=== PATIENT | male | born 1960 | race Caucasian/White ===

== ENCOUNTER → 2016-05-04 | Outpatient (CLI) | payer OTHER ==
[~2016-05-04] MED LIST: APIX1TAB PO; ASPEC81 PO; COLC0.6T54 PO; ERGO500037 PO; LPR100 PO; TRMO2580 TOP
== END | disposition home or self-care (01) ==
LOC: C.LAB 15:27
PROVIDERS: ATTEND Urology
DX: C61 Malignant neoplasm of prostate (principal)

== ENCOUNTER → 2016-07-12 | Outpatient (CLI) | payer OTHER ==
--- NOTE | 2016-07-12 11:23 | DIAGNOSTIC IMAGING REPORT ---
CHEST 2 VIEWS ROUTINE CLINICAL HISTORY: SOB dyspnea COMPARISON STUDY: 01/13/2016 FINDINGS: The bones soft tissues and hemidiaphragms are normal. The cardiomediastinal silhouette is normal. The lungs are clear. The pulmonary vasculature is normal. IMPRESSION: Negative chest. Electronically signed by: José Haley M.D. 07/12/2016 11:22 AM Dictated Date/Time: 07/12/2016 11:22 AM
== END | disposition home or self-care (01) ==
LOC: C.RAD1850 11:06
PROVIDERS: ATTEND Family Medicine
DX: R06.02 Shortness of breath (principal)

== ENCOUNTER 2024-03-11 16:39 | Inpatient (IN) ==
[2024-03-11] MEDS: SODIUM CHLORIDE 0.9% 1,000 ML IV ONE ×2 (16:57→17:48)
--- NOTE | 2024-03-11 17:12 | Emergency Department Note ---
Impression & Plan Acute perforated appendicitis, Acute hypotension, Atrial fibrillation, permanent, Chronic anticoagulation, Vomiting and diarrhea ED Provider Note NAME: LIZA STERLING AGE: 63 SEX: Male INFORMANT: Patient ED PROVIDER(S): Kevyn Khalil MD CHIEF COMPLAINT: Hypotension PLAN: Disposition: Admitted Outpatient prescription management: none Referral: None MEDICAL DECISION MAKING: Patient presented with hypotension. Workup was initiated. ECG did not show any acute ischemia. The patient was started on normal saline bolus. He had some tenderness in the right lower quadrant. He was found to have a leukocytosis on CBC. Chemistry panel revealed severe elevation of his creatinine. Potassium is normal. Concerning for acute renal failure. The patient received 1.5 L of normal saline for bolus. Blood pressure improved. Patient was sent for CT imaging. He was found to have findings concerning for perforated appendicitis. IV Zosyn was ordered after blood cultures. Patient's lactate was normal. I did place a consult with general surgery, internal medicine, and nephrology. Discussed the case with Dr. Zuluaga of general surgery. He agreed with the fluids and antibiotics. He will evaluate the patient for consultation. Did discuss the case with Dr. Turpin of nephrology. He recommended continued fluid resuscitation and also a dose of sodium bicarbonate. I did order 1 amp of sodium bicarb. Consultation was made with Dr. Be of the [facility] service. Patient was evaluated in the ER for further management. The patient was given additional fluid resuscitation with lactated Ringer's for total of 3 L. [place] body weight for sepsis was 2.1 L. Did consider pressors but however the patient's blood pressure improved into the 90s. This is likely mostly due to volume contraction due to poor intake and increased output. Patient also took his blood pressure medications which is complicating the issue. Patient will be admitted to the ICU for further management and care. I refer you to the EMR for further details. Care/management discussed with: Case management, nephrology, general surgery, internal medicine Level of care consideration(s): After review of the information above and other included data, I feel the patient requires escalation of care to admission Triage Nursing notes: reviewed and agree them. Vital Signs: reviewed and remarkable for hypotension Additional History obtained from: none Chronic Medical/Social Conditions affecting care: Hypertension Prior/ Outside/ External records reviewed: none Differential Diagnosis: Infection, dehydration, metabolic abnormality, hypo/hyperglycemia, electrolyte disturbance, anemia, hypoxia, cardiac sources, intracerebral event, toxicologic, neurologic, as well as other pathologies. Diagnostics, independently interpreted by me: ECG: Twelve-lead ECG reveals atrial fibrillation at [address] elevation or depression. Nonspecific ST. Cardiac Monitoring: Cardiac monitoring ordered by me: The patient was placed on continuous cardiac monitoring and observed. It revealed a atrial fibrillation at 54 bpm. Medical decision rules: none Imaging studies: CT scan of the abdomen pelvis reveals findings concerning for perforated appendicitis. No large fluid abscess present. I refer you to the EMR for further details. HPI: 63 year old Male arrives for evaluation of hypotension. Patient went to urgent care because of concerns for food poisoning. He states that he has had some nausea and vomiting with more diarrhea. Last diarrhea episode was 2 days ago. He has had decreased p.o. intake. He had some urine output but decreased. He is feeling weak and tired especially with exertion. He went to urgent care and was found to have hypotension. He was referred to the ER for further management. Patient notes some right-sided abdominal discomfort at times. He thinks that he got food poisoning from old marinara sauce on a dish that he prepared for himself. Patient was given no medication prehospital. Patient took his metoprolol last yesterday. He did take diltiazem, spironolactone, and his Xarelto today. Pt denies LOC, headache, fevers, chills, diaphoresis, visual changes, neck pain, chest pain, breathing difficulties, back pain, melena, hematochezia, urinary symptoms, numbness, lymphadenopathy, rash, or other complaints. PAST MEDICAL HISTORY: See Below, A-fib PAST SURGICAL HISTORY: See Below, SOCIAL HISTORY: See Below, no smoking HOME MEDICATIONS: See Below ALLERGIES: See Below VITALS: See Below PHYSICAL EXAMINATION: GENERAL: Awake, tired -appearing, in no distress HENT: Normocephalic, atraumatic. Oropharynx unremarkable. EYES: Normal conjunctiva. Sclera non-icteric. NECK: Inspection normal. Non-tender. Supple. No nuchal rigidity. FROM. No masses. RESPIRATORY: Clear to auscultation. No wheezes. No rales. Normal respiratory effort. CARDIAC: Normal rate. Normal rhythm. No murmurs. No rubs. Extremities warm and well perfused. Pulses equal. No JVD. GI: Soft, non-distended. Mild right lower chronic venous tenderness to palpation. No rebound or guarding. No masses. RECTAL: Deferred. MUSCULOSKELETAL: Atraumatic. Chest examination reveals no tenderness. The back is symmetrical on inspection without obvious abnormality. There is no CVA tenderness to palpation. No joint edema. LOWER EXTREMITIES: Calves are equal size bilaterally and non-tender. No edema. No discoloration. NEURO: Normal sensorium. No sensory or motor deficits noted. SKIN: No rash or jaundice noted. PROCEDURES: none CRITICAL CARE: I have personally spent 45 minutes of critical care time in the direct management of this patient. This includes bedside care, interpretation of diagnostic studies, and testing, discussion with consultants, patient, and other required patient management activities. These minutes are in excess of all separately billable procedures. OBSERVATION NOTE: none Past Med/Surg History Problem List (Updated 03/11/24 @ 22:36 by Kevyn Khalil MD) Acute perforated appendicitis (Acute) Metabolic acidosis Sepsis Acute kidney injury Appendicitis Vomiting and diarrhea (Acute) Acute hypotension (Acute) Stroke-like symptoms TIA (transient ischemic attack) Reactive airway disease Post-nasal drip Benign prostatic hyperplasia with urinary obstruction (Acute) CVA (cerebral vascular accident) (Acute) Dyslipidemia (Acute) Dyspnea on exertion (Acute) Elevated PSA (Acute) Incomplete bladder emptying (Acute) LVH (left ventricular hypertrophy) (Acute) Neoplasm of prostate (Acute) Obesity (Acute) Renal disease (Acute) Restless legs syndrome (Acute) Secondary hyperparathyroidism (Acute) UTI (urinary tract infection) (Acute) History of urinary frequency (Acute) Chronic anticoagulation (Acute) Atrial fibrillation, permanent (Acute) Vitamin D deficiency Chronic kidney disease, stage III (moderate) HTN (hypertension) (Chronic) Heart disease (Chronic) Abrasion (Acute) Acute renal failure (Acute) Fever (Acute) Flank pain (Acute) Prostate cancer (Acute 10/04/14) "Family history of prostate cancer Abnormal digital rectal exam pretreatment PSA 3.160 Status post ultrasound-guided biopsies revealing adenocarcinoma the prostate biopsy stage T2b [place] grade 3+3 Prostate volume 48.7 Prostate density 0.065 " Systemic inflammatory response syndrome (Acute) Medical History Atrial fibrillation, persistent Hematospermia Gout Surgical History H/O oral surgery H/O adenoidectomy Family History Father Prostate cancer Mother Breast cancer Heart disorder Social History Smoking Status: Never smoker Hx Alcohol Use: Yes Preferred Language: Kazakh marital status: Single current occupational status: employed Feels Safe at Home: Yes Allergies Allergies Allergy/AdvReac Type Severity Reaction Status Date / Time No Known Allergies Allergy Verified 03/11/24 18:46 Home Meds Home Medications Medication Instructions Recorded Confirmed atorvastatin 80 mg tablet 80 mg PO DAILY #90 tabs 01/19/19 03/11/24 metoprolol succinate 100 mg 100 mg PO DAILY 01/19/19 03/11/24 tablet,extended release 24 hr gabapentin 300 mg capsule 300 - 600 mg PO DAILY PRN Pain #90 03/25/19 03/11/24 caps losartan 100 mg tablet 100 mg PO DAILY 11/02/19 03/11/24 allopurinol 300 mg tablet 300 mg PO DAILY 11/07/20 03/11/24 ascorbic acid (vitamin C) 500 mg 1,500 mg PO DAILY 12/19/22 03/11/24 tablet (Vitamin C) multivitamin 1 tab PO DAILY 12/19/22 03/11/24 omeprazole 20 mg capsule,delayed 20 mg PO DAILY 03/11/24 03/11/24 release spironolactone 25 mg tablet 25 mg PO DAILY 03/11/24 03/11/24 Previous Rx's Medication Instructions Recorded rivaroxaban 15 mg tablet (Xarelto) 15 mg PO DAILY #30 tabs 05/24/22 finasteride 5 mg tablet 5 mg PO DAILY #90 tabs 10/16/23 calcitriol 0.25 mcg capsule 0.25 mcg PO DAILY #90 caps 03/03/24 diltiazem HCl 240 mg 240 mg PO DAILY #90 caps 03/03/24 capsule,extended release 24 hr tamsulosin 0.4 mg capsule 0.4 mg PO BID #180 caps 03/03/24 Results & Data (ED) Vital Signs Vital Signs - 24 hr 03/11/24 16:42 03/11/24 16:51 03/11/24 16:58 Temperature 36.6 C Temperature Source Oral Pulse Rate 56 L 62 Pulse Rate from SpO2 Sensor Respiratory Rate 18 Respiratory Effort / Characteristics Non-Labored Respiratory Depth Normal Blood Pressure 67/42 L Blood Pressure Mean 50 Pulse Oximetry 96 Oxygen Delivery Method Room Air Room Air Sepsis Recent Fever Within 48 Hours No Sepsis New/Unexplained Change in Mental Status No Sepsis Action Taken by Nursing No Action Required 03/11/24 17:03 03/11/24 17:18 03/11/24 17:45 Temperature Temperature Source Pulse Rate 61 64 Pulse Rate from SpO2 Sensor 65 63 Respiratory Rate 21 13 Respiratory Effort / Characteristics Respiratory Depth Blood Pressure 78/53 L 88/51 L 82/52 L Blood Pressure Mean 58 63 62 Pulse Oximetry 95 96 Oxygen Delivery Method Sepsis Recent Fever Within 48 Hours Sepsis New/Unexplained Change in Mental Status Sepsis Action Taken by Nursing 03/11/24 18:03 03/11/24 18:30 03/11/24 19:03 Temperature Temperature Source Pulse Rate 64 64 64 Pulse Rate from SpO2 Sensor 60 65 64 Respiratory Rate 21 27 H 28 H Respiratory Effort / Characteristics Respiratory Depth Blood Pressure 82/56 L 83/58 L 79/58 L Blood Pressure Mean 64 66 65 Pulse Oximetry 95 97 95 Oxygen Delivery Method Sepsis Recent Fever Within 48 Hours Sepsis New/Unexplained Change in Mental Status Sepsis Action Taken by Nursing 03/11/24 19:27 Temperature Temperature Source Pulse Rate 66 Pulse Rate from SpO2 Sensor 66 Respiratory Rate 18 Respiratory Effort / Characteristics Respiratory Depth Blood Pressure 90/59 L Blood Pressure Mean 69 Pulse Oximetry 96 Oxygen Delivery Method Sepsis Recent Fever Within 48 Hours Sepsis New/Unexplained Change in Mental Status Sepsis Action Taken by Nursing Laboratory Data 03/11/24 17:00 03/11/24 17:00 Lab Results 03/11/24 03/11/24 Range/Units 17:00 18:11 WBC 12.51 H (4.8-10.8) K/ul RBC 6.37 H (4.70-6.10) M/uL Hgb 13.5 L (14.0-18.0) g/dl Hct 43.1 (42.0-52.0) % MCV 67.7 L (80.0-100.0) fL MCH 21.2 L (25.0-34.0) pg MCHC 31.3 L (32.0-36.0) g/dL RDW Std Deviation 35.9 L (36.4-46.3) fL RDW Coeff of Aram 16.4 H (11.5-14.5) % Plt Count 288 (130-400) K/uL MPV 11.7 (9.4-12.4) fL Immature Gran % (Auto) 0.8 % Neut % (Auto) 79.0 % Lymph % (Auto) 12.6 % [place] % (Auto) 6.7 % Eos % (Auto) 0.6 % Baso % (Auto) 0.3 % Neut # (Auto) 9.87 H (1.40-6.50) K/uL Lymph # (Auto) 1.58 (1.20-3.40) K/uL [place] # (Auto) 0.84 H (0.11-0.59) K/uL Eos # (Auto) 0.08 (0.00-0.50) K/uL Baso # (Auto) 0.04 (0.00-0.20) K/uL Immature Gran # (Auto) 0.10 (0.01-0.20) K/uL Microcytosis Present Sodium 136 (136-145) mmol/L Potassium 4.9 (3.5-5.1) mmol/L Chloride 106 (98-107) mmol/L Carbon Dioxide 16 L (21-32) mmol/L Anion Gap 14 H (3-11) BUN 130 H (6-23) mg/dl Creatinine 8.18 H* (0.6-1.4) mg/dl Est Cr Clr Drug Dosing 11.6 ml/min eGFR 6.88 BUN/Creatinine Ratio 15.9 (10-20) Glucose 96 (70-99(Fasting)) mg/dl Lactate 1.0 (0.4-2.0) mmol/L Calcium 8.9 (8.6-10.3) mg/dl Total Bilirubin 0.5 (0.2-1.0) mg/dl AST 18 (13-39) U/L ALT 28 (7-52) U/L Alkaline Phosphatase 73 (34-104) U/L Total Protein 7.4 (6.0-8.3) gm/dl Albumin 3.1 L (3.4-5.0) gm/dl Globulin 4.3 H (2.5-4.0) gm/dl Albumin/Globulin Ratio 0.7 L (0.9-2) Lipase 352 H (11-82) U/L Procalcitonin 1.65 H (0-0.5) ng/ml Administered Medications Discontinued Medications Sodium Chloride (Nss) 1,000 mls @ 999 mls/hr IV .Q1H1M ONE Stop: 03/11/24 17:54 Last Infusion: 03/11/24 17:48 Dose: Infused Documented By: Admin: 03/11/24 16:57 Dose: 999 mls/hr Documented By: MERNA Sodium Chloride (Nss) 1,000 mls @ 999 mls/hr IV .Q1H1M ONE Stop: 03/11/24 18:45 Last Infusion: 03/11/24 18:15 Dose: Infused Documented By: Admin: 03/11/24 17:48 Dose: 999 mls/hr Documented By: HANNAH Piperacillin Sod/Tazobactam Sod (Zosyn) 4.5 gm in 100 mls @ 200 mls/hr IV NOW ONE; Protocol Stop: 03/11/24 18:25 Last Infusion: 03/11/24 19:19 Dose: Infused Documented By: Admin: 03/11/24 18:48 Dose: 200 mls/hr Documented By: MERNA Sodium Chloride (Nss) 500 mls @ 999 mls/hr IV .Q31M ONE Stop: 03/11/24 18:26 Last Admin: 03/11/24 18:16 Dose: Not Given Documented By: NRB Lactated Ringer's (Lr) 1,000 mls @ 999 mls/hr IV .Q1H1M ONE Stop: 03/11/24 19:11 Last Infusion: 03/11/24 19:19 Dose: Infused Documented By: Admin: 03/11/24 18:16 Dose: 999 mls/hr Documented By: NRB Lactated Ringer's (Lr) 1,000 mls @ 999 mls/hr IV .Q1H1M ONE Stop: 03/11/24 20:03 Last Infusion: 03/11/24 20:29 Dose: Infused Documented By: Admin: 03/11/24 19:18 Dose: 999 mls/hr Documented By: MERNA Piperacillin Sod/Tazobactam Sod (Zosyn) 4.5 gm in 100 mls @ 25 mls/hr IV Q8H [facility]; Protocol Stop: 03/21/24 19:44 Last Admin: 03/11/24 20:33 Dose: Not Given Documented By: MERNA Ondansetron HCl (Ondansetron Inj 2 Mg/Ml 2 Ml Vial) 4 mg IV NOW STA Stop: 03/11/24 17:48 Last Admin: 03/11/24 18:46 Dose: 4 mg Documented By: MERNA Sodium Bicarbonate (Sodium Bicarb 8.4% Inj 50 Meq/50 Ml Syr) 50 meq IV NOW STA Stop: 03/11/24 18:17 Last Admin: 03/11/24 18:47 Dose: 50 meq Documented By: MERNA Imaging Data Radiologist's Impression: Abdomen/Pelvis CT 03/11/24 17:12 EXAM: CT Abdomen and Pelvis Without Intravenous Contrast INDICATION: Right abdominal pain, diarrhea and hypotension. TECHNIQUE: Axial computed tomography images of the abdomen and pelvis without intravenous contrast. Sagittal and coronal reformatted images were created and reviewed. This CT exam was performed using one or more of the following dose reduction techniques: automated exposure control, adjustment of the mA and/or kV according to patient size, and/or use of iterative reconstruction technique. COMPARISON: Limited comparison made to CT chest which includes the upper abdomen 06/04/2023 FINDINGS: Limitations: None. Lung bases: No abnormality noted. Pleural space: No visualized pleural effusion or pneumothorax. Heart: Cardiomegaly. Mediastinum: No abnormality noted. ABDOMEN: Liver: Lack of intravenous contrast limits detection of some masses. No abnormality noted. Gallbladder and bile ducts: No calcified stones or surrounding fluid. Pancreas: No pancreatic mass, calcification, inflammation or ductal dilation noted. Spleen: No significant abnormality noted. Adrenals: Stable 2.8 x 2.6 cm right adrenal adenoma. No further assessment required. The left appears normal. Kidneys and ureters: Atrophic scarred right kidney. There is mild cortical scarring left kidney. Simple left renal cyst/s. No simple cyst follow-up necessary. Right kidney appears normal. No renal stone, hydronephrosis or perinephric fluid. Stomach and bowel: There is no intestinal obstruction. There is mild edema of the proximal ascending colon. No pneumatosis. The terminal ileum is identified and appears normal. PELVIS: Appendix: In the right lower quadrant centered over the expected location of the appendix are multiple pockets of extraluminal fluid and gas and generalized inflammation. The process and total measures approximately 10.4 cm long by 5.4 cm transverse by 4.4 cm AP with inflammation extending to involve the mid a ascending colon. Bladder: Appears normal for the degree of filling. No stones or inflammation. No large mass. Masses may not be detected in the absence of opacification. Reproductive: No abnormalities noted. ABDOMEN and PELVIS: Intraperitoneal space: No free air. No significant fluid collection. Bones/joints: Degenerative changes noted in the scoliotic spine. No acute osseous abnormality noted. Soft tissues: Umbilical hernia containing fat. Vasculature: No abdominal aortic aneurysm. Lymph nodes: No pathologically enlarged lymph nodes. IMPRESSION: 1. There is a moderate phlegmonous process in the right lower quadrant centered at the expected location of the appendix with multiple small air-fluid levels and free mesenteric gas. Findings most consistent with locally perforated appendicitis. There is no organized or drainable collection. 2. Atrophic right kidney and scarred left kidney. Appendiceal findings discussed by phone with Dr. Kevyn Khalil at 5:55 PM 03/11/2024. ACT 112: Negative or not required by law. Electronically signed by Shelly Escobar 03-11-2024 5:56 PM Discharge Plan Visit Data Chief Complaint: Abdominal Pain Stated Complaint: ABD PAIN ED Provider: Kevyn Khalil Discharge Problem: Acute perforated appendicitis, Acute hypotension, Atrial fibrillation, permanent, Chronic anticoagulation, Vomiting and diarrhea Patient Disposition: Admitted As Inpatient Discharge Instructions Interventions: ED Discharge Assessment Last Done: 03/11/24 21:45
[2024-03-11 17:32] LABS: Hematocrit (blood only) 43.1 % (42.0-52.0); Hemoglobin 13.5 g/dl (14.0-18.0); Mean Corpuscular Hemoglobin 21.2 pg (25.0-34.0); Mean Corpuscular Hgb Conc 31.3 g/dL (32.0-36.0); Mean Corpuscular Volume 67.7 fL (80.0-100.0); Mean Platelet Volume 11.7 fL (9.4-12.4); Platelet Count 288 K/uL (130-400); RDW Coefficient of Variation 16.4 % (11.5-14.5); RDW Standard Deviation 35.9 fL (36.4-46.3); Red Blood Count 6.37 M/uL (4.70-6.10); White Blood Count 12.51 K/ul (4.8-10.8)
[2024-03-11 17:48] LABS: Albumin Globulin Ratio 0.7 (0.9-2); Albumin Level 3.1 gm/dl (3.4-5.0); Bilirubin,Total 0.5 mg/dl (0.2-1.0); Calcium 8.9 mg/dl (8.6-10.3); Creatinine Clr Calc Pharmacy 11.6 ml/min; Globulin 4.3 gm/dl (2.5-4.0); Potassium 4.9 mmol/L (3.5-5.1); Total Protein 7.4 gm/dl (6.0-8.3)
[2024-03-11 17:56] LABS: BUN Creatinine Ratio 15.9 (10-20); Basophils # (auto) 0.04 K/uL (0.00-0.20); Basophils % (auto) 0.3 %; Eosinophils # (auto) 0.08 K/uL (0.00-0.50); Eosinophils % (auto) 0.6 %; Immature Granulocytes % (auto) 0.8 %; Lymphocytes # (auto) 1.58 K/uL (1.20-3.40); Lymphocytes % (auto) 12.6 %; Microcytosis Present; Monocytes # (auto) 0.84 K/uL (0.11-0.59); Monocytes % (auto) 6.7 %; Neutrophils # (auto) 9.87 K/uL (1.40-6.50)
--- NOTE | 2024-03-11 17:56 | CT Scan Report ---
EXAM: CT Abdomen and Pelvis Without Intravenous Contrast INDICATION: Right abdominal pain, diarrhea and hypotension. TECHNIQUE: Axial computed tomography images of the abdomen and pelvis without intravenous contrast. Sagittal and coronal reformatted images were created and reviewed. This CT exam was performed using one or more of the following dose reduction techniques: automated exposure control, adjustment of the mA and/or kV according to patient size, and/or use of iterative reconstruction technique. COMPARISON: Limited comparison made to CT chest which includes the upper abdomen 06/04/2023 FINDINGS: Limitations: None. Lung bases: No abnormality noted. Pleural space: No visualized pleural effusion or pneumothorax. Heart: Cardiomegaly. Mediastinum: No abnormality noted. ABDOMEN: Liver: Lack of intravenous contrast limits detection of some masses. No abnormality noted. Gallbladder and bile ducts: No calcified stones or surrounding fluid. Pancreas: No pancreatic mass, calcification, inflammation or ductal dilation noted. Spleen: No significant abnormality noted. Adrenals: Stable 2.8 x 2.6 cm right adrenal adenoma. No further assessment required. The left appears normal. Kidneys and ureters: Atrophic scarred right kidney. There is mild cortical scarring left kidney. Simple left renal cyst/s. No simple cyst follow-up necessary. Right kidney appears normal. No renal stone, hydronephrosis or perinephric fluid. Stomach and bowel: There is no intestinal obstruction. There is mild edema of the proximal ascending colon. No pneumatosis. The terminal ileum is identified and appears normal. PELVIS: Appendix: In the right lower quadrant centered over the expected location of the appendix are multiple pockets of extraluminal fluid and gas and generalized inflammation. The process and total measures approximately 10.4 cm long by 5.4 cm transverse by 4.4 cm AP with inflammation extending to involve the mid a ascending colon. Bladder: Appears normal for the degree of filling. No stones or inflammation. No large mass. Masses may not be detected in the absence of opacification. Reproductive: No abnormalities noted. ABDOMEN and PELVIS: Intraperitoneal space: No free air. No significant fluid collection. Bones/joints: Degenerative changes noted in the scoliotic spine. No acute osseous abnormality noted. Soft tissues: Umbilical hernia containing fat. Vasculature: No abdominal aortic aneurysm. Lymph nodes: No pathologically enlarged lymph nodes. IMPRESSION: 1. There is a moderate phlegmonous process in the right lower quadrant centered at the expected location of the appendix with multiple small air-fluid levels and free mesenteric gas. Findings most consistent with locally perforated appendicitis. There is no organized or drainable collection. 2. Atrophic right kidney and scarred left kidney. Appendiceal findings discussed by phone with Dr. Kevyn Khalil at 5:55 PM 03/11/2024. ACT 112: Negative or not required by law. Electronically signed by Shelly Escobar 03-11-2024 5:56 PM
[2024-03-11] MEDS: LACTATED RINGER'S 1,000 ML IV ONE ×2 (18:16→19:18)
[2024-03-11] MEDS: SODIUM CHLORIDE 0.9% 500 ML IV ONE (18:16)
[2024-03-11] MEDS: ONDANSETRON INJ 2 MG/ML 2 ML VIAL IV STA (18:46)
[2024-03-11] MEDS: SODIUM BICARB 8.4% INJ 50 MEQ/50 ML SYR IV STA (18:47)
[2024-03-11] MEDS: PIPERACILLIN/TAZOBACTAM 4.5 GM/100 ML BAG IV ONE (18:48)
--- NOTE | 2024-03-11 18:57 | History & Physical Report ---
Date of Service March 11, 2024 Assessment & Plan (1) Sepsis: (2) Acute kidney injury: (3) Appendicitis: (4) Metabolic acidosis: (5) Acute hypotension: (6) Atrial fibrillation, permanent: (7) Chronic kidney disease, stage III (moderate): (8) HTN (hypertension): (9) Chronic anticoagulation: (10) Dyslipidemia: Plan 1. Sepsis and Acute hypotension - Secondary to ruptured appendicitis - BP on arrival : 60/42------3L Isotonic fluid resuscitation ------ 88/51( MAP 61-63 on ED). - Patient weak and fatigued but not dizzy. - QSOFA: 2/3 Criteria fulfilled( RR: 28 on arrival, BP: 60/42); good response to fluid challenge on ED( MAP 61-63) - Labs: WBC : mildly elevated( 12k) with neutrophil predominance Procal : Elevated Lactate: WNL Creatinine: 8.18/ BUN: 130( BUN/Cr>10); baseline Cr: 1.88- 2.46) - CT abdomen and pelvis: Moderate Phlegmonous process in RLQ, multiple air fluid level and free mesenteric gas. Consistent with locally perforated appendicitis. No organized collection for drainage. Atrophic right Kidney and scarred left kidney. - Surgery consulted STAT: No indication for emergency surgery Admit for IV antibiotics and IV fluids Diet: NPO - IV antibiotics : Inj Tazopip 4.5 gm IV 8 hourly - IV fluids: 3 L bolus at ED, continue maintenance fluid LR at 100 ml/hour - Castellano's catheterization recommended for accurate I/O charting and tailor management on basis of fluid response. - Target MAP : 60-65, patient improving trend so far until admission. 2. VALERI on CKD: - Secondary to poor intake, Sepsis and GI loss - Creatinine: 8.18/ BUN: 130( BUN/Cr>10); baseline Cr: 1.88- 2.46) - BUN/Cr ratio >10( VALERI seems prerenal at this point). - Urinalysis ordered to R/O renal cause. - Repeat AM labs, see fluid response, and Urine output and decide further management. - Clinically BL lungs are clear, patient is not uremic, electrolytes normal. - Chest Xray STAT ordered despite clinically dry lungs; would be helpful as baseline to compare later. - Mild anion gap metabolic acidosis, hoping to improve on fluid resuscitation. - Nephrology consult ordered. 3. Appendicitis - Presented with pain on RLQ, diarrhoea, nausea , vomiting in Sepsis. - CT abdomen and pelvis: Moderate Phlegmonous process in RLQ, multiple air fluid level and free mesenteric gas. Consistent with locally perforated appendicitis. No organized collection for drainage. Atrophic right Kidney and scarred left kidney. - Surgery consult: No indication for emergency surgery Admit for IV antibiotics and IV fluids Diet: NPO - IV antibiotics : Inj Tazopip 4.5 gm IV 8 hourly - Surgery team will F/U patient for further management. 4. Metabolic acidosis with mild increased anion gap - Mild increase in anion gap: 14. Likely d/t VALERI, CKD, sepsis. - IV fluid changed from NSS to LR. - Anticipate correction with LR fluid resuscitation. - Plan VBG in AM tomorrow. Other chronic issue 1. AFIb: Afib with rate control. HR; 60-70 Hold home medications (metoprolol, Rivaroxaban, Diltiazem) for hypotension and possible surgery. 2. HTN: BP low now, Hold home BP meds. 3. Dyslipidemia: Atorvastatin on hold ( strict NPO), resume once stable. 4. Prostrate cancer: Active surveillance ongoing for low risk grade, F/U with Uro on Outpatient basis Dispo Admit in PCU telemetry. DVT prophylaxis: Mechanical (Pharmacological avoided for possible surgery). Code status: Full code History of Present Illness Chief Complaint: Mr. Segovia is a 63-year-old male with a history of Atrial Fibrillation, Prior CVA, LVH, Stage III CKD, Secondary Hyperparathyroidism, Obesity, Restless Leg Syndrome, Prostate Cancer, and TIA/Hypertensive Urgency, who presented in ED after being referred from urgent care for low blood pressure, weakness, fatigue. He started having abdominal pain, dull aching and diffuse 2 weeks back. It was bearable and he though he had some food poisoning, hence did not seek any medical attention. However 4 days back he started having diarrhoea, multiple episodes and abdominal pain increased since then. He started feeling fatigued and weak since then. Last episode of diarrhoea was 2 days back. Today he went to Urgent care, his blood pressure was very low, hence sent to ED. He endorses some nausea and vomiting as well. He says he lost 20 pounds of weight during this period. He noticed decreases urine output as well. On arrival to ED blood pressure was still low, he has received 3L of fluids so far, still feels same. No fever, blood on stool , rash, SOB, Chest pain, Palpitation, burning urine, loss of consciousness. No headache, syncope, lightheadedness, dizziness. PMH: reviewed PSH: Reviewed Drug and Allergy reviewed: No known allergy Discussed Code status: Full Code Primary Care Provider: Diann Berrios Allergies Allergy/AdvReac Type Severity Reaction Status Date / Time No Known Allergies Allergy Verified 03/11/24 18:46 Home Medications Medication Instructions Recorded Confirmed Type atorvastatin 80 mg tablet 80 mg PO DAILY #90 tabs 01/19/19 03/11/24 History metoprolol succinate 100 mg 100 mg PO DAILY 01/19/19 03/11/24 History tablet,extended release 24 hr gabapentin 300 mg capsule 300 - 600 mg PO DAILY PRN Pain #90 03/25/19 03/11/24 History caps losartan 100 mg tablet 100 mg PO DAILY 11/02/19 03/11/24 History allopurinol 300 mg tablet 300 mg PO DAILY 11/07/20 03/11/24 History rivaroxaban 15 mg tablet (Xarelto) 15 mg PO DAILY #30 tabs 05/24/22 03/11/24 Rx ascorbic acid (vitamin C) 500 mg 1,500 mg PO DAILY 12/19/22 03/11/24 History tablet (Vitamin C) multivitamin 1 tab PO DAILY 12/19/22 03/11/24 History finasteride 5 mg tablet 5 mg PO DAILY #90 tabs 10/16/23 03/11/24 Rx calcitriol 0.25 mcg capsule 0.25 mcg PO DAILY #90 caps 03/03/24 03/11/24 Rx diltiazem HCl 240 mg 240 mg PO DAILY #90 caps 03/03/24 03/11/24 Rx capsule,extended release 24 hr tamsulosin 0.4 mg capsule 0.4 mg PO BID #180 caps 03/03/24 03/11/24 Rx omeprazole 20 mg capsule,delayed 20 mg PO DAILY 03/11/24 03/11/24 History release spironolactone 25 mg tablet 25 mg PO DAILY 03/11/24 03/11/24 History Past Med/Surg History Problem List (Updated 03/11/24 @ 22:36 by Kevyn Khalil MD) Acute perforated appendicitis (Acute) Metabolic acidosis Sepsis Acute kidney injury Appendicitis Vomiting and diarrhea (Acute) Acute hypotension (Acute) Stroke-like symptoms TIA (transient ischemic attack) Reactive airway disease Post-nasal drip Benign prostatic hyperplasia with urinary obstruction (Acute) CVA (cerebral vascular accident) (Acute) Dyslipidemia (Acute) Dyspnea on exertion (Acute) Elevated PSA (Acute) Incomplete bladder emptying (Acute) LVH (left ventricular hypertrophy) (Acute) Neoplasm of prostate (Acute) Obesity (Acute) Renal disease (Acute) Restless legs syndrome (Acute) Secondary hyperparathyroidism (Acute) UTI (urinary tract infection) (Acute) History of urinary frequency (Acute) Chronic anticoagulation (Acute) Atrial fibrillation, permanent (Acute) Vitamin D deficiency Chronic kidney disease, stage III (moderate) HTN (hypertension) (Chronic) Heart disease (Chronic) Abrasion (Acute) Acute renal failure (Acute) Fever (Acute) Flank pain (Acute) Prostate cancer (Acute 10/04/14) "Family history of prostate cancer Abnormal digital rectal exam pretreatment PSA 3.160 Status post ultrasound-guided biopsies revealing adenocarcinoma the prostate biopsy stage T2b Deland grade 3+3 Prostate volume 48.7 Prostate density 0.065 " Systemic inflammatory response syndrome (Acute) Medical History Atrial fibrillation, persistent Hematospermia Gout Surgical History H/O oral surgery H/O adenoidectomy Family History Father Prostate cancer Mother Breast cancer Heart disorder Social History Smoking Status: Unknown if ever smoked Hx Alcohol Use: No Hx Substance Use: No Preferred Language: Czech Communication Ability: Effective 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 Beliefs That Will Affect Care: None marital status: Single Current Living Situation: Alone current occupational status: employed Other Information That Helps Us Care for You: No Feels Safe at Home: Yes Safety Concerns: Feels Safe At This Time Assistive Devices: Glasses Review of Systems Review of Systems: As per HPI Physical Exam Physical Exam: Constitutional: Well appearing, No acute distress, shivering due to ongoing fluid( recommended warm fluid) HEENT: Atraumatic, Normocephalic, No conjunctival injection CVS: S1 S2 no murmur, IRIR, mild LE edema noted Respiratory: BL decreased air entry with NVBS. No rhonchi, wheezes, or crackles. No increased work of breathing GI: Tenderness noted in RLQ, Nondistended, Bowel sounds +, No CVA tenderness MSK: No gross deformities noted Skin: Cold peripheries, Fluid resuscitation was ongoing Neuro: Alert, Oriented to TPP, No Focal deficit Psych: Mood and Affect congruent, Cooperative on exam Results & Data Results & Data Vital Signs (Past 12 Hours) Vital Signs Temp Pulse Resp BP Pulse Ox O2 Del Method 03/11/24 17:18 61 21 88/51 L 95 03/11/24 17:03 78/53 L 03/11/24 16:58 62 03/11/24 16:51 Room Air 03/11/24 16:42 36.6 C 56 L 18 67/42 L 96 Room Air Supervising Physician Co-Signing Physician Notes I personally saw and examined the patient. I independently reviewed the labs, EKG, imaging, problem list, medication list, past medical history and family history. I verified all gunter points and agree with resident physician Dr Tricia Bach MD with the following exceptions and/or additions: 63 year old presents to the ER with intermittent abdominal pain for the last 2 weeks. Went to urgent care due to concerns about food poisoning with nausea, vomiting, diarrhea and abdominal pain. No recent diarrhea. O/E HS irregular rhythm, regular rate, no murmurs, Chest CTAB, Abdo mild RLQ, no guarding or rebound tenderness A/P Sepsis - met qSOFA criteria, suspected source appendicitis, IV fluids bolus given due to hypotension (now resolved), Lactate WNL. IV Zosyn empirically. Follow up blood cultures VALERI - suspect mostly pre-renal although UA pending, urine appears grossly clear and diluted, castellano catheter inserted for accurate I&Os and determine risk of needing dialysis, consult nephrology Chronic atrial fibrillation - HR inappropriately low due to excessive beta- blockade and Calcium channel blockers in setting of VALERI, hold metoprolol and diltiazem. Hold Xarelto due to VALERI he is over treated, last dose was this morning Mixed anion gap and non anion gap metabolic acidosis - repeat VBG and BMP to determine ongoing IV fluids since he was given NSS with fluid resuscitation but also 50 meq sodium bicarb Resident Activity Tracking Resident Involvement: Resident Care Provided Care Provided: Adult Hospital Medicine (3) Appendicitis Acute appendicitis type: with localized peritonitis Appendicitis abscess presence: without abscess Appendicitis gangrene presence: unspecified whether gangrene present Appendicitis perforation presence: with perforation Appendicitis type: acute appendicitis Qualified Code(s): K35.32 - Acute appendicitis with perforation, localized peritonitis, and gangrene, without abscess (8) HTN (hypertension) Hypertension type: primary hypertension Qualified Code(s): I10 - Essential (primary) hypertension
--- NOTE | 2024-03-11 19:13 | Surgery Consultation ---
Date of Consultation March 11, 2024 Assessment & Plan (1) Appendicitis: 63-year-old gentleman with a perforated appendicitis with large phlegmon and small fluid collections. There is no free perforation. He has no peritoneal signs. White count of 12. There is no abscess to drain. He will be admitted t o the hospitalist service for IV antibiotic and fluid resuscitation. He has been placed on Zosyn. N.p.o. for now. He has extensive cardiac and nephrology history and the services will be consulted. No surgical intervention required at this time. We will continue to follow closely. History of Present Illness Reason for Consultation: Perforated appendicitis Requesting Physician: ED physician Attending Physician: ED physician History of Present Illness 63-year-old gentleman presents with a 2-1/2-week history of vague abdominal pain nausea and loss of appetite. He states that the pain was in a band across his lower abdomen. He thought he had food poisoning. He had more sharp stabbing type pain in the right lower quadrant. He has not had an appetite. He has had some diarrhea. He has had on and off chills and fevers. He states that for the last few days the pain has been less. He has an extensive cardiac history and is on Xarelto. Allergies Allergy/AdvReac Type Severity Reaction Status Date / Time No Known Allergies Allergy Verified 03/11/24 18:46 Home Medications Medication Instructions Recorded Confirmed Type atorvastatin 80 mg tablet 80 mg PO DAILY #90 tabs 01/19/19 03/11/24 History metoprolol succinate 100 mg 100 mg PO DAILY 01/19/19 03/11/24 History tablet,extended release 24 hr gabapentin 300 mg capsule 300 - 600 mg PO DAILY PRN Pain #90 03/25/19 03/11/24 History caps losartan 100 mg tablet 100 mg PO DAILY 11/02/19 03/11/24 History allopurinol 300 mg tablet 300 mg PO DAILY 11/07/20 03/11/24 History rivaroxaban 15 mg tablet (Xarelto) 15 mg PO DAILY #30 tabs 05/24/22 03/11/24 Rx ascorbic acid (vitamin C) 500 mg 1,500 mg PO DAILY 12/19/22 03/11/24 History tablet (Vitamin C) multivitamin 1 tab PO DAILY 12/19/22 03/11/24 History finasteride 5 mg tablet 5 mg PO DAILY #90 tabs 10/16/23 03/11/24 Rx calcitriol 0.25 mcg capsule 0.25 mcg PO DAILY #90 caps 03/03/24 03/11/24 Rx diltiazem HCl 240 mg 240 mg PO DAILY #90 caps 03/03/24 03/11/24 Rx capsule,extended release 24 hr tamsulosin 0.4 mg capsule 0.4 mg PO BID #180 caps 03/03/24 03/11/24 Rx omeprazole 20 mg capsule,delayed 20 mg PO DAILY 03/11/24 03/11/24 History release spironolactone 25 mg tablet 25 mg PO DAILY 03/11/24 03/11/24 History Patient History Medical History Atrial fibrillation, persistent Hematospermia Gout Surgical History H/O oral surgery H/O adenoidectomy Family History Father Prostate cancer Mother Breast cancer Heart disorder Social History Smoking Status: Never smoker Hx Alcohol Use: Yes Preferred Language: Grenadian marital status: Single current occupational status: employed Feels Safe at Home: Yes Review of Systems Review of Systems: All systems reviewed & are unremarkable except as noted in HPI & below Physical Exam Constitutional: WD/WN, vitals as above Eyes: PERRL, conjunctivae normal, anicteric sclerae Neck: trachea midline, no thyromegaly Respiratory: normal respiratory effort; no respiratory distress and no labored breathing Cardiovascular: Rate/Rhythm: regular rate and regular rhythm Gastrointestinal (Abdomen): Inspection/Auscultation: abdomen normal to inspection and + abdomen distended ( Mild) Percussion/Palpation: + abdomen tender ( RLQ) and abdomen soft; no guarding and abdomen not rigid Skin: no rashes, warm and dry Psychiatric: A+Ox3, euthymic affect Results & Data Vital Signs (Past 12 Hours) Vital Signs Temp Pulse Resp BP Pulse Ox O2 Del Method 03/11/24 17:18 61 21 88/51 L 95 03/11/24 17:03 78/53 L 03/11/24 16:58 62 11/27/24 16:51 Room Air 03/11/24 16:42 36.6 C 56 L 18 67/42 L 96 Room Air Laboratory Results 03/11/24 03/11/24 Range/Units 18:11 17:00 WBC 12.51 H (4.8-10.8) K/ul RBC 6.37 H (4.70-6.10) M/uL Hgb 13.5 L (14.0-18.0) g/dl Hct 43.1 (42.0-52.0) % MCV 67.7 L (80.0-100.0) fL MCH 21.2 L (25.0-34.0) pg MCHC 31.3 L (32.0-36.0) g/dL RDW Std Deviation 35.9 L (36.4-46.3) fL RDW Coeff of Aram 16.4 H (11.5-14.5) % Plt Count 288 (130-400) K/uL MPV 11.7 (9.4-12.4) fL Immature Gran % (Auto) 0.8 % Neut % (Auto) 79.0 % Lymph % (Auto) 12.6 % [place] % (Auto) 6.7 % Eos % (Auto) 0.6 % Baso % (Auto) 0.3 % Neut # (Auto) 9.87 H (1.40-6.50) K/uL Lymph # (Auto) 1.58 (1.20-3.40) K/uL [place] # (Auto) 0.84 H (0.11-0.59) K/uL Eos # (Auto) 0.08 (0.00-0.50) K/uL Baso # (Auto) 0.04 (0.00-0.20) K/uL Immature Gran # (Auto) 0.10 (0.01-0.20) K/uL Microcytosis Present Sodium 136 (136-145) mmol/L Potassium 4.9 (3.5-5.1) mmol/L Chloride 106 (98-107) mmol/L Carbon Dioxide 16 L (21-32) mmol/L Anion Gap 14 H (3-11) BUN 130 H (6-23) mg/dl Creatinine 8.18 H* (0.6-1.4) mg/dl Est Cr Clr Drug Dosing 11.6 ml/min eGFR 6.88 BUN/Creatinine Ratio 15.9 (10-20) Glucose 96 (70-99(Fasting)) mg/dl Lactate 1.0 (0.4-2.0) mmol/L Calcium 8.9 (8.6-10.3) mg/dl Total Bilirubin 0.5 (0.2-1.0) mg/dl AST 18 (13-39) U/L ALT 28 (7-52) U/L Alkaline Phosphatase 73 (34-104) U/L Total Protein 7.4 (6.0-8.3) gm/dl Albumin 3.1 L (3.4-5.0) gm/dl Globulin 4.3 H (2.5-4.0) gm/dl Albumin/Globulin Ratio 0.7 L (0.9-2) Lipase 352 H (11-82) U/L Procalcitonin Pending Diagnostic Findings EXAM: CT Abdomen and Pelvis Without Intravenous Contrast INDICATION: Right abdominal pain, diarrhea and hypotension. TECHNIQUE: Axial computed tomography images of the abdomen and pelvis without intravenous contrast. Sagittal and coronal reformatted images were created and reviewed. This CT exam was performed using one or more of the following dose reduction techniques: automated exposure control, adjustment of the mA and/or kV according to patient size, and/or use of iterative reconstruction technique. COMPARISON: Limited comparison made to CT chest which includes the upper abdomen 06/04/2023 FINDINGS: Limitations: None. Lung bases: No abnormality noted. Pleural space: No visualized pleural effusion or pneumothorax. Heart: Cardiomegaly. Mediastinum: No abnormality noted. ABDOMEN: Liver: Lack of intravenous contrast limits detection of some masses. No abnormality noted. Gallbladder and bile ducts: No calcified stones or surrounding fluid. Pancreas: No pancreatic mass, calcification, inflammation or ductal dilation noted. Spleen: No significant abnormality noted. Adrenals: Stable 2.8 x 2.6 cm right adrenal adenoma. No further assessment required. The left appears normal. Kidneys and ureters: Atrophic scarred right kidney. There is mild cortical scarring left kidney. Simple left renal cyst/s. No simple cyst follow-up necessary. Right kidney appears normal. No renal stone, hydronephrosis or perinephric fluid. Stomach and bowel: There is no intestinal obstruction. There is mild edema of the proximal ascending colon. No pneumatosis. The terminal ileum is identified and appears normal. PELVIS: Appendix: In the right lower quadrant centered over the expected location of the appendix are multiple pockets of extraluminal fluid and gas and generalized inflammation. The process and total measures approximately 10.4 cm long by 5.4 cm transverse by 4.4 cm AP with inflammation extending to involve the mid a ascending colon. Bladder: Appears normal for the degree of filling. No stones or inflammation. No large mass. Masses may not be detected in the absence of opacification. Reproductive: No abnormalities noted. ABDOMEN and PELVIS: Intraperitoneal space: No free air. No significant fluid collection. Bones/joints: Degenerative changes noted in the scoliotic spine. No acute osseous abnormality noted. Soft tissues: Umbilical hernia containing fat. Vasculature: No abdominal aortic aneurysm. Lymph nodes: No pathologically enlarged lymph nodes. IMPRESSION: 1. There is a moderate phlegmonous process in the right lower quadrant centered at the expected location of the appendix with multiple small air-fluid levels and free mesenteric gas. Findings most consistent with locally perforated appendicitis. There is no organized or drainable collection. 2. Atrophic right kidney and scarred left kidney. Appendiceal findings discussed by phone with Dr. Kevyn Khalil at 5:55 PM 03/11/2024. (1) Appendicitis Appendicitis type: acute appendicitis Acute appendicitis type: with localized peritonitis Appendicitis gangrene presence: unspecified whether gangrene present Appendicitis perforation presence: with perforation Appendicitis abscess presence: without abscess Qualified Code(s): K35.32 - Acute appendicitis with perforation, localized peritonitis, and gangrene, without abscess
[2024-03-11] MEDS ORDERED: ACETAMINOPHEN 325 MG TAB PO PRN (19:29)
[2024-03-11] MEDS: PIPERACILLIN/TAZOBACTAM 4.5 GM/100 ML BAG IV SCH (20:33)
[2024-03-11] MEDS ORDERED: ACETAMINOPHEN 1,000 MG/100 ML VIAL IV PRN (22:45)
[2024-03-11] MEDS: LACTATED RINGER'S 1,000 ML IV SCH (22:46)
[2024-03-11 22:47] LABS: HCO3 VBG 16 mmol/L; Oxygen Saturation VBG < 60.0 %; PCO2 VBG 41 mmHg (38-50); PO2 VBG 33 mmHg; pH VBG 7.21 (7.36-7.41)
[2024-03-11 23:09] LABS: Appearance Urine Clear (Clear); Bacteria Urine Automated None Seen (None Seen); Bilirubin Urine Negative (Negative); Blood Urine 1+ (Negative); Color Urine Yellow; Epithelial Cell Urine Auto 0-2 /hpf (0-2); Glucose Urine UA Negative (Negative); Ketones Urine Negative (Negative); Leukocyte Esterase Urine Negative (Negative); Nitrite Urine Negative (Negative); Protein Urine Trace (Negative); Specific Gravity Urine 1.014 (1.000-1.030); Urobilinogen Urine Negative (Negative); WBC Urine Automated 0-5 /hpf (0-5)
--- NOTE | 2024-03-11 23:15 | Billing Data ---
Date of Service March 11, 2024 Coding Level of Care Code 54539 INT INP/OBS CARE
[2024-03-11 23:22] LABS: BUN Creatinine Ratio 16.9 (10-20); Potassium 5.1 mmol/L (3.5-5.1)
--- NOTE | 2024-03-11 23:49 | XRay Report ---
Exam(s): XR CXR 1 VIEW EXAM: XR Chest, 1 View CLINICAL HISTORY: Pulmonary edema. TECHNIQUE: Frontal view of the chest. COMPARISON: Chest radiograph 04/05/2023 FINDINGS: Lungs: Bilateral airspace opacities may represent pulmonary edema and/or atypical infection. Pleural space: Small bilateral pleural effusions. No pneumothorax. Heart: Cardiomegaly. Mediastinum: Unremarkable. Normal mediastinal contour. Bones/joints: Degenerative changes of the spine are noted. No acute fracture. IMPRESSION: 1. Bilateral airspace opacities may represent pulmonary edema and/or atypical infection. 2. Cardiomegaly. 3. Small bilateral pleural effusions. Electronically signed by: Tigist Rice MD 03/11/24 23:47 PM
[2024-03-11] MEDS: SODIUM BICARBONATE 8.4% 150 MEQ in DEXTROSE 5% 1,000 ML IV SCH (23:54)
[2024-03-12] MEDS: CALCIUM GLUCONATE 1,000 MG/60 ML BAG IV SCH (00:01)
[2024-03-12 04:24] LABS: Base Excess VBG -9.6 mEq/L; HCO3 VBG 18 mmol/L; Oxygen Saturation VBG < 60.0 %; PCO2 VBG 47 mmHg (38-50); PO2 VBG 32 mmHg
[2024-03-12 04:30] LABS: Basophils # (auto) 0.05 K/uL (0.00-0.20); Basophils % (auto) 0.5 %; Eosinophils # (auto) 0.08 K/uL (0.00-0.50); Eosinophils % (auto) 0.8 %; Hematocrit (blood only) 38.9 % (42.0-52.0); Hemoglobin 12.2 g/dl (14.0-18.0); Immature Granulocytes # (auto) 0.07 K/uL (0.01-0.20); Immature Granulocytes % (auto) 0.7 %; Lymphocytes # (auto) 1.67 K/uL (1.20-3.40); Lymphocytes % (auto) 16.4 %; Mean Corpuscular Hemoglobin 21.1 pg (25.0-34.0); Mean Corpuscular Hgb Conc 31.4 g/dL (32.0-36.0); Mean Corpuscular Volume 67.4 fL (80.0-100.0); Monocytes # (auto) 0.85 K/uL (0.11-0.59); Monocytes % (auto) 8.3 %; Neutrophils # (auto) 7.48 K/uL (1.40-6.50); Neutrophils % (auto) 73.3 %; RDW Coefficient of Variation 15.2 % (11.5-14.5); RDW Standard Deviation 35.7 fL (36.4-46.3); Red Blood Count 5.77 M/uL (4.70-6.10)
[2024-03-12] MEDS: PIPERACILLIN/TAZOBACTAM 4.5 GM/100 ML BAG IV SCH (05:05)
[2024-03-12 05:13] LABS: Mean Platelet Volume 11.1 fL (9.4-12.4); Microcytosis Present; Ovalocytes 1+; Platelet Count 244 K/uL (130-400); Tear Drop Cells 1+
[2024-03-12 06:04] LABS: BUN Creatinine Ratio 18.2 (10-20); Calcium 8.7 mg/dl (8.6-10.3); Creatinine Clr Calc Pharmacy 14.9 ml/min; Magnesium 2.3 mg/dl (1.7-2.4); Potassium 4.7 mmol/L (3.5-5.1)
--- NOTE | 2024-03-12 07:49 | Nephrology Consultation ---
Date of Consultation March 12, 2024 Assessment & Plan (1) Acute kidney injury: Non-oliguric. Volume status improving with aggressive hydration. Creatinine downtrending. Electrolytes normal. There is no immediate indication for CARGO MATE. Continue IVF to encourage positive fluid balance. Medications are appropriately dosed for kidney dysfunction. Continue to hold spironolactone and losartan. (2) Metabolic acidosis: IV NaHCO3 gtt infusing. (3) Acute perforated appendicitis: No immediate indication for surgical intervention. (4) Sepsis: Remains on Zosyn. Blood cultures NGTD. (5) Chronic kidney disease, stage III (moderate): CKD IIIb A1-2. 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 Atrophic right kidney. Follows with Dr. Walker. Baseline creatinine ~2.0 mg/dL. (6) Secondary hyperparathyroidism: Hold calcitriol. IV calcium has been provided this AM. (7) Prostate cancer: (8) Atrial fibrillation, permanent: History of Present Illness Reason for Consultation: ARF Requesting Physician: Radha Tovar MD Attending Physician: Radha Tovar MD History of Present Illness Erik Segovia is a 63-year-old male with chronic kidney disease IIIb A1-3. [place] [facility] [place]. Walker. Baseline creatinine ~2.0 mg/dL. Prior evaluation has demonstrated an atrophic right kidney with mild to moderate left cortical atrophy. Renal duplex did not demonstrate renal artery disease. Urine has been acellular. CKD is attributed to arterionephrosclerosis. CKD complicated by secondary hyperparathyroidism which has been managed with calcitriol. Medical history is notable for longstanding arterial hypertension, permanent atrial fibrillation, history of TIA/CVA, prostate cancer (under surveillance), venous insufficiency/LE varicosities, GIFFORD, RLS. Erik presented to urgent care yesterday and was subsequently referred to [facility] ER for evaluation of low blood pressure and abdominal pain. ROS notable for progressive weakness and fatigue. Erik described cramping abdominal discomfort, bloating, and nausea for approximately 2 weeks. Approximately 4 days ago, he developed diarrhea and increasing abdominal pain. CT scan demonstrated concern for locally perforated appendix. Antibiotic therapy with Zosyn has been provided. Erik has been aggressively fluid resuscitated. There is no immediate plan for surgical intervention. There is no obvious abscess to drain. Serum creatinine on admission was 8.18 mg/dL and 6.38 mg/dL this AM. Erik is non-oliguric. Allergies Allergy/AdvReac Type Severity Reaction Status Date / Time No Known Allergies Allergy Verified 03/11/24 18:46 Home Medications Medication Instructions Recorded Confirmed Type atorvastatin 80 mg tablet 80 mg PO DAILY #90 tabs 01/19/19 03/11/24 History metoprolol succinate 100 mg 100 mg PO DAILY 01/19/19 03/11/24 History tablet,extended release 24 hr gabapentin 300 mg capsule 300 - 600 mg PO DAILY PRN Pain #90 03/25/19 03/11/24 History caps losartan 100 mg tablet 100 mg PO DAILY 11/02/19 03/11/24 History allopurinol 300 mg tablet 300 mg PO DAILY 11/07/20 03/11/24 History rivaroxaban 15 mg tablet (Xarelto) 15 mg PO DAILY #30 tabs 05/24/22 03/11/24 Rx ascorbic acid (vitamin C) 500 mg 1,500 mg PO DAILY 12/19/22 03/11/24 History tablet (Vitamin C) multivitamin 1 tab PO DAILY 12/19/22 03/11/24 History finasteride 5 mg tablet 5 mg PO DAILY #90 tabs 10/16/23 03/11/24 Rx calcitriol 0.25 mcg capsule 0.25 mcg PO DAILY #90 caps 03/03/24 03/11/24 Rx diltiazem HCl 240 mg 240 mg PO DAILY #90 caps 03/03/24 03/11/24 Rx capsule,extended release 24 hr tamsulosin 0.4 mg capsule 0.4 mg PO BID #180 caps 03/03/24 03/11/24 Rx omeprazole 20 mg capsule,delayed 20 mg PO DAILY 03/11/24 03/11/24 History release spironolactone 25 mg tablet 25 mg PO DAILY 03/11/24 03/11/24 History Patient History Medical History Atrial fibrillation, persistent Hematospermia Gout Surgical History H/O oral surgery H/O adenoidectomy Family History Father Prostate cancer Mother Breast cancer Heart disorder Social History Smoking Status: Unknown if ever smoked Hx Alcohol Use: No Hx Substance Use: No Preferred Language: Tristanian Communication Ability: Effective Physical Science Aide Required: No Beliefs That Will Affect Care: None marital status: Single Current Living Situation: Alone current occupational status: employed Other Information That Helps Us Care for You: No Feels Safe at Home: Yes Safety Concerns: Feels Safe At This Time Assistive Devices: Glasses Review of Systems Review of Systems: All systems reviewed & are unremarkable except as noted in HPI & below Physical Exam Constitutional: well developed and + morbidly obese; no acute distress Eyes: + anicteric sclerae; no conjunctival abn ormality ENMT: Mouth: no oral mucosal abnormality and oral mucous membranes not dry Neck: normal visual inspection, trachea midline and + thick neck Respiratory: normal respiratory effort Auscultation: lungs clear to auscult ation bilaterally and + diminished lung sounds Cardiovascular: Rate/Rhythm: regular rate Heart Sounds: normal S1 and no rmal S2 Extremities: no edema Musculoskeletal: Extremities: no cyanosis and no clubbing Skin: normal turgor; no jaundice Neurologic: Motor/Sensory: no tremor and no asterixis Psychiatric: Orientation: alert and oriented x 3 Results & Data Vital Signs (Past 12 Hours) Vital Signs Temp Pulse Pulse Resp BP BP Pulse Ox 03/12/24 07:27 72 03/12/24 06:36 36.1 C L 77 18 96 03/12/24 06:00 36.1 C L 77 23 97 03/12/24 05:42 36.1 C L 76 23 95 03/12/24 05:06 36.1 C L 73 16 91 03/12/24 04:36 36.1 C L 75 15 97 03/12/24 04:03 36.0 C L 74 16 95 03/12/24 03:33 36.0 C L 79 17 96 03/12/24 03:17 95/66 L 03/12/24 03:17 95/66 L 03/12/24 03:03 36.0 C L 72 17 95 03/12/24 02:48 35.9 C L 73 15 95 03/12/24 02:14 36.5 C 70 16 108/77 98 03/12/24 02:00 108/77 03/12/24 01:54 35.9 C L 73 29 H 95 03/12/24 01:06 35.9 C L 69 18 97 03/12/24 01:00 110/72 03/12/24 01:00 110/72 03/12/24 00:42 35.9 C L 72 16 98 03/12/24 00:01 88/59 L 03/12/24 00:01 88/59 L 03/12/24 00:00 36.1 C L 70 17 87 L 03/12/24 00:00 71 03/11/24 23:30 36.1 C L 65 13 98 03/11/24 23:00 107/68 03/11/24 22:58 99/65 L 03/11/24 22:15 03/11/24 22:05 36.4 C L 65 19 104/63 96 03/11/24 21:45 90/67 L 03/11/24 21:39 70 21 97 03/11/24 21:31 90/60 L 03/11/24 21:30 66 20 96 03/11/24 21:15 63 16 96/61 L 98 03/11/24 21:00 94/61 L 03/11/24 20:57 66 19 96 03/11/24 20:57 65 03/11/24 20:45 93/62 L 03/11/24 20:30 84/59 L 03/11/24 20:30 84/59 L 03/11/24 20:15 61 22 85/59 L 95 03/11/24 20:14 88 L 03/11/24 20:00 65 17 85/55 L 90 03/11/24 19:48 69 17 86/52 L 93 O2 Del Method O2 Flow Rate 03/12/24 07:27 03/12/24 06:36 03/12/24 06:00 03/12/24 05:42 03/12/24 05:06 03/12/24 04:36 03/12/24 04:03 03/12/24 03:33 03/12/24 03:17 03/12/24 03:17 03/12/24 03:03 03/12/24 02:48 03/12/24 02:14 Nasal Cannula 2 03/12/24 02:00 03/12/24 01:54 03/12/24 01:06 03/12/24 01:00 03/12/24 01:00 03/12/24 00:42 03/12/24 00:01 03/12/24 00:01 03/12/24 00:00 03/12/24 00:00 03/11/24 23:30 03/11/24 23:00 03/11/24 22:58 03/11/24 22:15 Nasal Cannula 2 03/11/24 22:05 Room Air 03/11/24 21:45 03/11/24 21:39 03/11/24 21:31 03/11/24 21:30 03/11/24 21:15 Nasal Cannula 2 03/11/24 21:00 03/11/24 20:57 03/11/24 20:57 03/11/24 20:45 03/11/24 20:30 03/11/24 20:30 03/11/24 20:15 03/11/24 20:14 Room Air 03/11/24 20:00 03/11/24 19:48 Laboratory Results Laboratory Results - last 24 hr 03/11/24 03/11/24 03/11/24 17:00 18:11 22:08 WBC 12.51 H RBC 6.37 H Hgb 13.5 L Hct 43.1 MCV 67.7 L MCH 21.2 L MCHC 31.3 L RDW Std Deviation 35.9 L RDW Coeff of Aram 16.4 H Plt Count 288 MPV 11.7 Immature Gran % (Auto) 0.8 Neut % (Auto) 79.0 Lymph % (Auto) 12.6 Shoshone % (Auto) 6.7 Eos % (Auto) 0.6 Baso % (Auto) 0.3 Neut # (Auto) 9.87 H Lymph # (Auto) 1.58 Shoshone # (Auto) 0.84 H Eos # (Auto) 0.08 Baso # (Auto) 0.04 Immature Gran # (Auto) 0.10 Microcytosis Present Tear Drop Cells Ovalocytes VBG pH VBG pCO2 VBG pO2 VBG HCO3 VBG O2 Saturation VBG Base Excess Sodium 136 Potassium 4.9 Chloride 106 Carbon Dioxide 16 L Anion Gap 14 H BUN 130 H Creatinine 8.18 H* Est Cr Clr Drug Dosing 11.6 eGFR 6.88 BUN/Creatinine Ratio 15.9 Glucose 96 Lactate 1.0 Calcium 8.9 Magnesium Total Bilirubin 0.5 AST 18 ALT 28 Alkaline Phosphatase 73 Total Protein 7.4 Albumin 3.1 L Globulin 4.3 H Albumin/Globulin Ratio 0.7 L Lipase 352 H Procalcitonin 1.65 H Urine Color Urine Appearance Urine pH Ur Specific [place] Urine Protein Urine Glucose (UA) Urine Ketones Urine Blood Urine Nitrite Urine Bilirubin Urine Urobilinogen Ur Leukocyte Esterase Urine WBC (Auto) Urine RBC (Auto) U Hyaline Cast (Auto) U Epithel Cells (Auto) Urine Bacteria (Auto) Nasal Screen MRSA (PCR) Negative 03/11/24 03/11/24 03/12/24 22:20 Unknown 04:12 WBC 10.20 RBC 5.77 Hgb 12.2 L Hct 38.9 L MCV 67.4 L MCH 21.1 L MCHC 31.4 L RDW Std Deviation 35.7 L RDW Coeff of Aram 15.2 H Plt Count 244 MPV 11.1 Immature Gran % (Auto) 0.7 Neut % (Auto) 73.3 Lymph % (Auto) 16.4 [place]oshone % (Auto) 8.3 Eos % (Auto) 0.8 Baso % (Auto) 0.5 Neut # (Auto) 7.48 H Lymph # (Auto) 1.67 Shoshone # (Auto) 0.85 H Eos # (Auto) 0.08 Baso # (Auto) 0.05 Immature Gran # (Auto) 0.07 Microcytosis Present Tear Drop Cells 1+ Ovalocytes 1+ VBG pH 7.21 L 7.20 L VBG pCO2 41 47 VBG pO2 33 32 VBG HCO3 16 18 VBG O2 Saturation < 60.0 < 60.0 VBG Base Excess -11.0 -9.6 Sodium 139 140 Potassium 5.1 4.7 Chloride 112 H 113 H Carbon Dioxide 16 L 17 L Anion Gap 11 10 BUN 124 H 116 H Creatinine 7.32 H* D 6.38 H* D Est Cr Clr Drug Dosing 13.0 14.9 eGFR 7.86 9.27 BUN/Creatinine Ratio 16.9 18.2 Glucose 88 92 Lactate Calcium 8.0 L 8.7 Magnesium 2.3 Total Bilirubin AST ALT Alkaline Phosphatase Total Protein Albumin Globulin Albumin/Globulin Ratio Lipase Procalcitonin Urine Color Yellow Urine Appearance Clear Urine pH 5.0 Ur Specific [place] 1.014 Urine Protein Trace H Urine Glucose (UA) Negative Urine Ketones Negative Urine Blood 1+ H Urine Nitrite Negative Urine Bilirubin Negative Urine Urobilinogen Negative Ur Leukocyte Esterase Negative Urine WBC (Auto) 0-5 Urine RBC (Auto) 11-20 H U Hyaline Cast (Auto) 11-20 H U Epithel Cells (Auto) 0-2 Urine Bacteria (Auto) None Seen Nasal Screen MRSA (PCR) Diagnostic Findings CT Abdomen and Pelvis Without Intravenous Contrast COMPARISON: Limited comparison made to CT chest which includes the upper abdomen 06/04/2023 FINDINGS: Lung bases: No abnormality noted. Pleural space: No visualized pleural effusion or pneumothorax. Heart: Cardiomegaly. Mediastinum: No abnormality noted. ABDOMEN: Liver: Lack of intravenous contrast limits detection of some masses. No abnormality noted. Gallbladder and bile ducts: No calcified stones or surrounding fluid. Pancreas: No pancreatic mass, calcification, inflammation or ductal dilation noted. Spleen: No significant abnormality noted. Adrenals: Stable 2.8 x 2.6 cm right adrenal adenoma. No further assessment required. The left appears normal. Kidneys and ureters: Atrophic scarred right kidney. There is mild cortical scarring left kidney. Simple left renal cyst/s. No simple cyst follow-up necessary. Right kidney appears normal. No renal stone, hydronephrosis or perinephric fluid. Stomach and bowel: There is no intestinal obstruction. There is mild edema of the proximal ascending colon. No pneumatosis. The terminal ileum is identified and appears normal. PELVIS: Appendix: In the right lower quadrant centered over the expected location of the appendix are multiple pockets of extraluminal fluid and gas and generalized inflammation. The process and total measures approximately 10.4 cm long by 5.4 cm transverse by 4.4 cm AP with inflammation extending to involve the mid a ascending colon. Bladder: Appears normal for the degree of filling. No stones or inflammation. No large mass. Masses may not be detected in the absence of opacification. Reproductive: No abnormalities noted. ABDOMEN and PELVIS: Intraperitoneal space: No free air. No significant fluid collection. Bones/joints: Degenerative changes noted in the scoliotic spine. No acute osseous abnormality noted. Soft tissues: Umbilical hernia containing fat. Vasculature: No abdominal aortic aneurysm. Lymph nodes: No pathologically enlarged lymph nodes. IMPRESSION: 1. There is a moderate phlegmonous process in the right lower quadrant centered at the expected location of the appendix with multiple small air-fluid levels and free mesenteric gas. Findings most consistent with locally perforated appendicitis. There is no organized or drainable collection. 2. Atrophic right kidney and scarred left kidney. PG Care Time/CCT Total # of Minutes Spent Total Time Spent with Patient: Total time spent is greater than 50% in coordination of care (as documented) at patient's floor/unit and/or counseling patient: Coding Level of Care Code 37202 IN/OBS CONSULT LVL 4,60M Diagnoses Acute kidney injury N17.9 Metabolic acidosis E87.20 Acute perforated appendicitis K35.32 Sepsis A41.9 Chronic kidney disease, stage III (moderate) N18.3 Secondary hyperparathyroidism N25.81 Prostate cancer C61 Atrial fibrillation, permanent I48.21
[2024-03-12] MEDS: PANTOprazole 40 MG/10 ML SYR IV SCH (08:34)
--- OUTSIDE RECORDS SUMMARY | 2024-03-12 11:28 | External Medical Summary | Continuity of Care Document ---
Author Name Unknown Organization [facility] [id number] [place] [address] [address] [place] [address] [phone] Care Team Providers Care Java Web User Interface Developer Name Role Phone Diann Berrios Primary Care Physician [phone] Encounter [facility] [id number] Date(s): 02/05/24 - 02/05/24 [facility] [address] [place] [address] 207 [facility] [address] [facility] [address] [place] [address] [phone] Encounter Diagnosis A-fib(Discharge Diagnosis) - 02/05/24 Need for hepatitis B screening test(Discharge Diagnosis) - 02/05/24 GERD (gastroesophageal reflux disease)(Discharge Diagnosis) - 02/05/24 Cerebrovascular accident (CVA)(Discharge Diagnosis) - 02/05/24 Hypertensive chronic kidney disease(Discharge Diagnosis) - 02/05/24 Morbid obesity(Discharge Diagnosis) - 02/05/24 Hyperlipidemia(Discharge Diagnosis) - 02/05/24 Prostate cancer(Discharge Diagnosis) - 02/05/24 Gout(Discharge Diagnosis) - 02/05/24 Colon cancer screening(Discharge Diagnosis) - 02/05/24 Discharge Disposition: Home or Self Care Attending Physician: MD Berrios Dongsheng Allergies, Adverse Reactions, Alerts No Known Allergies Assessment and Plan Extracted from: Title:Office Visit Note Author:MD Berrios Dongsh eng Date:02/05/24 1.GERD (gastroesophageal r eflux disease) STATUS: Chronic stable: x Chronic uncontrolled: Acute uncomplicated: Acute illness with systemic symptoms: Undiagnosed new problems with uncertain prognosis: Chronic illnesses with exacerbation, progression, or side effects of treatment: 1 acute complicated injury: DATA: Review of prior external note(s) from each unique source: Review of the result(s) of each unique test: Ordering of each unique test: Assessment requiring independent historian(s): GOAL: Resolution PLAN: cut down omeprazole to 20mg. diet modification. ordered B12, mag, vit D, cmp 2.A-fib STATUS: Chronic stable: x Chronic uncontrolled: Acute uncomplicated: Acute illness with systemic symptoms: Undiagnosed new problems with uncertain prognosis: Chronic illnesses with exacerbation, progression, or side effects of treatment: 1 acute complicated injury: DATA: Review of prior external note(s) from each unique source: Review of the result(s) of each unique test: x cbc, cmp Ordering of each unique test: Assessment requiring independent historian(s): GOAL: Maintain stability PLAN: f/u cardiology. continue meds. Nondrinker. Avoid NSAIDs.check cbc,cmp 3.Cerebrovascular accident (CVA) STATUS: Chronic since 2017, stable DATA: Reviewed labs cbc GOAL: prevention PLAN: f/u neurology. continue Tx. ordered cbc 4.Hypertensive chronic kidney disease STATUS: Chronic uncontrolled: x BP is high Chronic uncontrolled: Acute uncomplicated: Acute illness with systemic symptoms: Undiagnosed new problems with uncertain prognosis: Chronic illnesses with exacerbation, progression, or side effects of treatment: 1 acute complicated injury: DATA: Review of prior external note(s) from each unique source: Review of the result(s) of each unique test: x CMP Ordering of each unique test: x Assessment requiring independent historian(s): GOAL: bp<140/90but avoidlowBP PLAN: continuemeds. restartspironolactone but every other day. f/u neph. DASH and exercise and wt loss.declined sleep study. Home BP QID advisedagain and send me a message in 2-4 days.Willbring home machine to next visit - did not bring in today, again. ordered cmp,cbc,PTH, vitD 5.Morbid obesity STATUS: Chronic stable: Chronic uncontrolled: x Acute uncomplicated: Acute illness with systemic symptoms: Undiagnosed new problems with uncertain prognosis: Chronic illnesses with exacerbation, progression, or side effects of treatment: 1 acute complicated injury: DATA: Review of prior external note(s) from each unique source: Review of the result(s) of each unique test: tsh Ordering of each unique test: Assessment requiring independent historian(s): GOAL: 5%loss PLAN: diet and exercise. declined GLP1 and other po meds and referral to bariatric surgery/nutrition. ordered TSH 6.Prostate cancer STATUS: Chronic stable: Chronic uncontrolled: x Acute uncomplicated: Acute illness with systemic symptoms: Undiagnosed new problems with uncertain prognosis: Chronic illnesses with exacerbation, progression, or side effects of treatment: 1 acute complicated injury: DATA: Review of prior external note(s) from each unique source: Review of the result(s) of each unique test:x psa Ordering of each unique test: Assessment requiring independent historian(s): GOAL: Resolution PLAN: f/u urology. ordered psa 7.Gout STATUS: Chronic stable: x Chronic uncontrolled: Acute uncomplicated: Acute illness with systemic symptoms: Undiagnosed new problems with uncertain prognosis: Chronic illnesses with exacerbation, progression, or side effects of treatment: 1 acute complicated injury: DATA: Review of prior external note(s) from each unique source: Review of the result(s) of each unique test: UA Ordering of each unique test: x Assessment requiring independent historian(s): GOAL: Resolution or uric acid<5.5 PLAN: continue allopurinol. WT loss. ordered uric acid 8.Hyperlipidemia STATUS: Chronic stable: x Chronic uncontrolled: Acute uncomplicated: Acute illness with systemic symptoms: Undiagnosed new problems with uncertain prognosis: Chronic illnesses with exacerbation, progression, or side effects of treatment: 1 acute complicated injury: DATA: Review of prior external note(s) from each unique source: Review of the result(s) of each unique test: flp Ordering of each unique test: x Assessment requiring independent historian(s): GOAL: LDL<70 PLAN: continue statin. ordered flp and cmp 9.Need for hepatitis B screening test ordered lab sets. 10.Colon cancer screening last colonoscopy over 10 yrs ago. ordered colonoscopy flu today. Rx sent for RSV, shingrix,prevnar 20. call prn, f/u4 mos Time spent: Pre-visit planning/chart review: 6 minutes Ldhr-[id number] visit: 36 minutes Post-visit documentation: minutes Care coordination: minutes Time spent on disease management/counseling in addition to CPE/AWV/WCC: minutes Total visit time: 42 minutes Immunizations Given and Recorded Vaccine Date Status Refusal Reason influenza virus vaccine, inactivated 02/05/24 Give n influenza virus vaccine, inactivated 01/23/23 Give n influenza virus vaccine, inactivated 12/30/15 Give n influenza virus vaccine, inactivated 02/22/15 Give n influenza virus vaccine, inactivated 01/29/13 Give n influenza virus vaccine, inactivated 03/27/12 Give n influenza virus vaccine, inactivated 03/19/11 Give n SARS COVID Vaccine Unspecified 04/24/23 Recorded tetanus/diphtheria/pertuss, acel (Tdap) 04/06/23 R ecorded tetanus/diphtheria/pertuss, acel (Tdap) 10/08/06 R ecorded SARS-CoV-2 mRNA (MongoDB 12+) bivalent 01/24/22 Rec orded Medications Abrysvo preservative-free intramuscular injection Start: 02/05/24 1:13:00 PM EDT, 0.5 mL, IM, ONCE, Disp# 0.5 mL, Note to Pharmacy: RSV vaccine, Pharmacy: [facility]/pharmacy #[id number] Start Date: 02/05/24 Status: Ordered allopurinol 300 mg oral tablet Start: 07/22/23 12:47:00 PM EDT, 1 tab, PO, Daily, Disp# 30 tab, Refills: 11, Pharmacy: [facility] [id number] Start Date: 07/22/23 Status: Ordered atorvastatin 80 mg oral tablet Start: 08/19/23 8:16:00 AM EDT, 1 tab, PO, Daily, Disp# 90 tab, Refills: 1, Pharmacy: [facility] [id number] Start Date: 08/19/23 Status: Ordered calcitriol 0.25 mcg oral capsule Start: 04/11/22 2:10:00 PM EST, 1 cap, PO, Daily Start Date: 04/11/22 Status: Ordered dilTIAZem 240 mg/24 hours oral tablet, extended release Start: 04/17/22 4:39:00 PM EST, 1 tab, PO, Daily, Disp# 90 tab, Refills: 1, Pharmacy: [facility]/pharmacy #[id number] Start Date: 04/17/22 Stop Date: 10/14/22 Status: Ordered finasteride 5 mg oral tablet Start: 06/26/23 8:39:00 AM EDT, 1 tab, PO, Daily, Disp# 30 tab, Refills: 5, Pharmacy: [facility] [id number] Start Date: 06/26/23 Status: Ordered fluticasone 50 mcg/inh nasal spray Start: 08/19/23 1:11:00 PM EDT, 2 spray, intranasal, Daily, Disp# 16 g, PRN: as needed for allergy symptoms, Pharmacy: [facility]/pharmacy #[id number] Start Date: 08/19/23 Status: Ordered gabapentin 300 mg oral capsule Start: 06/10/23 4:10:00 PM EST, 1 cap, PO, Daily, Disp# 30 cap, Refills: 11, Pharmacy: [facility] [id number] Start Date: 06/10/23 Status: Ordered hyoscyamine 0.375 mg oral tablet, extended release Start: 04/11/22 2:29:00 PM EST, 1 tab, PO, Daily, Disp# 30 tab, Refills: 1, [id number] Start Date: 04/11/22 Stop Date: 06/10/22 Status: Ordered ketoconazole 2% topical cream Start: 01/22/24 2:26:00 PM EDT, 1 appl, topical, Daily, Disp# 60 g, Refills: 2, Apply to both feet once per day, [id number] Start Date: 01/22/24 Stop Date: 07/20/24 Status: Ordered losartan 100 mg oral tablet Start: 08/05/23 8:38:00 AM EDT, 1 tab, PO, Daily, Disp# 90 tab, Refills: 3, Pharmacy: [facility] [id number] Start Date: 08/05/23 Status: Ordered Metoprolol Succinate ER 100 mg oral tablet, extended release Start: 08/05/23 8:38:00 AM EDT, 1 tab, PO, Daily, Disp# 90 tab, Refills: 3, Pharmacy: [facility] [id number] Start Date: 08/05/23 Status: Ordered omeprazole 20 mg oral delayed release capsule Start: 02/05/24 1:47:00 PM EDT, 1 cap, PO, Daily, Disp# 30 cap, Refills: 2, [id number] Start Date: 02/05/24 Stop Date: 05/05/24 Status: Ordered Prevnar 20 intramuscular suspension Start: 02/05/24 1:13:00 PM EDT, 0.5 mL, IM, ONCE, Disp# 0.5 mL, [id number] Start Date: 02/05/24 Status: Ordered Shingrix intramuscular injection Start: 02/05/24 1:13:00 PM EDT, 0.5 mL, IM, ONCE, Disp# 1 each, Refills: 1, repeat dose in 2 to 6 months, [id number] Start Date: 02/05/24 Status: Ordered spironolactone 25 mg oral tablet Start: 02/05/24 1:32:00 PM EDT, See Instructions, Disp# 15 tab, Refills: 3, 1 tab PO every other day, [id number] Start Date: 02/05/24 Status: Ordered tamsulosin 0.4 mg oral capsule Start: 09/02/23 3:45:00 PM EDT, 2 cap, PO, Daily, Disp# 180 cap, Refills: 3, 30 minutes after the same meal, [id number] Start Date: 09/02/23 Stop Date: 08/27/24 Status: Ordered Vitamin C Start: 04/11/22 2:15:00 PM EST Start Date: 04/11/22 Status: Ordered Xarelto 15 mg oral tablet Start: 04/11/22 2:15:00 PM EST, 1 tab, PO, qPM Start Date: 04/11/22 Status: Ordered Mental Status 02/05/24 Barriers to Learning one year None evide nt Mandatory Health Literacy Documentation Yes Health Literacy Communication Barriers N ever Primary Language Jordanian Problem List Condition Confirmation Course Effective Dates Status Health Status Informant ALLERGIC RHINITIS Confirmed Active A-fib Confirmed Active Beta Thalassemia Confirmed Active Cerebrovascular accident (CVA) 1 Confirmed Active Change in nail appearance Confirmed Active Hypertensive chronic kidney disease Confirmed Active Chronic Kidney Disease, Unspecified Confirmed Active Throat clearing Confirmed Active Saphenofemoral venous reflux Confirmed Active GERD (gastroesophageal reflux disease) Confirmed Active Body aches Confirmed Active Gout Confirmed Active Leg heaviness Confirmed Active Hematospermia Confirmed Active HTN - Hypertension Confirmed Active Hyperlipidemia Confirmed Active IRON DEFICIENCY ANEMIA, UNSPECIFIED Confirmed Active LVH (left ventricular hypertrophy) Confirmed Active Blood thinned due to long-term anticoagulant use Confirmed Active Lung nodule Confirmed Active Prostate cancer Confirmed Active Morbid obesity Confirmed Active Pulmonary nodule Confirmed Active Tinea unguium Confirmed Active Numbness and tingling in both hands Confirmed Active Peripheral vascular disease Confirmed Active Chronic venous insufficiency Confirmed Active Restless legs syndrome (RLS) Confirmed Active Secondary hyperparathyroidism Confirmed Active Snores Confirmed Active Tinnitus Confirmed Active Venous reflux 2 Confirmed Active Vitamin D deficiency Confirmed Active Weight disorder Confirmed Active 1occured November 2016 2B/L Diagnosis Diagnosis Type Effective Dates Health Status Clinical Service Informant A-fib Discharge Diagnosis 02/05/24 Non-Specified Need for hepatitis B screening test Discharge Diagnosis 02/05/24 Non-Specified GERD (gastroesophageal reflux disease) Discharge Diagnosis 02/05/24 Non-Specified Cerebrovascular accident (CVA) Discharge Diagnosis 02/05/24 Non-Specified Hypertensive chronic kidney disease Discharge Diagnosis 02/05/24 Non-Specified Morbid obesity Discharge Diagnosis 02/05/24 Non-Specified Hyperlipidemia Discharge Diagnosis 02/05/24 Non-Specified Prostate cancer Discharge Diagnosis 02/05/24 Non-Specified Gout Discharge Diagnosis 02/05/24 Non-Specified Colon cancer screening Discharge Diagnosis 02/05/24 Non-Specified Procedures Procedure Date Related Diagnosis Body Site Status Chest x-ray 1 07/16/22 Completed Shoulder X-ray 2 09/23/15 Complete d Eye examination 3 08/25/15 Complet ed Transthoracic echocardiography 4 10/06/14 Completed Chest x-ray 5 09/24/[address] of abdomen and pelvis 6 09/24/13 Completed tooth removal 04/15/99 Completed adnoidectomy Completed nasal polyps Completed 1Impression: No acute cardiopulmonary findings. Stable cardiomegaly 2Negative study 3right eye; healthy Macula. Left eye; Healthy macula Cateracts are mild and have minimal impact on vision 4mild concentric left ventricular hypertrophy 5Crowded pulmonary markings probably due to poor inspiration and body habitus. Subtle zones of bibasilar acelectasis. 61. No urinary calculi or hydronephrosis. Multifocal scarring of the right kidney, chronic. 2. Marked fatty infiltration of liver. Two echogenic right hepatic lobe lesions indeterminate although at least one shown on prior US of 05/04/09. Low suspicion. 3. Normal appendix. Vital Signs Most recent to oldest [Reference Range]: 1 Height 172.5 cm (02/05/24 1:02 PM) Patient Weight 122.5 kg (02/05/24 1:02 PM) Body Mass Index 41.17 kg/m2 (02/05/24 1:02 PM) Heart Rate 87 bpm (02/05/24 1:02 PM) Respiratory Rate 12 br/min (02/05/24 1:02 PM) Blood Pressure 154/98mmHg (02/05/24 1:02 PM) Cuff Pulse Pressure 56 mmHg (02/05/24 1:02 PM) Social History Social History Type Response Smoking Status Never smoked cigaret andre Sex Male Sex Representation Male (finding) [facility] Outpt Note * MD Yash, Diann: PERFORM Event Display: [facility] Outpt Note Authored Date: [id number] Chief Complaint 3 month F/U c/o low back pain History of Present Illness HTN: on meds.no home bp check. no dizzy. HLD: on statin. no muscle aches. CVA: on meds. stable a fib: on meds. stable low back pain: last Sat. lasted for 2 days. almost all gone. Gout: on med. no recurrence. mild SOB with stairs. Doing little exercise. had nose bleed last night: he picked note. small amount. GERD: on med. stable Review of Systems No fever/chills. No headache. No respiratory symptoms. No chest pain. No nausea/vomiting. No abdominal pain. No change with bowels. No urinary symptoms. No rash. No bleeding. No joint pain. No anxiety/depression. Other systems reviewed and are neg. Physical Exam Vitals & Measurements HR:87(Monitored) RR:12 BP:154/98 SpO2:95% HT:172.5cm WT:122.500kg(Dosing) WT:122.5kg BMI:41.17 PHQ2 Data(Data Documented on:02/05/2024 13:02) Emotional health assessment NEGATIVE General: No acute distress. Nontoxic. Head:Normocephalic, Atraumatic. Neck:Supple, Non-tender, No thyromegaly Respiratory:Lungs are clear to auscultation, Respirations non-labored, Breath sounds equal GENE. Cardiovascular:Normal rate, irregular rhythm, No murmur, Rubs, gallops. Gastrointestinal:Soft, Non-tender, Non-distended, Normal bowel sounds. Musculoskeletal:tracepitting edema Neurologic:Alert, Oriented, No focal deficits. Psychiatric:Cooperative, Appropriate mood & affect. Assessment/Plan 1.GERD (gastroesophageal reflux disease) STATUS: Chronic stable: x Chronic uncontrolled: Acute uncomplicated: Acute illness with systemic symptoms: Undiagnosed new problems with uncertain prognosis: Chronic illnesses with exacerbation, progression, or side effects of treatment: 1 acute complicated injury: DATA: Review of prior external note(s) from each unique source: Review of the result(s) of each unique test: Ordering of each unique test: Assessment requiring independent historian(s): GOAL: Resolution PLAN: cut down omeprazole to 20mg. diet modification. ordered B12, mag, vit D, cmp 2.A-fib STATUS: Chronic stable: x Chronic uncontrolled: Acute uncomplicated: Acute illness with systemic symptoms: Undiagnosed new problems with uncertain prognosis: Chronic illnesses with exacerbation, progression, or side effects of treatment: 1 acute complicated injury: DATA: Review of prior external note(s) from each unique source: Review of the result(s) of each unique test: x cbc, cmp Ordering of each unique test: Assessment requiring independent historian(s): GOAL: Maintain stability PLAN: f/u cardiology. continue meds. Nondrinker. Avoid NSAIDs.check cbc,cmp 3.Cerebrovascular accident (CVA) STATUS: Chronic since 2017, stable DATA: Reviewed labs cbc GOAL: prevention PLAN: f/u neurology. continue Tx.ordered cbc 4.Hypertensive chronic kidney disease STATUS: Chronic uncontrolled: x BP is high Chronic uncontrolled: Acute uncomplicated: Acute illness with systemic symptoms: Undiagnosed new problems with uncertain prognosis: Chronic illnesses with exacerbation, progression, or side effects of treatment: 1 acute complicated injury: DATA: Review of prior external note(s) from each unique source: Review of the result(s) of each unique test: x CMP Ordering of each unique test: x Assessment requiring independent historian(s): GOAL: bp<140/90but avoidlowBP PLAN: continuemeds. restartspironolactone but every other day. f/u neph. DASH and exercise and wt loss.declined sleep study. Home BP QID advisedagain and send me a message in 2-4 days.Willbring home machine to next visit - did not bring in today, again. ordered cmp,cbc,PTH, vitD 5.Morbid obesity STATUS: Chronic stable: Chronic uncontrolled: x Acute uncomplicated: Acute illness with systemic symptoms: Undiagnosed new problems with uncertain prognosis: Chronic illnesses with exacerbation, progression, or side effects of treatment: 1 acute complicated injury: DATA: Review of prior external note(s) from each unique source: Review of the result(s) of each unique test: tsh Ordering of each unique test: Assessment requiring independent historian(s): GOAL: 5%loss PLAN: diet and exercise. declined GLP1 and other po meds and referral to bariatric surgery/nutrition.ordered TSH 6.Prostate cancer STATUS: Chronic stable: Chronic uncontrolled: x Acute uncomplicated: Acute illness with systemic symptoms: Undiagnosed new problems with uncertain prognosis: Chronic illnesses with exacerbation, progression, or side effects of treatment: 1 acute complicated injury: DATA: Review of prior external note(s) from each unique source: Review of the result(s) of each unique test:x psa Ordering of each unique test: Assessment requiring independent historian(s): GOAL: Resolution PLAN: f/u urology. ordered psa 7.Gout STATUS: Chronic stable: x Chronic uncontrolled: Acute uncomplicated: Acute illness with systemic symptoms: Undiagnosed new problems with uncertain prognosis: Chronic illnesses with exacerbation, progression, or side effects of treatment: 1 acute complicated injury: DATA: Review of prior external note(s) from each unique source: Review of the result(s) of each unique test: UA Ordering of each unique test: x Assessment requiring independent historian(s): GOAL: Resolution or uric acid<5.5 PLAN: continue allopurinol. WT loss. ordered uric acid 8.Hyperlipidemia STATUS: Chronic stable: x Chronic uncontrolled: Acute uncomplicated: Acute illness with systemic symptoms: Undiagnosed new problems with uncertain prognosis: Chronic illnesses with exacerbation, progression, or side effects of treatment: 1 acute complicated injury: DATA: Review of prior external note(s) from each unique source: Review of the result(s) of each unique test: flp Ordering of each unique test: x Assessment requiring independent historian(s): GOAL: LDL<70 PLAN: continue statin. ordered flp and cmp 9.Need for hepatitis B screening test ordered lab sets. 10.Colon cancer screening last colonoscopy over 10 yrs ago. ordered colonoscopy flu today. Rx sent for RSV, shingrix,prevnar 20. call prn, f/u4 mos Time spent: Pre-visit planning/chart review: 6 minutes Gusy-[id number] visit: 36 minutes Post-visit documentation: minutes Care coordination: minutes Time spent on disease management/counseling in addition to CPE/AWV/WCC: minutes Total visit time: 42 minutes Problem List/Past Medical History Ongoing A-fib ALLERGIC RHINITIS Beta Thalassemia Blood thinned due to long-term anticoagulant use Body aches Cerebrovascular accident (CVA) Change in nail appearance Chronic Kidney Disease, Unspecified Chronic venous insufficiency GERD (gastroesophageal reflux disease) Gout Hematospermia HTN - Hypertension Hyperlipidemia Hypertensive chronic kidney disease IRON DEFICIENCY ANEMIA, UNSPECIFIED Leg heaviness Lung nodule LVH (left ventricular hypertrophy) Morbid obesity Numbness and tingling in both hands Peripheral vascular disease Prostate cancer Pulmonary nodule Restless legs syndrome (RLS) Saphenofemoral venous reflux Secondary hyperparathyroidism Snores Throat clearing Tinea unguium Tinnitus Venous reflux Vitamin D deficiency Weight disorder Resolved DEPRESSION Procedure/Surgical History Chest x-ray| Service Date: 07/16/2022Shoulder X-ray| Service Date: 09/23/2015Eye examination| Service Date: 08/25/2015Transthoracic echocardiography| Service Date: 10/06/2014Chest x-ray| Service Date: 09/24/2013CT of abdomen and pelvis| Service Date: 09/24/2013tooth removal| Service Date: 04/15/1999nasal polypsadnoidectomy Medications allopurinol(allopurinol 300 mg oral tablet), 1 tab, PO, Daily ascorbic acid(Vitamin C) atorvastatin(atorvastatin 80 mg oral tablet), 1 tab, PO, Daily calcitriol(calcitriol 0.25 mcg oral capsule), 0.25 mcg= 1 cap, PO, Daily dilTIAZem(dilTIAZem 240 mg/24 hours oral tablet, extended release), 240 mg= 1 tab, PO, Daily, 1 refills finasteride(finasteride 5 mg oral tablet), 1 tab, PO, Daily fluticasone nasal(fluticasone 50 mcg/inh nasal spray), 2 spray, intranasal, Daily, PRN gabapentin(gabapentin 300 mg oral capsule), 1 cap, PO, Daily hyoscyamine(hyoscyamine 0.375 mg oral tablet, extended release), 0.375 mg= 1 tab, PO, Daily, 1 refills influenza virus vaccine, inactivated(influenza virus vaccine, inactivated preservative-free TRIvalent IM inj), 0.5 mL, IM, ONCE ketoconazole topical(ketoconazole 2% topical cream), 1 appl, topical, Daily, 2 refills losartan(losartan 100 mg oral tablet), 1 tab, PO, Daily metoprolol(Metoprolol Succinate ER 100 mg oral tablet, extended release), 1 tab, PO, Daily omeprazole(omeprazole 20 mg oral delayed release capsule), 20 mg= 1 cap, PO, Daily, 2 refills pneumococcal 20-valent conjugate vaccine(Prevnar 20 intramuscular suspension), 0.5 mL, IM, ONCE rivaroxaban(Xarelto 15 mg oral tablet), 15 mg= 1 tab, PO, qPM RSV vaccine, preF A-preF B, recombinant(Abrysvo preservative-free intramuscular injection), 0.5 mL,IM, ONCE spironolactone(spironolactone 25 mg oral tablet), See Instructions, 3 refills tamsulosin(tamsulosin 0.4 mg oral capsule), 0.8 mg= 2 cap, PO, Daily, 3 refills zoster vaccine, inactivated(Shingrix intramuscular injection), 0.5 mL, IM, ONCE, 1 refills Allergies NKA Social History Smoking Status Never smoked cigarettes Sexual - High Risk Self described orientation:Homosexual Tobacco - No Risk Family History Breast cancer: Mother. High Blood Pressure: Mother. Prostate cancer..: Father. Health Status Family Member(s) Immunizations Vaccine Date Status SARS COVID Vaccine Unspecified 04/24/2023 Recorded tetanus/diphtheria/pertuss, acel (Tdap) 04/06/2023 Recorded influenza virus vaccine, inactivated 01/23/2023 Given SARS-CoV-2 mRNA (Pfizer 12+) bivalent 01/24/2022 Recorded influenza virus vaccine, inactivated 12/30/2015 Given influenza virus vaccine, inactivated 02/22/2015 Given influenza virus vaccine, inactivated 01/29/2013 Given influenza virus vaccine, inactivated 03/27/2012 Given influenza virus vaccine, inactivated 03/19/2011 Given tetanus/diphtheria/pertuss, acel (Tdap) 10/08/2006 Recorded Recommendations Health Maintenance Pending(in the next year) OverDue Adult Influenza Vaccine due10/13/23and every 1year Due Adult COVID-19 Vaccination due02/05/24Unknown Frequency Adult Social Determinants of Health Screening due02/05/24Unknown Frequency Colorectal Cancer Screening due02/05/24Unknown Frequency Pneumococcal Vaccine Adults and Adolescents with Chronic Illness due02/05/24One-time only Shingles Vaccine due02/05/24One-time only Satisfied(in the past 1 year) Satisfied Adult Tdap/Td Vaccine on04/06/23.Satisfied by LIZETTE Dinero Vanessa T Body Mass Index on02/05/24.Satisfied by LIZETTE Higuera Paul Lipid Screening on05/20/23.Satisfied by Contributor_system, [employer] Electronic Signature on File Electronically Reviewed/Signed by: Diann Berrios MD Author Signature Dt/Tm:02/05/2024 01:50 PM Department of Family Medicine DJ Patient Care team information Care Team Personnel Name: MD Yash, Diann Position: Physician - Family Med Member Role: Primary Care Provider Address: [address] [facility] [address] Name: BAILEY Moore Lynn Position: Physician Dog Food Dough Mixer Exempt - Vasc Surg Member Role: Lifetime Relationship Address: [address] [facility] [address] [place] [address] [place] Name: MD Hernandez Juan Position: Physician - Family Med Member Role: Lifetime Relationship Address: [address] [place] [address] [place]"
--- OUTSIDE RECORDS SUMMARY | 2024-03-12 11:28 | External Medical Summary | Continuity of Care Document ---
Author Name Unknown Organization [place] [id number] Address [address] [place] [phone] Care Team Providers Care Potato Inspector Name Role Phone Diann Berrios Primary Care Physician [phone] [id number] Date(s): 01/22/24 - 01/22/24 [facility] [address] [place] [id number] [facility] Medicine [address] [place] [id number] Encounter Diagnosis Blood thinned due to long-term anticoagulant use(Discharge Diagnosis) - 01/22/24 Tinea unguium(Discharge Diagnosis) - 01/22/24 Tinea pedis of both feet(Discharge Diagnosis) - 01/22/24 Discharge Disposition: Home or Self Care Attending Physician: VIN Albert Christina L Allergies, Adverse Reactions, Alerts No Known Allergies Assessment and Plan Extracted from: Title:Follow Up Visit Author:VIN Albert, Wilner Michael Date:01/22/24 1.Blood thinned due to long-term anticoagulant use 2.Tinea unguium -Patient unable to provide self care to toenails due touse of anticoagulation medication - verbal consent obtained for debridement -Recommend toenail debridement -Patient had toenails of bilateral digits 1-5 debrided using nail nippers to tolerance, no bleeding noted -Patient instructed to use emery board to nails once per week -Patient had no ingrown toenails or infection noted -Patient is to follow up in6 months for treatment if needed in the future Addendum by VIN Albert Christina L on January 22, 2024 14:26:06 EDT Bilateral tinea pedis bilateral feet, patient prescribed topical ketoconazole to apply once per day. Immunizations Given and Recorded Vaccine Date Status Refusal Reason SARS COVID Vaccine Unspecified 04/24/23 Recorded tetanus/diphtheria/pertuss, acel (Tdap) 04/06/23 R ecorded tetanus/diphtheria/pertuss, acel (Tdap) 10/08/06 R ecorded influenza virus vaccine, inactivated 01/23/23 Give n influenza virus vaccine, inactivated 12/30/15 Give n influenza virus vaccine, inactivated 02/22/15 Give n influenza virus vaccine, inactivated 01/29/13 Give n influenza virus vaccine, inactivated 03/27/12 Give n influenza virus vaccine, inactivated 03/19/11 Give n Medications allopurinol 300 mg oral tablet Start: 07/22/23 12:47:00 PM EDT, 1 tab, PO, Daily, Disp# 30 tab, Refills: 11, Pharmacy: [id number] Start Date: 07/22/23 Status: Ordered atorvastatin 80 mg oral tablet Start: 08/19/23 8:16:00 AM EDT, 1 tab, PO, Daily, Disp# 90 tab, Refills: 1, Pharmacy: [email or web address] Start Date: 08/19/23 Status: Ordered calcitriol 0.25 mcg oral capsule Start: 04/11/22 2:10:00 PM EST, 1 cap, PO, Daily Start Date: 04/11/22 Status: Ordered dilTIAZem 240 mg/24 hours oral tablet, extended release Start: 04/17/22 4:39:00 PM EST, 1 tab, PO, Daily, Disp# 90 tab, Refills: 1, Pharmacy: [facility]/pharmacy #[id number] Start Date: 04/17/22 Stop Date: 10/14/22 Status: Ordered finasteride 5 mg oral tablet Start: 06/26/23 8:39:00 AM EDT, 1 tab, PO, Daily, Disp# 30 tab, Refills: 5, Pharmacy: [id number] Start Date: 06/26/23 Status: Ordered fluticasone 50 mcg/inh nasal spray Start: 08/19/23 1:11:00 PM EDT, 2 spray, intranasal, Daily, Disp# 16 g, PRN: as needed for allergy symptoms, Pharmacy: [facility]/pharmacy #[id number] Start Date: 08/19/23 Status: Ordered gabapentin 300 mg oral capsule Start: 06/10/23 4:10:00 PM EST, 1 cap, PO, Daily, Disp# 30 cap, Refills: 11, Pharmacy: [id number] Start Date: 06/10/23 Status: Ordered hyoscyamine 0.375 mg oral tablet, extended release Start: 04/11/22 2:29:00 PM EST, 1 tab, PO, Daily, Disp# 30 tab, Refills: 1, Pharmacy: [facility]/pharmacy #[id number] Start Date: 04/11/22 Stop Date: 06/10/22 Status: Ordered ketoconazole 2% topical cream Start: 01/22/24 2:26:00 PM EDT, 1 appl, topical, Daily, Disp# 60 g, Refills: 2, Apply to both feet once per day, Pharmacy: [facility]/pharmacy #[id number] Start Date: 01/22/24 Stop Date: 07/20/24 Status: Ordered losartan 100 mg oral tablet Start: 08/05/23 8:38:00 AM EDT, 1 tab, PO, Daily, Disp# 90 tab, Refills: 3, Pharmacy: [id number] Start Date: 08/05/23 Status: Ordered Metoprolol Succinate ER 100 mg oral tablet, extended release Start: 08/05/23 8:38:00 AM EDT, 1 tab, PO, Daily, Disp# 90 tab, Refills: 3, Pharmacy: [id number] Start Date: 08/05/23 Status: Ordered omeprazole 40 mg oral delayed release capsule Start: 01/01/24 10:15:00 AM EDT, 1 cap, PO, Daily, Disp# 30 cap, Refills: 1, Pharmacy: [id number] Start Date: 01/01/24 Stop Date: 01/31/24 Status: Ordered spironolactone 25 mg oral tablet Start: 05/20/23 11:11:00 AM EST, 1 tab, PO, bid, Disp# 180 tab, Refills: 3, Note to Pharmacy: please cancel previous 50mg refills, Pharmacy: [facility]/pharmacy #[id number] Start Date: 05/20/23 Stop Date: 05/14/24 Status: Suspended tamsulosin 0.4 mg oral capsule Start: 08/30/23 10:04:00 AM EDT, 1 cap, PO, Daily, Disp# 90 cap, Refills: 3, Pharmacy: [id number] Start Date: 08/30/23 Status: Ordered tamsulosin 0.4 mg oral capsule Start: 09/02/23 3:45:00 PM EDT, 2 cap, PO, Daily, Disp# 180 cap, Refills: 3, 30 minutes after the same meal, Pharmacy: [facility]/pharmacy #[id number] Start Date: 09/02/23 Stop Date: 08/27/24 Status: Ordered Vitamin C Start: 04/11/22 2:15:00 PM EST Start Date: 04/11/22 Status: Ordered Xarelto 15 mg oral tablet Start: 04/11/22 2:15:00 PM EST, 1 tab, PO, qPM Start Date: 04/11/22 Status: Ordered Mental Status 01/22/24 Barriers to Learning one year None evide nt Mandatory Health Literacy Documentation Yes Health Literacy Communication Barriers N ever Primary Language Bahamian Problem List Condition Confirmation Course Effective Dates Status Health Status Informant ALLERGIC RHINITIS Confirmed Active A-fib Confirmed Active Beta Thalassemia Confirmed Active Cerebrovascular accident (CVA) 1 Confirmed Active Change in nail appearance Confirmed Active Hypertensive chronic kidney disease Confirmed Active Chronic Kidney Disease, Unspecified Confirmed Active Throat clearing Confirmed Active Saphenofemoral venous reflux Confirmed Active Body aches Confirmed Active Gout [...] Effective Dates Health Status Clinical Service Informant Blood thinned due to long-term anticoagulant use Discharge Diagnosis 01/22/24 Non-Specified Tinea unguium Discharge Diagnosis 01/22/24 Non-Specified Tinea pedis of both feet Discharge Diagnosis 01/22/24 Non-Specified Procedures Procedure Date Related Diagnosis Body [...] of 05/04/09. Low suspicion. 3. Normal appendix. Social History Social History Type Response Smoking Status Never smoked cigaret andre Sex Male Sex Representation Male (finding) Ortho Outpt Note * VIN Albert Christina L: PERFORM Event Display: Ortho Outpt Note Authored Date: Chief Complaint cornelius lcare Primary Care Provider MD Yash, Diann Subjective Patient is a very pleasant 63-year-old malehistory of taking Xareltolast seen July 17, 2023. ABN form discussed patient verbalized understanding ABN form signed Review of Systems Irregular heartbeat extremity numbnesswheezing persistent cough anxietypatient takesXarelto Objective Physical Exam Problem focused bilateral feet: Dorsalis pedis pulse palpable 2 out of 4, posterior tibial pulse palpable 2 out of 4,capillary refill time less than 3 seconds,skin turgor is good to all digits of both feet pedal hair is noted to be absentsignificant varicosities are present on bilateral lower extremitieswith history of venous insufficiency, hemosiderin deposits bilateral anterior legsand lower extremity swelling noteddue to history of venous insufficiency. Neurovascular status grossly intact all digits of both feet. Skin is clean dry and intactthere is no maceration no breakdown no open wounds present. Interspaces intact without breakdown or maceration. Toenails of digits 1 through 5 of bilateral feet with discoloration, pain, thickening greater than 1 mm, dystrophyrecommend debridement Assessment/Plan 1.Blood thinned due to long-term anticoagulant use 2.Tinea unguium -Patient unable to provide self care to toenails due touse of anticoagulation medication - verbal consent obtained for debridement -Recommend toenail debridement -Patient had toenails of bilateral digits 1-5 debrided using nail nippers to tolerance, no bleedingnoted -Patient instructed to use emery board to nails once per week -Patient had no ingrown toenails or infection noted -Patient is to follow up in6 months for treatment if needed in the future Electronic Signature on File Electronically Reviewed/Signed by: Jina Albert DPM Author Signature Dt/Tm:01/22/2024 02:04 PM Division of Sports Medicine CLR * VIN Albert, Jina Michael: PERFORM Event Display: Ortho Outpt Note Authored Date: [id number] Bilateral tinea pedis bilateral feet, patient prescribed topical ketoconazole to apply once per day. Electronic Signature on File Electronically Reviewed/Signed by: Jina Albert DPM Author Signature Dt/Tm:01/22/2024 02:26 PM Division of Sports Medicine CLR Patient Care team information Care Team Personnel Name: MD Yash, Diann Position: Physician - Family Med Member Role: Primary Care Provider Address: [address] Name: BAILEY Moore Lynn Position: Physician Literary Writer Exempt - Vasc Surg Member Role: Lifetime Relationship Address: [address] Name: MD Hernandez Juan Position: Physician - Family Med Member Role: Lifetime Relationship Address: [address] [place] [address]
--- OUTSIDE RECORDS SUMMARY | 2024-03-12 11:28 | External Medical Summary | Continuity of Care Document ---
Author Name Unknown Organization [place] [address] [place] [address] [place] [phone] Care Team Providers Care Bilingual Secretary Name Role Phone Diann Berrios Primary Care Physician [phone] [id number] - 01/22/24 [facility] [address] [place] [address] [address] [facility] [address] [facility] [address] [place] [address] [place] [phone] Encounter Diagnosis Hypertensive chronic kidney disease with stage 1 through stage 4 chronic kidney disease, or unspecified chronic kidney disease(Final) - Discharge Disposition: Home or Self Care Attending Physician: MD Berrios Dongsheng Referring Physician: MD Berrios Dongsheng Allergies, Adverse Reactions, Alerts No Known Allergies Immunizations Given and Recorded Vaccine Date Status [...] Daily, Disp# 30 tab, Refills: 11, Pharmacy: [id number] Start Date: 07/22/23 Status: Ordered atorvastatin 80 mg oral tablet Start: 08/19/23 8:16:00 AM EDT, 1 tab, PO, Daily, Disp# 90 tab, Refills: 1, Pharmacy: [id number] Start Date: 08/19/23 Status: Ordered calcitriol 0.25 mcg oral capsule Start: 04/11/22 2:10:00 PM EST, 1 cap, PO, Daily Start Date: 04/11/22 Status: Ordered dilTIAZem 240 mg/24 hours oral tablet, extended release Start: 04/17/22 4:39:00 PM EST, 1 tab, PO, Daily, Disp# 90 tab, Refills: 1, [id number] Start Date: 04/17/22 Stop Date: 10/14/22 Status: Ordered finasteride 5 mg oral tablet Start: 06/26/23 8:39:00 AM EDT, 1 tab, PO, Daily, Disp# 30 tab, Refills: 5, Pharmacy: [facility] [id number] Start Date: 06/26/23 Status: Ordered fluticasone 50 mcg/inh nasal spray Start: 08/19/23 1:11:00 PM EDT, 2 spray, intranasal, Daily, Disp# 16 g, PRN: as needed for allergy symptoms, [id number] Start Date: 08/19/23 Status: Ordered gabapentin 300 mg oral capsule Start: 06/10/23 4:10:00 PM EST, 1 cap, PO, Daily, Disp# 30 cap, Refills: 11, Pharmacy: [id number] Start Date: 06/10/23 Status: Ordered hyoscyamine 0.375 mg oral tablet, extended release Start: 04/11/22 2:29:00 PM EST, 1 tab, PO, Daily, Disp# 30 tab, Refills: 1, [id number] Start Date: 04/11/22 Stop Date: 06/10/22 Status: Ordered ketoconazole 2% topical cream Start: 01/22/24 2:26:00 PM EDT, 1 appl, topical, Daily, Disp# 60 g, Refills: 2, Apply to both feet once per day, [id number] Start Date: 01/22/24 Stop Date: 07/20/24 Status: Ordered losartan 100 mg oral tablet Start: 08/05/23 8:38:00 AM EDT, 1 tab, PO, Daily, Disp# 90 tab, Refills: 3, Pharmacy: [facility] [id number] Start Date: 08/05/23 Status: Ordered Metoprolol Succinate ER 100 mg oral tablet, extended release Start: 08/05/23 8:38:00 AM EDT, 1 tab, PO, Daily, Disp# 90 tab, Refills: 3, Pharmacy: [facility] [id number] Start Date: 08/05/23 Status: Ordered omeprazole 40 mg oral delayed release capsule Start: 01/01/24 10:15:00 AM EDT, 1 cap, PO, Daily, Disp# 30 cap, Refills: 1, Pharmacy: [facility] [id number] Start Date: 01/01/24 Stop Date: 01/31/24 Status: Ordered spironolactone 25 mg oral tablet Start: 05/20/23 11:11:00 AM EST, 1 tab, PO, bid, Disp# 180 tab, Refills: 3, Note to Pharmacy: please cancel previous 50mg refills, [id number] Start Date: 05/20/23 Stop Date: 05/14/24 Status: Suspended tamsulosin 0.4 mg oral capsule Start: 08/30/23 10:04:00 AM EDT, 1 cap, PO, Daily, Disp# 90 cap, Refills: 3, Pharmacy: [facility] [id number] Start Date: 08/30/23 Status: Ordered tamsulosin 0.4 mg oral capsule Start: 09/02/23 3:45:00 PM EDT, 2 cap, PO, Daily, Disp# 180 cap, Refills: 3, 30 minutes after the same meal, [id number] Start Date: 09/02/23 Stop Date: 08/27/24 Status: Ordered Vitamin C Start: 04/11/22 2:15:00 PM EST Start Date: 04/11/22 Status: Ordered Xarelto 15 mg oral tablet Start: 04/11/22 2:15:00 PM EST, 1 tab, PO, qPM Start Date: 04/11/22 Status: Ordered Problem List Condition Confirmation Course Effective Dates [...] disorder Confirmed Active 1occured November 2016 2B/L Procedures Procedure Date Related Diagnosis Body Site [...] of 05/04/09. Low suspicion. 3. Normal appendix. Results Laboratory List Name Date Basic Metabolic Panel (BASIC METAB PANEL ) 01/22/24 Most recent to oldest [Reference Range]: 1 eGFR CKD-EPI [>60 mL/min/1.73 m2] 47 mL/ min/1.73 m2 *LOW* (01/22/24 2:21 PM) Estimated CrCl 58.65 mL/min (01/22/24 11:06 PM) Anion Gap [5-14 mmol/L] 10 mmol/L (01/22/24 2:21 PM) BUN [6-23 mg/dL] 20 mg/dL (01/22/24 2:21 PM) Ca [8.4-10.2 mg/dL] 9.7 mg/dL (01/22/24 2:21 PM) Cl- [98-107 mmol/L] 109 mmol/L *HI* (01/22/24 2:21 PM) HCO3 [22-29 mmol/L] 26 mmol/L (01/22/24 2:21 PM) Cret [0.70-1.30 mg/dL] 1.65 mg/dL *HI* (01/22/24 2:21 PM) Glu [74-109 mg/dL] 107 mg/dL 1 (01/22/24 2:21 PM) K [3.5-5.1 mmol/L] 4.0 mmol/L (01/22/24 2:21 PM) Na [136-145 mmol/L] 145 mmol/L (01/22/24 2:21 PM) 1Result Comment: ADA recommendation for FASTING Serum/Plasma Glucose: Normal: 70-100 mg/dL Prediabetes: 100-125 mg/dL Diabetes: 126 mg/dL or higher Social History Social History Type Response Smoking Status Never smoked cigaret andre Sex Male Sex Representation Male (finding) Patient Care team information Care Team Personnel Name: MD Yash, Diann Position: Physician - Family Med Member Role: Primary Care Provider Address: [address] [facility] [place] [address] Name: BAILEY Moore Lynn Position: Physician Platform Architect Exempt - Vasc Surg Member Role: Lifetime Relationship Address: [address] Name: MD Hernandez Juan Position: Physician - Family Med Member Role: Lifetime Relationship Address: [address] [place] [address]
--- OUTSIDE RECORDS SUMMARY | 2024-03-12 11:28 | External Medical Summary | Continuity of Care Document ---
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 Name Role Phone Diann Berrios Primary Care Physician [phone] Encounter [facility] [id number] Date(s): 10/30/23 - 10/30/23 [facility] [address] [facility] [address] [place] [address] [place] [phone] Encounter Diagnosis A-fib(Discharge Diagnosis) - 10/30/23 Restless legs syndrome (RLS)(Discharge Diagnosis) - 10/30/23 Hypertensive chronic kidney disease(Discharge Diagnosis) - 10/30/23 Morbid obesity(Discharge Diagnosis) - 10/30/23 Discharge Disposition: Home or Self Care Attending Physician: MD Berrios Dongsheng Allergies, Adverse Reactions, Alerts No Known Allergies Assessment and Plan Extracted from: Title:Office Visit Note Author:MD Berrios Dongsh eng Date:10/30/23 1.Hypertensive chronic kid maulik disease STATUS: Chronic stable: low BP x with h/o orthostatic hypotension Chronic uncontrolled: Acute uncomplicated: Acute illness with systemic symptoms: Undiagnosed new problems with uncertain prognosis: Chronic illnesses with exacerbation, progression, or side effects of treatment: 1 acute complicated injury: DATA: Review of prior external note(s) from each unique source: Review of the result(s) of each unique test: x Ordering of each unique test: x Assessment requiring independent historian(s): GOAL: bp<140/90but avoidlowBP PLAN: continuemeds but hold spironolactone for now. Will monitorlegswelling. If worse, willcut down losartan and addspironolactonebackon.f/u neph. DASH and exercise and wt loss.declined sleep study. Home BP QID and bring home machine to next visit - did not bring in today, again.check BMP. 2.A-fib STATUS: Chronic stable: x Chronic uncontrolled: [...] PLAN: f/u cardiology. continue meds. Nondrinker. Avoid NSAIDs. 3.Restless legs syndrome (RLS) STATUS: Chronic stable: x Chronic uncontrolled: Acute [...] requiring independent historian(s): GOAL: Maintain stability PLAN: continuegabapentin. 4.Morbid obesity STATUS: Chronic stable: Chronic uncontrolled: x [...] GOAL: 5%loss PLAN: diet and exercise. declined GLP1. call prn.f/u 3 mos Immunizations Given and Recorded Vaccine Date Status [...] Daily, Disp# 30 tab, Refills: 11, Pharmacy: [facility] ST[id number] Start Date: 07/22/23 Status: Ordered atorvastatin 80 mg oral tablet Start: 08/19/23 8:16:00 AM EDT, 1 tab, PO, Daily, Disp# 90 tab, Refills: 1, Pharmacy: [facility] STORE [id number] Start Date: 08/19/23 Status: Ordered calcitriol 0.25 mcg oral capsule Start: 04/11/22 2:10:00 PM EST, 1 cap, PO, Daily Start Date: 04/11/22 Status: Ordered dilTIAZem 240 mg/24 hours oral tablet, extended release Start: 04/17/22 4:39:00 PM EST, 1 tab, PO, Daily, Disp# 90 tab, Refills: 1, [id number] Start Date: 04/17/22 Stop Date: 10/14/22 Status: Ordered finasteride 5 mg oral tablet Start: 06/26/23 8:39:00 AM EDT, 1 tab, PO, Daily, Disp# 30 tab, Refills: 5, Pharmacy: [facility] STORE [id number] Start Date: 06/26/23 Status: Ordered fluticasone 50 mcg/inh nasal spray Start: 08/19/23 1:11:00 PM EDT, 2 spray, intranasal, Daily, Disp# 16 g, PRN: as needed for allergy symptoms, Pharmacy: [facility]/pharmacy #[id number] Start Date: 08/19/23 Status: Ordered gabapentin 300 mg oral capsule Start: 06/10/23 4:10:00 PM EST, 1 cap, PO, Daily, Disp# 30 cap, Refills: 11, Pharmacy: [facility] STORE [id number] Start Date: 06/10/23 Status: Ordered hyoscyamine 0.375 mg oral tablet, extended release Start: 04/11/22 2:29:00 PM EST, 1 tab, PO, Daily, Disp# 30 tab, Refills: 1, Pharmacy: [facility]/pharmacy #[id number] Start Date: 04/11/22 Stop Date: 06/10/22 Status: Ordered losartan 100 mg oral tablet Start: 08/05/23 8:38:00 AM EDT, 1 tab, PO, Daily, Disp# 90 tab, Refills: 3, Pharmacy: [facility] ST[id number] Start Date: 08/05/23 Status: Ordered Metoprolol Succinate ER 100 mg oral tablet, extended release Start: 08/05/23 8:38:00 AM EDT, 1 tab, PO, Daily, Disp# 90 tab, Refills: 3, Pharmacy: [id number] Start Date: 08/05/23 Status: Ordered omeprazole 40 mg oral delayed release capsule Start: 10/30/23 9:44:00 AM EDT, 1 cap, PO, Daily, Disp# 30 cap, Refills: 1, Pharmacy: [facility] [id number] Start Date: 10/30/23 Stop Date: 11/29/23 Status: Ordered spironolactone 25 mg oral tablet Start: 05/20/23 11:11:00 AM EST, 1 tab, PO, bid, Disp# 180 tab, Refills: 3, Note to Pharmacy: please cancel previous 50mg refills, Pharmacy: [facility]/pharmacy #[id number] Start Date: 05/20/23 Stop Date: 05/14/24 Status: Suspended tamsulosin 0.4 mg oral capsule Start: 08/30/23 10:04:00 AM EDT, 1 cap, PO, Daily, Disp# 90 cap, Refills: 3, Pharmacy: [facility] [id number] Start Date: 08/30/23 Status: Ordered tamsulosin 0.4 mg oral capsule Start: 09/02/23 3:45:00 PM EDT, 2 cap, PO, Daily, Disp# 180 cap, Refills: 3, 30 minutes after the same meal, [id number] Start Date: 09/02/23 Stop Date: 08/27/24 Status: Ordered Vitamin C Start: 04/11/22 2:15:00 PM EST Start Date: 04/11/22 Status: Ordered Xarelto 15 mg oral tablet Start: 04/11/22 2:15:00 PM EST, 1 tab, PO, qPM Start Date: 04/11/22 Status: Ordered Mental Status 10/30/23 Barriers to Learning one year None evide nt Mandatory Health Literacy Documentation Yes Health Literacy Communication Barriers N ever Primary Language Icelandic Problem List Condition Confirmation Course Effective Dates [...] Status Clinical Service Informant A-fib Discharge Diagnosis 10/30/23 Non-Specified Restless legs syndrome (RLS) Discharge Diagnosis 10/30/23 Non-Specified Hypertensive chronic kidney disease Discharge Diagnosis 10/30/23 Non-Specified Morbid obesity Discharge Diagnosis 10/30/23 Non-Specified Procedures Procedure Date Related Diagnosis Body [...] Most recent to oldest [Reference Range]: 1 Patient Weight 118.2 kg (10/30/23 2:43 PM) Heart Rate 58 bpm (10/30/23 2:43 PM) Respiratory Rate 18 br/min (10/30/23 2:43 PM) Blood Pressure 94/72mmHg (10/30/23 2:43 PM) Cuff Pulse Pressure 22 mmHg (10/30/23 2:43 PM) Social History Social History Type Response Smoking Status Never smoked cigaret andre Sex Male FCM Outpt Note * MD Yash, Diann: PERFORM Event Display: FCM Outpt Note Authored Date: [id number] Chief Complaint 1 mon f/u History of Present Illness HTN: on meds includine spironolactone once dailyHad dizziness when standing up last Katharnia. no home bp check. HLD: on statin. no muscle aches. CVA: on meds. stable a fib: on meds. stable moving back to [place]. Review of Systems No fever/chills. No headache. No respiratory symptoms. No chest pain/shortness of breath. No nausea/vomiting. No abdominal pain. No change with bowels. No urinary symptoms. No bleeding. No joint pain. No anxiety/depression. Other systems reviewed and are neg. Physical Exam Vitals & Measurements HR:58(Monitored) RR:18 BP:94/72 SpO2:98% WT:118.2kg WT:118.200kg(Dosing) PHQ2 Data(Data Documented on:10/30/2023 14:41) Emotional health assessment NEGATIVE General: No acute distress. Nontoxic. Neck:Supple, Non-tender, No thyromegaly Respiratory:Lungs are clear to auscultation, Respirations non-labored, Breath sounds equal GENE. Cardiovascular:Normal rate, Regular rhythm, No murmur, Rubs, gallops. Gastrointestinal:Soft, Non-tender, Non-distended, Normal bowel sounds. Musculoskeletal:trace pitting edema Integumentary:No rashes Neurologic:Alert, Oriented, No focal deficits. Psychiatric:Cooperative, Appropriate mood & affect. Assessment/Plan 1.Hypertensive chronic kidney disease STATUS: Chronic stable: low BP x with h/o orthostatic hypotension Chronic uncontrolled: Acute uncomplicated: Acute illness with systemic symptoms: Undiagnosed new problems with uncertain prognosis: Chronic illnesses with exacerbation, progression, or side effects of treatment: 1 acute complicated injury: DATA: Review of prior external note(s) from each unique source: Review of the result(s) of each unique test: x Ordering of each unique test: x Assessment requiring independent historian(s): GOAL: bp<140/90but avoidlowBP PLAN: continuemeds but hold spironolactone for now. Will monitorlegswelling. If worse, willcut down losartan and addspironolactonebackon.f/u neph. DASH and exercise and wt loss. declined sleep study. Home BP QID and bring home machine to next visit - did not bring in today, again.check BMP. 2.A-fib STATUS: Chronic stable: x Chronic uncontrolled: [...] PLAN: f/u cardiology. continue meds. Nondrinker. Avoid NSAIDs. 3.Restless legs syndrome (RLS) STATUS: Chronic stable: x Chronic uncontrolled: Acute [...] requiring independent historian(s): GOAL: Maintain stability PLAN: continuegabapentin. 4.Morbid obesity STATUS: Chronic stable: Chronic uncontrolled: x [...] GOAL: 5%loss PLAN: diet and exercise. declined GLP1. call prn.f/u 3 mos Problem List/Past Medical History Ongoing A-fib ALLERGIC RHINITIS Beta Thalassemia Blood thinned due to long-term anticoagulant use Body aches Cerebrovascular accident (CVA) Change in nail appearance Chronic Kidney Disease, Unspecified Chronic venous insufficiency Gout Hematospermia HTN - Hypertension Hyperlipidemia Hypertensive [...] mg= 1 tab, PO, Daily, 1 refills losartan(losartan 100 mg oral tablet), 1 tab, PO, Daily metoprolol(Metoprolol Succinate ER 100 mg oral tablet, extended release), 1 tab, PO, Daily omeprazole(omeprazole 40 mg oral delayed release capsule), 1 cap, PO, Daily rivaroxaban(Xarelto 15 mg oral tablet), 15 mg= 1 tab, PO, qPM tamsulosin(tamsulosin 0.4 mg oral capsule), 1 cap, PO, Daily tamsulosin(tamsulosin 0.4 mg oral capsule), 0.8 mg= 2 cap, PO, Daily, 3 refills Allergies NKA Social History Smoking Status Never smoked cigarettes Sexual - High Risk Self described orientation:Homosexual Tobacco - No Risk Family History Breast cancer: Mother. High Blood Pressure: Mother. Prostate cancer..: Father. Health Status Family Member(s) Immunizations Vaccine Date Status SARS COVID Vaccine Unspecified 04/24/2023 Recorded tetanus/diphtheria/pertuss, acel (Tdap) 04/06/2023 Recorded influenza virus vaccine, inactivated 01/23/2023 Given influenza virus vaccine, inactivated 12/30/2015 Given influenza virus vaccine, inactivated 02/22/2015 Given influenza virus vaccine, inactivated 01/29/2013 Given influenza virus vaccine, inactivated 03/27/2012 Given influenza virus vaccine, inactivated 03/19/2011 Given tetanus/diphtheria/pertuss, acel (Tdap) 10/08/2006 Recorded Recommendations Health Maintenance Pending(in the next year) Due Adult Influenza Vaccine due10/13/23and every 1year Adult COVID-19 Vaccination due10/30/23Unknown Frequency Adult Social Determinants of Health Screening due10/30/23Unknown Frequency Pneumococcal Vaccine Adults and Adolescents with Chronic Illness due10/30/23One-time only Shingles Vaccine due10/30/23One-time only Satisfied(in the past 1 year) Satisfied Adult Influenza Vaccine on01/23/23.Satisfied by LIZETTE Dinero Vanessa T Adult Tdap/Td Vaccine on04/06/23.Satisfied by LIZETTE Dinero Vanessa T Body Mass Index on05/20/23.Satisfied by LIZETTE Higuera Michael Lipid Screening on05/20/23.Satisfied by Contributor_system, [email or web address] Refused Colorectal Cancer Screening on01/01/23.Recorded by JAMES Nagel Lynnae Electronic Signature on File Electronically Reviewed/Signed by: Diann Berrios MD Author Signature Dt/Tm:10/30/2023 03:11 PM Department of Family Medicine DJ Patient Care team information Care Team Personnel Name: MD Berrios Dongsheng Position: Physician - Family Med Member Role: Primary Care Provider Address: Address: [address] [place] [address] Name: BAILEY Moore Lynn Position: Physician Research Biologist Exempt - Vasc Surg Member Role: Lifetime Relationship Address: Address: [address] [place] [address] Name: MD Hernandez Juan Position: Physician - Family Med Member Role: Lifetime Relationship Address: Address: [address] [facility] [place] [address]"
--- NOTE | 2024-03-12 11:58 | Surgery Progress Note ---
Date of Service March 12, 2024 Assessment & Plan (1) Appendicitis: Plan: 63-year-old gentleman with a perforated appendicitis with large phlegmon and small fluid collections. There is no free perforation. He has no peritoneal signs. White count of 10. There is no abscess to drain. He will be admitted to the hospitalist service for IV antibiotic and fluid resuscitation. He has been placed on Zosyn. N.p.o. for now. He has extensive cardiac and nephrology history and the services will be consulted. No surgical intervention required at this time. We will continue to follow closely. Admission and Anticipated Discharge Date Admission Date: March 11, 2024 Subjective no changes overnight. Denies nausea or vomiting. No fevers or chills. Still with some abdominal pain. Physical Exam Physical Exam: NAD, A&O x 3 NCAT, no scleral icterus AFVSS Gastrointestinal (Abdomen): Inspection/Auscultation: abdomen normal to inspection and + abdomen distended ( Mild) Percussion/Palpation: + abdomen tender ( RLQ) and abdomen soft; no guarding and abdomen not rigid Results & Data Vital Signs (Past 12 Hours) Vital Signs Temp Pulse Pulse Resp BP BP Pulse Ox 03/12/24 11:15 36.3 C L 80 18 92 03/12/24 11:00 113/71 03/12/24 10:51 36.2 C L 75 18 93 03/12/24 10:01 84/65 L 03/12/24 10:00 36.2 C L 72 17 98 03/12/24 09:09 36.2 C L 68 16 97 03/12/24 08:39 36.2 C L 74 31 H 96 03/12/24 08:37 91/53 L 03/12/24 07:27 72 03/12/24 07:00 36.1 C L 76 18 94 03/12/24 06:36 36.1 C L 77 18 96 03/12/24 06:00 36.1 C L 77 23 97 03/12/24 05:42 36.1 C L 76 23 95 03/12/24 05:06 36.1 C L 73 16 91 03/12/24 04:36 36.1 C L 75 15 97 03/12/24 04:03 36.0 C L 74 16 95 03/12/24 03:33 36.0 C L 79 17 96 03/12/24 03:17 95/66 L 03/12/24 03:17 95/66 L 03/12/24 03:03 36.0 C L 72 17 95 03/12/24 02:48 35.9 C L 73 15 95 03/12/24 02:14 36.5 C 70 16 108/77 98 03/12/24 02:00 108/77 03/12/24 01:54 35.9 C L 73 29 H 95 03/12/24 01:06 35.9 C L 69 18 97 03/12/24 01:00 110/72 03/12/24 01:00 110/72 03/12/24 00:42 35.9 C L 72 16 98 03/12/24 00:01 88/59 L 03/12/24 00:01 88/59 L 03/12/24 00:00 36.1 C L 70 17 87 L 03/12/24 00:00 71 O2 Del Method O2 Flow Rate 03/12/24 11:15 Room Air 03/12/24 11:00 03/12/24 10:51 03/12/24 10:01 03/12/24 10:00 03/12/24 09:09 03/12/24 08:39 03/12/24 08:37 03/12/24 07:27 03/12/24 07:00 Room Air 03/12/24 06:36 03/12/24 06:00 03/12/24 05:42 03/12/24 05:06 03/12/24 04:36 03/12/24 04:03 03/12/24 03:33 03/12/24 03:17 03/12/24 03:17 03/12/24 03:03 03/12/24 02:48 03/12/24 02:14 Nasal Cannula 2 03/12/24 02:00 03/12/24 01:54 03/12/24 01:06 03/12/24 01:00 03/12/24 01:00 03/12/24 00:42 03/12/24 00:01 03/12/24 00:01 03/12/24 00:00 03/12/24 00:00 Laboratory Results 11/28/24 11/28/24 11/27/24 Range/Units 11:30 04:12 Unknown WBC 10.20 (4.8-10.8) K/ul RBC 5.77 (4.70-6.10) M/uL Hgb 12.2 L (14.0-18.0) g/dl Hct 38.9 L (42.0-52.0) % MCV 67.4 L (80.0-100.0) fL MCH 21.1 L (25.0-34.0) pg MCHC 31.4 L (32.0-36.0) g/dL RDW Std Deviation 35.7 L (36.4-46.3) fL RDW Coeff of Aram 15.2 H (11.5-14.5) % Plt Count 244 (130-400) K/uL MPV 11.1 (9.4-12.4) fL Immature Gran % (Auto) 0.7 % Neut % (Auto) 73.3 % Lymph % (Auto) 16.4 % [place] % (Auto) 8.3 % Eos % (Auto) 0.8 % Baso % (Auto) 0.5 % Neut # (Auto) 7.48 H (1.40-6.50) K/uL Lymph # (Auto) 1.67 (1.20-3.40) K/uL [place] # (Auto) 0.85 H (0.11-0.59) K/uL Eos # (Auto) 0.08 (0.00-0.50) K/uL Baso # (Auto) 0.05 (0.00-0.20) K/uL Immature Gran # (Auto) 0.07 (0.01-0.20) K/uL Microcytosis Present Tear Drop Cells 1+ Ovalocytes 1+ VBG pH 7.20 L (7.36-7.41) VBG pCO2 47 (38-50) mmHg VBG pO2 32 mmHg VBG HCO3 18 mmol/L VBG O2 Saturation < 60.0 % VBG Base Excess -9.6 mEq/L Sodium 140 (136-145) mmol/L Potassium 4.7 (3.5-5.1) mmol/L Chloride 113 H (98-107) mmol/L Carbon Dioxide 17 L (21-32) mmol/L Anion Gap 10 (3-11) BUN 116 H (6-23) mg/dl Creatinine 6.38 H* D (0.6-1.4) mg/dl Est Cr Clr Drug Dosing 14.9 ml/min eGFR 9.27 BUN/Creatinine Ratio 18.2 (10-20) Glucose 92 (70-99(Fasting)) mg/dl POC Glucose 94 (70-99) mg/dl Lactate (0.4-2.0) mmol/L Calcium 8.7 (8.6-10.3) mg/dl Magnesium 2.3 (1.7-2.4) mg/dl Total Bilirubin (0.2-1.0) mg/dl AST (13-39) U/L ALT (7-52) U/L Alkaline Phosphatase (34-104) U/L Total Protein (6.0-8.3) gm/dl Albumin (3.4-5.0) gm/dl Globulin (2.5-4.0) gm/dl Albumin/Globulin Ratio (0.9-2) Lipase (11-82) U/L Procalcitonin (0-0.5) ng/ml Urine Color Yellow Urine Appearance Clear (Clear) Urine pH 5.0 (4.5-7.5) Ur Specific [place] 1.014 (1.000-1.030) Urine Protein Trace H (Negative) Urine Glucose (UA) Negative (Negative) Urine Ketones Negative (Negative) Urine Blood 1+ H (Negative) Urine Nitrite Negative (Negative) Urine Bilirubin Negative (Negative) Urine Urobilinogen Negative (Negative) Ur Leukocyte Esterase Negative (Negative) Urine WBC (Auto) 0-5 (0-5) /hpf Urine RBC (Auto) 11-20 H (0-2) /hpf U Hyaline Cast (Auto) 11-20 H (0-2) /lpf U Epithel Cells (Auto) 0-2 (0-2) /hpf Urine Bacteria (Auto) None Seen (None Seen) Nasal Screen MRSA (PCR) (Negative) 03/11/24 03/11/24 03/11/24 Range/Units 22:20 22:08 18:11 WBC (4.8-10.8) K/ul RBC (4.70-6.10) M/uL Hgb (14.0-18.0) g/dl Hct (42.0-52.0) % MCV (80.0-100.0) fL MCH (25.0-34.0) pg MCHC (32.0-36.0) g/dL RDW Std Deviation (36.4-46.3) fL RDW Coeff of Aram (11.5-14.5) % Plt Count (130-400) K/uL MPV (9.4-12.4) fL Immature Gran % (Auto) % Neut % (Auto) % Lymph % (Auto) % [place] % (Auto) % Eos % (Auto) % Baso % (Auto) % Neut # (Auto) (1.40-6.50) K/uL Lymph # (Auto) (1.20-3.40) K/uL [place] # (Auto) (0.11-0.59) K/uL Eos # (Auto) (0.00-0.50) K/uL Baso # (Auto) (0.00-0.20) K/uL Immature Gran # (Auto) (0.01-0.20) K/uL Microcytosis Tear Drop Cells Ovalocytes VBG pH 7.21 L (7.36-7.41) VBG pCO2 41 (38-50) mmHg VBG pO2 33 mmHg VBG HCO3 16 mmol/L VBG O2 Saturation < 60.0 % VBG Base Excess -11.0 mEq/L Sodium 139 (136-145) mmol/L Potassium 5.1 (3.5-5.1) mmol/L Chloride 112 H (98-107) mmol/L Carbon Dioxide 16 L (21-32) mmol/L Anion Gap 11 (3-11) BUN 124 H (6-23) mg/dl Creatinine 7.32 H* D (0.6-1.4) mg/dl Est Cr Clr Drug Dosing 13.0 ml/min eGFR 7.86 BUN/Creatinine Ratio 16.9 (10-20) Glucose 88 (70-99(Fasting)) mg/dl POC Glucose (70-99) mg/dl Lactate 1.0 (0.4-2.0) mmol/L Calcium 8.0 L (8.6-10.3) mg/dl Magnesium (1.7-2.4) mg/dl Total Bilirubin (0.2-1.0) mg/dl AST (13-39) U/L ALT (7-52) U/L Alkaline Phosphatase (34-104) U/L Total Protein (6.0-8.3) gm/dl Albumin (3.4-5.0) gm/dl Globulin (2.5-4.0) gm/dl Albumin/Globulin Ratio (0.9-2) Lipase (11-82) U/L Procalcitonin (0-0.5) ng/ml Urine Color Urine Appearance (Clear) Urine pH (4.5-7.5) Ur Specific [place] (1.000-1.030) Urine Protein (Negative) Urine Glucose (UA) (Negative) Urine Ketones (Negative) Urine Blood (Negative) Urine Nitrite (Negative) Urine Bilirubin (Negative) Urine Urobilinogen (Negative) Ur Leukocyte Esterase (Negative) Urine WBC (Auto) (0-5) /hpf Urine RBC (Auto) (0-2) /hpf U Hyaline Cast (Auto) (0-2) /lpf U Epithel Cells (Auto) (0-2) /hpf Urine Bacteria (Auto) (None Seen) Nasal Screen MRSA (PCR) Negative (Negative) 03/11/24 Range/Units 17:00 WBC 12.51 H (4.8-10.8) K/ul RBC 6.37 H (4.70-6.10) M/uL Hgb 13.5 L (14.0-18.0) g/dl Hct 43.1 (42.0-52.0) % MCV 67.7 L (80.0-100.0) fL MCH 21.2 L (25.0-34.0) pg MCHC 31.3 L (32.0-36.0) g/dL RDW Std Deviation 35.9 L (36.4-46.3) fL RDW Coeff of Aram 16.4 H (11.5-14.5) % Plt Count 288 (130-400) K/uL MPV 11.7 (9.4-12.4) fL Immature Gran % (Auto) 0.8 % Neut % (Auto) 79.0 % Lymph % (Auto) 12.6 % [place] % (Auto) 6.7 % Eos % (Auto) 0.6 % Baso % (Auto) 0.3 % Neut # (Auto) 9.87 H (1.40-6.50) K/uL Lymph # (Auto) 1.58 (1.20-3.40) K/uL [place] # (Auto) 0.84 H (0.11-0.59) K/uL Eos # (Auto) 0.08 (0.00-0.50) K/uL Baso # (Auto) 0.04 (0.00-0.20) K/uL Immature Gran # (Auto) 0.10 (0.01-0.20) K/uL Microcytosis Present Tear Drop Cells Ovalocytes VBG pH (7.36-7.41) VBG pCO2 (38-50) mmHg VBG pO2 mmHg VBG HCO3 mmol/L VBG O2 Saturation % VBG Base Excess mEq/L Sodium 136 (136-145) mmol/L Potassium 4.9 (3.5-5.1) mmol/L Chloride 106 (98-107) mmol/L Carbon Dioxide 16 L (21-32) mmol/L Anion Gap 14 H (3-11) BUN 130 H (6-23) mg/dl Creatinine 8.18 H* (0.6-1.4) mg/dl Est Cr Clr Drug Dosing 11.6 ml/min eGFR 6.88 BUN/Creatinine Ratio 15.9 (10-20) Glucose 96 (70-99(Fasting)) mg/dl POC Glucose (70-99) mg/dl Lactate (0.4-2.0) mmol/L Calcium 8.9 (8.6-10.3) mg/dl Magnesium (1.7-2.4) mg/dl Total Bilirubin 0.5 (0.2-1.0) mg/dl AST 18 (13-39) U/L ALT 28 (7-52) U/L Alkaline Phosphatase 73 (34-104) U/L Total Protein 7.4 (6.0-8.3) gm/dl Albumin 3.1 L (3.4-5.0) gm/dl Globulin 4.3 H (2.5-4.0) gm/dl Albumin/Globulin Ratio 0.7 L (0.9-2) Lipase 352 H (11-82) U/L Procalcitonin 1.65 H (0-0.5) ng/ml Urine Color Urine Appearance (Clear) Urine pH (4.5-7.5) Ur Specific [place] (1.000-1.030) Urine Protein (Negative) Urine Glucose (UA) (Negative) Urine Ketones (Negative) Urine Blood (Negative) Urine Nitrite (Negative) Urine Bilirubin (Negative) Urine Urobilinogen (Negative) Ur Leukocyte Esterase (Negative) Urine WBC (Auto) (0-5) /hpf Urine RBC (Auto) (0-2) /hpf U Hyaline Cast (Auto) (0-2) /lpf U Epithel Cells (Auto) (0-2) /hpf Urine Bacteria (Auto) (None Seen) Nasal Screen MRSA (PCR) (Negative) (1) Appendicitis Appendicitis type: acute appendicitis Acute appendicitis type: with localized peritonitis Appendicitis gangrene presence: unspecified whether gangrene present Appendicitis perforation presence: with perforation Appendicitis abscess presence: without abscess Qualified Code(s): K35.32 - Acute appendicitis with perforation, localized peritonitis, and gangrene, without abscess
--- NOTE | 2024-03-12 15:09 | Hospitalist Progress Note ---
Date of Service March 12, 2024 Assessment & Plan (1) Sepsis: Plan: Septic shock secondary to ruptured appendicitis BP on arrival 60/42 which responded to fluid resuscitation, not requiring pressors. Blood pressures now soft but acceptable With leukocytosis, elevated procalcitonin, acute kidney injury, and occasional tachypnea with ruptured appendicitis as the source of sepsis. Lactate normal, afebrile CT A/P with moderate Phlegmonous process at expected location of appendix with multiple small air fluid levels and free mesenteric gas c/w locally perforated appendicitis. No drainable fluid collection Surgery consult appreciated-because there is no peritoneal signs or free perforation and no abscess to drain, there is no indication for emergency surgery. Continue IV antibiotics with IV Zosyn Keep n.p.o. 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 UA with trace protein, 1+ blood, 11-20 RBCs, 11-20 hyaline casts Secondary to ATN from septic shock in the setting of taking spironolactone and losartan at home Nonoliguric and is now making plenty of urine, Jarquin catheter in place Creatinine improving down to 6.3, BUN down to 116, serum bicarbonate improving to 17 Continue isotonic bicarbonate drip and reassess BMP this evening and again in the morning to assess for type of further fluids Nephrology consult appreciated Holding home losartan and spironolactone Was given IV calcium for hypocalcemia, holding home calcitriol Renally dose medications Support blood pressure with IV fluids and pressors if needed (3) Appendicitis: Plan: Presented with pain in RLQ, diarrhea, nausea, vomiting x 2 weeks Plan noted as above (4) Atrial fibrillation, permanent: Plan: Rates are controlled on telemetry Holding home metoprolol, diltiazem, and Xarelto for being n.p.o. and hypotensive and in case of need for potential surgery Could give IV Lopressor as needed if heart rates become elevated but blood pressures remain soft Would consider starting IV heparin drip for anticoagulation if unable to resume Xarelto in the next couple of days Continue monitoring on telemetry (5) HTN (hypertension): Plan: Blood pressures low normal at this point Continue holding home metoprolol and diltiazem as well as losartan and spironolactone for acute kidney injury Plan Chronic medical problems: Dyslipidemia: Atorvastatin on hold while n.p.o.-resume once tolerating p.o. Prostate cancer: Active surveillance ongoing for low risk grade, F/U with Uro on Outpatient basis. Holding home finasteride and tamsulosin GERD-giving IV PPI Gout-no acute issues, holding home allopurinol Neuropathy-holding home gabapentin Dispo-continued stay on PCU telemetry DVT prophylaxis: SCDs Code status: Full code Admission and Anticipated Discharge Date Admission Date: March 11, 2024 Subjective Patient denies nausea or vomiting. He is very minimal abdominal pain at this time. He is feeling hungry and asked for food. Telemetry with rate controlled atrial fibrillation Physical Exam Constitutional: WD/WN, vitals as above + obese Respiratory: normal respiratory effort, lungs clear to auscultation Cardiovascular: Rate/Rhythm: regular rate and + irregularly irregular Heart Sounds: no murmur Extremities: no edema Gastrointestinal (Abdomen): Inspection/Auscultation: normal bowel sounds; abdomen not distended Percussion/Palpation: abdomen soft; abdomen nontender and no guarding Psychiatric: Orientation: oriented x 3 and cooperative; + not alert (Drowsy but wakes up easily) Genitourinary: Jarquin catheter in place draining clear yellow urine Results & Data Results & Data Vital Signs (Past 12 Hours) Vital Signs Temp Pulse Resp BP Pulse Ox O2 Del Method 03/12/24 11:15 36.3 C L 80 18 92 Room Air 03/12/24 11:00 113/71 03/12/24 10:51 36.2 C L 75 18 93 03/12/24 10:01 84/65 L 03/12/24 10:00 36.2 C L 72 17 98 03/12/24 09:09 36.2 C L 68 16 97 03/12/24 08:39 36.2 C L 74 31 H 96 03/12/24 08:37 91/53 L 03/12/24 07:27 72 03/12/24 07:00 36.1 C L 76 18 94 Room Air 03/12/24 06:36 36.1 C L 77 18 96 03/12/24 06:00 36.1 C L 77 23 97 03/12/24 05:42 36.1 C L 76 23 95 03/12/24 05:06 36.1 C L 73 16 91 03/12/24 04:36 36.1 C L 75 15 97 03/12/24 04:03 36.0 C L 74 16 95 03/12/24 03:33 36.0 C L 79 17 96 03/12/24 03:17 95/66 L 03/12/24 03:17 95/66 L Laboratory Results CBC, BMP, magnesium, blood cultures reviewed PG Care Time/CCT Total # of Minutes Spent Total Time Spent with Patient: Total time spent is greater than 50% in coordination of care (as documented) at patient's floor/unit and/or counseling patient: Coding Level of Care Code 68169 SUB INP/OBS CARE 3/50MIN Diagnoses Sepsis A41.9 Acute kidney injury N17.9 Acute appendicitis with perforation and localized peritonitis, without abscess, unspecified whether gangrene present K35.32 Appendicitis type: acute appendicitis Acute appendicitis type: with localized peritonitis Appendicitis gangrene presence: unspecified whether gangrene present Appendicitis perforation presence: with perforation Appendicitis abscess presence: without abscess Atrial fibrillation, permanent I48.21 Primary hypertension I10 Hypertension type: primary hypertension (3) Appendicitis Appendicitis type: acute appendicitis Acute appendicitis type: with localized peritonitis Appendicitis gangrene presence: unspecified whether gangrene present Appendicitis perforation presence: with perforation Appendicitis abscess presence: without abscess Qualified Code(s): K35.32 - Acute appendicitis with perforation, localized peritonitis, and gangrene, without abscess (5) HTN (hypertension) Hypertension type: primary hypertension Qualified Code(s): I10 - Essential (primary) hypertension
[2024-03-12 17:37] LABS: BUN Creatinine Ratio 21.3 (10-20); Calcium 8.9 mg/dl (8.6-10.3); Potassium 4.7 mmol/L (3.5-5.1)
[2024-03-12] MEDS: PLASMA-LYTE A 1,000 ML IV SCH (22:49)
[2024-03-13 05:30] LABS: Basophils # (auto) 0.05 K/uL (0.00-0.20); Basophils % (auto) 0.5 %; Eosinophils # (auto) 0.12 K/uL (0.00-0.50); Eosinophils % (auto) 1.3 %; Hematocrit (blood only) 40.8 % (42.0-52.0); Hemoglobin 12.8 g/dl (14.0-18.0); Immature Granulocytes # (auto) 0.09 K/uL (0.01-0.20); Lymphocytes # (auto) 1.64 K/uL (1.20-3.40); Lymphocytes % (auto) 17.8 %; Mean Corpuscular Hgb Conc 31.4 g/dL (32.0-36.0); Monocytes % (auto) 9.8 %; Neutrophils # (auto) 6.39 K/uL (1.40-6.50); Neutrophils % (auto) 69.6 %; RDW Coefficient of Variation 15.1 % (11.5-14.5); RDW Standard Deviation 34.8 fL (36.4-46.3); Red Blood Count 6.09 M/uL (4.70-6.10); White Blood Count 9.19 K/ul (4.8-10.8)
[2024-03-13 05:34] LABS: BUN Creatinine Ratio 19.8 (10-20); Calcium 8.6 mg/dl (8.6-10.3); Phosphorus 4.1 mg/dl (2.5-4.9); Potassium 4.5 mmol/L (3.5-5.1)
[2024-03-13 05:39] LABS: Mean Platelet Volume 11.7 fL (9.4-12.4); Platelet Count 266 K/uL (130-400)
[2024-03-13 05:51] LABS: Microcytosis Present; Ovalocytes 1+; Polychromasia 2+; Tear Drop Cells 1+
[2024-03-13 05:53] LABS: INR 1.2 (0.9-1.1); Partial Thromboplastin Ratio 1.1; Partial Thromboplastin Time 30 Seconds (21-31); Prothrombin Time 12.4 Seconds (9.0-12.0)
[2024-03-13] MEDS: METOPROLOL TARTRATE 1 MG/ML VIAL IV STA (06:22)
[2024-03-13] MEDS: METOPROLOL TARTRATE 25 MG TAB PO ONE (06:29)
--- NOTE | 2024-03-13 06:44 | Communication Note ---
Date of Service: March 13, 2024 Notified by nursing of increase HR to 120s/130s at ~0615. Afib with RVR. Pt sleeping, asymptomatic. Blood pressure 130/90. Home metoprolol/diltiazem on hold as he is NPO and was hypotensive on presentation. Will give 2.5mg IV Lopressor as blood pressure adequate at present.
--- NOTE | 2024-03-13 10:52 | Surgery Progress Note ---
Date of Service March 13, 2024 Assessment & Plan (1) Acute perforated appendicitis: Plan: responding to abx for complicated appendicitis begin clears afib/RVR- per cards con't IV abx Admission and Anticipated Discharge Date Admission Date: March 11, 2024 Subjective pain about the same no N/V Review of Systems Constitutional: no fever and no chills Respiratory: no cough and no dyspnea Cardiovascular: no chest pain Gastrointestinal: + abdominal pain; no nausea and no vomit ing Neurologic: no localized weakness Psychiatric: no behavioral changes Physical Exam Constitutional: WD/WN, vitals as above Neck: trachea midline Respiratory: normal respiratory effort, lungs clear to auscultation Cardiovascular: Rate/Rhythm: + tachycardic and + irregularly irregular Gastrointestinal (Abdomen): Inspection/Auscultation: abdomen normal to inspection and normal bowel sounds; abdomen not distended Percussion/Palpation: + abdomen tender (minimal) and abdomen soft; no guarding and abdomen not rigid Musculoskeletal: Head/Neck/Chest: normocephalic and head atraumatic Skin: no rashes, warm and dry Results & Data Vital Signs (Past 12 Hours) Vital Signs Temp Pulse Resp BP O2 Del Method 03/13/24 07:04 120 H 03/13/24 07:00 Room Air 03/13/24 06:28 111 H 136/85 03/13/24 06:22 120 H 135/109 H 03/13/24 06:00 36.8 C 123 H 22 03/13/24 05:54 135/109 H 03/13/24 05:54 135/109 H 03/13/24 05:54 135/109 H 03/13/24 05:54 36.8 C 122 H 21 03/13/24 05:33 36.8 C 125 H 21 03/13/24 05:15 36.8 C 113 H 21 03/13/24 04:33 36.8 C 109 H 22 03/13/24 04:00 36.7 C 110 H 18 03/13/24 04:00 137/93 03/13/24 04:00 137/93 03/13/24 04:00 137/93 03/13/24 03:30 36.7 C 104 H 9 L 03/13/24 03:12 36.7 C 104 H 15 03/13/24 02:00 36.7 C 92 H 17 03/13/24 01:30 36.7 C 88 17 03/13/24 01:09 36.7 C 87 16 03/13/24 00:30 36.7 C 91 H 17 03/13/24 00:03 36.6 C 90 18 03/13/24 00:00 122/83 03/12/24 23:54 36.6 C 87 25 H 03/12/24 23:30 36.5 C 91 H 19 03/12/24 23:03 36.5 C 92 H 18 03/12/24 23:00 109/81 03/12/24 23:00 109/81 03/12/24 22:57 36.4 C L 93 H 18
[2024-03-13] MEDS: METOPROLOL TARTRATE 1 MG/ML VIAL IV SCH (11:19)
--- NOTE | 2024-03-13 11:52 | Hospitalist Progress Note ---
Date of Service March 13, 2024 Assessment & Plan (1) Sepsis: Plan: Septic shock secondary to ruptured appendicitis BP on arrival 60/42 which responded to fluid resuscitation, not requiring pressors. Blood pressures have improved With leukocytosis, elevated procalcitonin, acute kidney injury, and occasional tachypnea with ruptured appendicitis as the source of sepsis. Lactate normal, afebrile CT A/P with moderate Phlegmonous process at expected location of appendix with multiple small air fluid levels and free mesenteric gas c/w locally perforated appendicitis. No drainable fluid collection Surgery consult appreciated-because there is no peritoneal signs or free perforation and no abscess to drain, there is no indication for emergency surgery. Continue IV antibiotics with IV Zosyn Surgery has started the patient on a clear liquid diet. Will resume p.o. 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 UA with trace protein, 1+ blood, 11-20 RBCs, 11-20 hyaline casts Secondary to ATN from septic shock in the setting of taking spironolactone and losartan at home Nonoliguric and is now making plenty of urine, Jarquin catheter in place Creatinine improved. Down to 4.3 today. BUN down to 85. Not acidotic anymore. Nephrology on board Holding home losartan and spironolactone Was given IV calcium for hypocalcemia, holding home calcitriol Renally dose medications Support blood pressure with IV fluids and pressors if needed (3) Appendicitis: Plan: Presented with pain in RLQ, diarrhea, nausea, vomiting x 2 weeks Plan noted as above (4) Atrial fibrillation, permanent: Plan: Rates have been uncontrolled overnight Now the patient has been started on clear liquid diet, I resumed metoprolol and diltiazem home dose Since the patient is moving away from needing surgery, the surgeon cleared the patient to resume Xarelto. Ordered. Will give IV Lopressor as needed (5) HTN (hypertension): Plan: Blood pressures stable today Resume home dose of metoprolol and diltiazem Continue to hold losartan and Aldactone due to acute kidney injury Plan Chronic medical problems: Dyslipidemia: Atorvastatin on hold while n.p.o.-May be resumed soon Prostate cancer: Active surveillance ongoing for low risk grade, F/U with Uro on Outpatient basis. Holding home finasteride and tamsulosin GERD-giving IV PPI Gout-no acute issues, holding home allopurinol Neuropathy-holding home gabapentin Dispo-continued stay on PCU telemetry DVT prophylaxis: Resume Xarelto Code status: Full code Admission and Anticipated Discharge Date Admission Date: March 11, 2024 Subjective Patient says that he is hungry. His abdominal pain is much improved compared to when he first came to the hospital. Overnight, his heart rate has been elevated. He was given a few doses of IV metoprolol. He denies any chest discomfort, palpitations, shortness of breath, dizziness. Review of Systems Review of Systems: All systems reviewed & are unremarkable except as noted in Subjective Physical Exam Physical Exam: General: Awake, conversant Heart: S1, S2/irregular rhythm fast rate, no murmur rubs or gallops Lungs: Clear to auscultation bilaterally. Normal effort Abdomen: Soft/nondistended. Mild tenderness to palpation in the right lower quadrant. No rebound, rigidity or guarding. No hepatosplenomegaly Extremities: No clubbing/cyanosis. No edema Behavior: Appropriate, cooperative Results & Data Results & Data Vital Signs (Past 12 Hours) Vital Signs Temp Pulse Resp BP O2 Del Method 03/13/24 11:31 129 H 137/101 H 03/13/24 11:19 127 H 154/92 H 03/13/24 07:04 120 H 03/13/24 07:00 Room Air 03/13/24 06:28 111 H 136/85 03/13/24 06:22 120 H 135/109 H 03/13/24 06:00 36.8 C 123 H 22 03/13/24 05:54 135/109 H 03/13/24 05:54 135/109 H 03/13/24 05:54 135/109 H 03/13/24 05:54 36.8 C 122 H 21 03/13/24 05:33 36.8 C 125 H 21 03/13/24 05:15 36.8 C 113 H 21 03/13/24 04:33 36.8 C 109 H 22 03/13/24 04:00 36.7 C 110 H 18 03/13/24 04:00 137/93 03/13/24 04:00 137/93 03/13/24 04:00 137/93 03/13/24 03:30 36.7 C 104 H 9 L 03/13/24 03:12 36.7 C 104 H 15 03/13/24 02:00 36.7 C 92 H 17 03/13/24 01:30 36.7 C 88 17 03/13/24 01:09 36.7 C 87 16 03/13/24 00:30 36.7 C 91 H 17 03/13/24 00:03 36.6 C 90 18 03/13/24 00:00 122/83 03/12/24 23:54 36.6 C 87 25 H PG Care Time/CCT Total # of Minutes Spent Total Time Spent with Patient: Total time spent is greater than 50% in coordination of care (as documented) at patient's floor/unit and/or counseling patient: Coding Level of Care Code 35448 SUB INP/OBS CARE 2MIN Diagnoses Sepsis A41.9 Acute kidney injury N17.9 Acute appendicitis with perforation and localized peritonitis, without abscess, unspecified whether gangrene present K35.32 Appendicitis type: acute appendicitis Acute appendicitis type: with localized peritonitis Appendicitis gangrene presence: unspecified whether gangrene present Appendicitis perforation presence: with perforation Appendicitis abscess presence: without abscess Atrial fibrillation, permanent I48.21 Primary hypertension I10 Hypertension type: primary hypertension (3) Appendicitis Appendicitis type: acute appendicitis Acute appendicitis type: with localized peritonitis Appendicitis gangrene presence: unspecified whether gangrene present Appendicitis perforation presence: with perforation Appendicitis abscess presence: without abscess Qualified Code(s): K35.32 - Acute appendicitis with perforation, localized peritonitis, and gangrene, without abscess (5) HTN (hypertension) Hypertension type: primary hypertension Qualified Code(s): I10 - Essential (primary) hypertension
[2024-03-13] MEDS: METOPROLOL SUCC 50MG EXT REL TAB PO SCH (12:27)
[2024-03-13] MEDS: RIVAROXABAN 15 MG TAB PO SCH (12:27)
[2024-03-13] MEDS: dilTIAZem HCL 240 MG CAPCR PO SCH (12:27)
--- NOTE | 2024-03-13 13:20 | Electrocardiogram Report ---
Test Reason : Blood Pressure : */* mmHG Vent. Rate : 62 BPM Atrial Rate : * BPM P-R Int : * ms QRS Dur : 78 ms QT Int : 408 ms P-R-T Axes : * -19 -2 degrees QTcB Int : 414 ms Atrial fibrillation Abnormal ECG When compared with ECG of 19-Dec-2022 18:32, No significant change was found Confirmed by Cipriano Crhistensen ([id number]) on 03/13/2024 1:19:46 PM Referred By: REFERRED SELF Confirmed By: Cipriano Christensen
--- NOTE | 2024-03-13 16:54 | Nephrology Progress Note ---
Date of Service March 13, 2024 Assessment & Plan (1) Acute kidney injury: Plan: Non-oliguric. Creatinine downtrending. Electrolytes normal. There is no immediate indication for [employer]CH[employer]. Continue IVF to encourage positive fluid balance. Medications are appropriately dosed for kidney dysfunction. Continue to hold spironolactone and losartan. (2) Metabolic acidosis: Plan: Improved with replacement. NaHCO3 gtt switched to plasmalyte. (3) Acute perforated appendicitis: Plan: No indication for surgical intervention at this time. (4) Sepsis: Plan: Remains on Zosyn. Blood cultures NGTD. (5) Chronic kidney disease, stage III (moderate): Plan: CKD IIIb A1-2. 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 Atrophic right kidney. Follows with Dr. Walker. Baseline creatinine ~2.0 mg/dL. (6) Secondary hyperparathyroidism: Plan: Restart calcitriol 0.25 mcg daily tomorrow AM. (7) Prostate cancer: (8) Atrial fibrillation, permanent: Admission and Anticipated Discharge Date Admission Date: March 11, 2024 Subjective No acute events overnight. Erik was resting comfortably in bed. No fevers or chills. Noted afib with RVR overnight. Denies chest pains or palpitations. No shortness of breath. Reports some bloating. Erik reports a liquid bowel movement with urgency today. He was incontinent of stool. He denies melena or hematochezia. Tolerating clear liquids. Review of Systems Review of Systems: All systems reviewed & are unremarkable except as noted in HPI & below Physical Exam Constitutional: well developed and + morbidly obese; no acute distress Eyes: + anicteric sclerae; no conjunctival abn ormality ENMT: Mouth: no oral mucosal abnormality and oral mucous membranes not dry Neck: normal visual inspection, trachea midline and + thick neck Respiratory: normal respiratory effort Auscultation: lungs clear to auscultation bilaterally and + diminished lung sounds Cardiovascular: Rate/Rhythm: regular rate Heart Sounds: normal S1 and normal S2 Extremities: no edema Musculoskeletal: Extremities: no cyanosis and no clubbing Skin: normal turgor; no jaundice Neurologic: Motor/Sensory: no tremor and no asterixis Psychiatric: Orientation: alert and oriented x 3 Results & Data Vital Signs (Past 12 Hours) Vital Signs Temp Pulse Resp BP Pulse Ox O2 Del Method 03/13/24 16:15 36.3 C L 106 H 16 95 Room Air 03/13/24 16:00 96 H 03/13/24 16:00 136/97 03/13/24 16:00 36.6 C 03/13/24 15:45 36.4 C L 101 H 19 03/13/24 14:00 149/103 H 03/13/24 14:00 149/103 H 03/13/24 14:00 36.6 C 115 H 20 03/13/24 13:00 137/93 03/13/24 12:45 36.8 C 126 H 17 03/13/24 12:21 36.8 C 147 H 20 03/13/24 12:00 123/80 03/13/24 11:45 36.8 C 138 H 21 95 Room Air 03/13/24 11:31 137/101 H 03/13/24 11:31 129 H 137/101 H 03/13/24 11:27 36.7 C 118 H 21 03/13/24 11:19 127 H 154/92 H 03/13/24 11:09 36.7 C 123 H 18 03/13/24 10:12 36.6 C 121 H 12 03/13/24 09:03 36.7 C 129 H 22 03/13/24 08:03 36.7 C 121 H 23 95 Room Air 03/13/24 08:00 150/98 H 03/13/24 07:39 36.8 C 130 H 20 03/13/24 07:12 36.8 C 121 H 19 03/13/24 07:04 120 H 03/13/24 07:00 Room Air 03/13/24 06:28 111 H 136/85 03/13/24 06:27 136/85 03/13/24 06:27 36.9 C 108 H 18 03/13/24 06:22 120 H 135/109 H 03/13/24 06:00 36.8 C 123 H 22 03/13/24 05:54 135/109 H 03/13/24 05:54 135/109 H 03/13/24 05:54 135/109 H 03/13/24 05:54 36.8 C 122 H 21 03/13/24 05:33 36.8 C 125 H 21 03/13/24 05:15 36.8 C 113 H 21 Laboratory Results Laboratory Results - last 24 hr 03/12/24 03/12/24 03/13/24 16:46 17:59 04:04 WBC 9.19 RBC 6.09 Hgb 12.8 L Hct 40.8 L MCV 67.0 L MCH 21.0 L MCHC 31.4 L RDW Std Deviation 34.8 L RDW Coeff of Aram 15.1 H Plt Count 266 MPV 11.7 Immature Gran % (Auto) 1.0 Neut % (Auto) 69.6 Lymph % (Auto) 17.8 [place] % (Auto) 9.8 Eos % (Auto) 1.3 Baso % (Auto) 0.5 Neut # (Auto) 6.39 Lymph # (Auto) 1.64 [place] # (Auto) 0.90 H Eos # (Auto) 0.12 Baso # (Auto) 0.05 Immature Gran # (Auto) 0.09 Polychromasia 2+ Microcytosis Present Tear Drop Cells 1+ Ovalocytes 1+ PT 12.4 H INR 1.2 H APTT 30 PTT Ratio 1.1 Sodium 141 145 Potassium 4.7 4.5 Chloride 111 H 111 H Carbon Dioxide 23 26 Anion Gap 7 8 BUN 102 H 85 H Creatinine 4.78 H* D 4.30 H D Est Cr Clr Drug Dosing 20.0 22.0 eGFR 13.10 14.87 BUN/Creatinine Ratio 21.3 H 19.8 Glucose 108 H 73 POC Glucose 102 H Calcium 8.9 8.6 Phosphorus 4.1 Magnesium 2.0 PG Care Time/CCT Total # of Minutes Spent Total Time Spent with Patient: Total time spent is greater than 50% in coordination of care (as documented) at patient's floor/unit and/or counseling patient: Coding Level of Care Code 92892 SUB INP/OBS CARE 3/50MIN Diagnoses Acute kidney injury N17.9 Metabolic acidosis E87.20 Acute perforated appendicitis K35.32 Sepsis A41.9 Chronic kidney disease, stage III (moderate) N18.3 Secondary hyperparathyroidism N25.81 Prostate cancer C61 Atrial fibrillation, permanent I48.21
[2024-03-14 05:07] LABS: Basophils # (auto) 0.06 K/uL (0.00-0.20); Basophils % (auto) 0.8 %; Eosinophils # (auto) 0.19 K/uL (0.00-0.50); Eosinophils % (auto) 2.4 %; Hematocrit (blood only) 39.8 % (42.0-52.0); Hemoglobin 12.3 g/dl (14.0-18.0); Immature Granulocytes # (auto) 0.11 K/uL (0.01-0.20); Immature Granulocytes % (auto) 1.4 %; Lymphocytes # (auto) 1.72 K/uL (1.20-3.40); Lymphocytes % (auto) 21.6 %; Mean Corpuscular Hemoglobin 20.9 pg (25.0-34.0); Mean Corpuscular Hgb Conc 30.9 g/dL (32.0-36.0); Mean Corpuscular Volume 67.7 fL (80.0-100.0); Monocytes # (auto) 0.81 K/uL (0.11-0.59); Monocytes % (auto) 10.2 %; Neutrophils # (auto) 5.07 K/uL (1.40-6.50); Neutrophils % (auto) 63.6 %; RDW Coefficient of Variation 14.6 % (11.5-14.5); RDW Standard Deviation 34.6 fL (36.4-46.3); Red Blood Count 5.88 M/uL (4.70-6.10); White Blood Count 7.96 K/ul (4.8-10.8)
[2024-03-14 05:18] LABS: BUN Creatinine Ratio 19.3 (10-20); Calcium 8.8 mg/dl (8.6-10.3); Creatinine Clr Calc Pharmacy 34.5 ml/min
[2024-03-14 05:52] LABS: Mean Platelet Volume 10.4 fL (9.4-12.4); Microcytosis Present; Ovalocytes 1+; Platelet Count 255 K/uL (130-400); Tear Drop Cells 1+
[2024-03-14] MEDS: CALCITRIOL 0.25 MCG CAPSULE PO SCH (09:07)
--- NOTE | 2024-03-14 10:39 | Surgery Progress Note ---
Date of Service March 14, 2024 Assessment & Plan (1) Acute perforated appendicitis: Plan: responding well to IV abx con't clear liquid diet diarrhea unlikely related to appendicitis Admission and Anticipated Discharge Date Admission Date: March 11, 2024 Subjective pain improved having diarrhea afebrile WBC nL Review of Systems Constitutional: no fever and no chills Respiratory: no cough and no dyspnea Cardiovascular: no chest pain Gastrointestinal: + abdominal pain and + diarrhea/loose st ools; no nausea and no vomiting Neurologic: no localized weakness Psychiatric: no behavioral changes Physical Exam Constitutional: WD/WN, vitals as above Respiratory: normal respiratory effort, lungs clear to auscultation Cardiovascular: RRR, no murmur, no edema Gastrointestinal (Abdomen): Inspection/Auscultation: abdomen normal to inspection and normal bowel sounds; abdomen not distended Percussio n/Palpation: + abdomen tender and abdomen soft; no guarding and abdomen not rigid Musculoskeletal: Head/Neck/Chest: normocephalic and head atraumatic Skin: no rashes, warm and dry Results & Data Vital Signs (Past 12 Hours) Vital Signs Temp Pulse Pulse Resp BP Pulse Ox O2 Del Method 03/14/24 10:33 94 H 03/14/24 08:21 36.6 C 91 H 29 H 150/90 H 94 Room Air 03/14/24 05:39 36.5 C 92 H 22 164/107 H 95 Room Air 03/14/24 03:43 36.5 C 97 H 16 141/97 H 97 Room Air 03/14/24 00:00 96 H 03/13/24 23:22 146/110 H 03/13/24 23:12 36.4 C L 91 H 20 176/115 H 97 Room Air
[2024-03-14] MEDS: PIPERACILLIN/TAZOBACTAM 4.5 GM/100 ML BAG IV SCH (11:46)
--- NOTE | 2024-03-14 13:27 | Hospitalist Progress Note ---
Date of Service March 14, 2024 Assessment & Plan (1) Sepsis: Plan: Septic shock secondary to ruptured appendicitis BP on arrival 60/42 which responded to fluid resuscitation, not requiring pressors. Blood pressures have improved With leukocytosis, elevated procalcitonin, acute kidney injury, and occasional tachypnea with ruptured appendicitis as the source of sepsis. Lactate normal, afebrile CT A/P with moderate Phlegmonous process at expected location of appendix with multiple small air fluid levels and free mesenteric gas c/w locally perforated appendicitis. No drainable fluid collection Surgery consult appreciated-because there is no peritoneal signs or free perforation and no abscess to drain, there is no indication for emergency surgery. Continue IV antibiotics with IV Zosyn Surgery has started the patient on a clear liquid diet. Resumed p.o. 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 UA with trace protein, 1+ blood, 11-20 RBCs, 11-20 hyaline casts Secondary to ATN from septic shock in the setting of taking spironolactone and losartan at home Nonoliguric and is now making plenty of urine, Jarquin catheter in place Creatinine improved. Down to 2.7 today. Not acidotic anymore. Nephrology on board Holding home losartan and spironolactone Was given IV calcium for hypocalcemia, holding home calcitriol Renally dose medications Support blood pressure with IV fluids (3) Diarrhea: Plan: Patient started having a diarrhea on 03/13 soon after he was started with clear liquid diet Check C. difficile Start IV fluids gently (4) Appendicitis: Plan: Presented with pain in RLQ, diarrhea, nausea, vomiting x 2 weeks Plan noted as above (5) Atrial fibrillation, permanent: Plan: Rate controlled on home metoprolol and diltiazem Xarelto resumed (6) HTN (hypertension): Plan: Blood pressures stable today Resumed home dose of metoprolol and diltiazem Continue to hold losartan and Aldactone due to acute kidney injury Plan Chronic medical problems: Dyslipidemia: Atorvastatin on hold while n.p.o.-May be resumed soon Prostate cancer: Active surveillance ongoing for low risk grade, F/U with Uro on Outpatient basis. Holding home finasteride and tamsulosin GERD-giving IV PPI Gout-no acute issues, holding home allopurinol Neuropathy-holding home gabapentin Dispo-continued stay on PCU telemetry DVT prophylaxis: Resume Xarelto Code status: Full code Admission and Anticipated Discharge Date Admission Date: March 11, 2024 Subjective Patient was seen and examined at 10:15 AM. He says that he started having a diarrhea yesterday ever since he started a clear liquid diet. Has had several episodes. Feels tired because of recurrent bowel movements. Review of Systems Review of Systems: All systems reviewed & are unremarkable except as noted in Subjective Physical Exam Physical Exam: General: Awake, conversant Heart: S1, S2/irregular rhythm fast rate, no murmur rubs or gallops Lungs: Clear to auscultation bilaterally. Normal effort Abdomen: Soft/nondistended. No tenderness. Hyperactive bowel sounds. No hepatosplenomegaly Extremities: No clubbing/cyanosis. No edema Behavior: Appropriate, cooperative Results & Data Results & Data Vital Signs (Past 12 Hours) Vital Signs Temp Pulse Pulse Resp BP Pulse Ox O2 Del Method 03/14/24 11:57 36.3 C L 87 17 142/93 H 96 Room Air 03/14/24 10:33 94 H 03/14/24 08:21 36.6 C 91 H 29 H 150/90 H 94 Room Air 03/14/24 05:39 36.5 C 92 H 22 164/107 H 95 Room Air 03/14/24 03:43 36.5 C 97 H 16 141/97 H 97 Room Air Laboratory Results Abnormal lab results 03/14/24 Range/Units 04:27 Hgb 12.3 L (14.0-18.0) g/dl Hct 39.8 L (42.0-52.0) % MCV 67.7 L (80.0-100.0) fL MCH 20.9 L (25.0-34.0) pg MCHC 30.9 L (32.0-36.0) g/dL RDW Std Deviation 34.6 L (36.4-46.3) fL RDW Coeff of Aram 14.6 H (11.5-14.5) % [place] # (Auto) 0.81 H (0.11-0.59) K/uL BUN 53 H D (6-23) mg/dl Creatinine 2.74 H D (0.6-1.4) mg/dl Glucose 111 H (70-99(Fasting)) mg/dl PG Care Time/CCT Total # of Minutes Spent Total Time Spent with Patient: Total time spent is greater than 50% in coordination of care (as documented) at patient's floor/unit and/or counseling patient: Coding Level of Care Code 87312 SUB INP/OBS CARE 2/35MIN Diagnoses Sepsis A41.9 Acute kidney injury N17.9 Diarrhea R19.7 Acute appendicitis with perforation and localized peritonitis, without abscess, unspecified whether gangrene present K35.32 Appendicitis type: acute appendicitis Acute appendicitis type: with localized peritonitis Appendicitis gangrene presence: unspecified whether gangrene present Appendicitis perforation presence: with perforation Appendicitis abscess presence: without abscess Atrial fibrillation, permanent I48.21 Primary hypertension I10 Hypertension type: primary hypertension (4) Appendicitis Appendicitis type: acute appendicitis Acute appendicitis type: with localized peritonitis Appendicitis gangrene presence: unspecified whether gangrene present Appendicitis perforation presence: with perforation Appendicitis abscess presence: without abscess Qualified Code(s): K35.32 - Acute appendicitis with perforation, localized peritonitis, and gangrene, without abscess (6) HTN (hypertension) Hypertension type: primary hypertension Qualified Code(s): I10 - Essential (primary) hypertension
[2024-03-14] MEDS: SODIUM CHLORIDE 0.9% 1,000 ML IV SCH (14:06)
--- NOTE | 2024-03-14 14:19 | Nephrology Progress Note ---
Date of Service March 14, 2024 Assessment & Plan (1) Acute kidney injury: Plan: Non-oliguric. Creatinine downtrending. Electrolytes normal. There is no indication for [employer]. Jarquin may be removed. Continue IVF to encourage positive fluid balance. 0.9% saline infusing at 80 ml/hr. Medications are appropriately dosed for kidney dysfunction. Continue to hold spironolactone and losartan. (2) Acute perforated appendicitis: Plan: Responding well to conservative care. No surgical indication at this time. (3) Sepsis: Plan: Remains on Zosyn. Blood cultures NGTD. (4) Chronic kidney disease, stage III (moderate): Plan: CKD IIIb A1-2. 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 Atrophic right kidney. Follows with Dr. Walker. Baseline creatinine ~2.0 mg/dL. (5) Secondary hyperparathyroidism: Plan: Calcitriol 0.25 mcg daily. (6) Prostate cancer: (7) Atrial fibrillation, permanent: Admission and Anticipated Discharge Date Admission Date: March 11, 2024 Subjective No acute events overnight. Several loose, water bowel movements noted. No melena or hematochezia. Erik denies abdominal pain. No fevers or chills. Increased urine output. Review of Systems Review of Systems: All systems reviewed & are unremarkable except as noted in HPI & below Physical Exam Constitutional: well developed; no acute distress Eyes: + anicteric sclerae; no conjunctival abn ormality ENMT: Mouth: no oral mucosal abnormality and oral mucous membranes not dry Neck: normal visual inspection and trachea midline Respiratory: normal respiratory effort Auscultation: lungs clear to auscultation bilaterally Cardiovascular: Rate/Rhythm: regular rate Heart Sounds: normal S1 and normal S2 Extremities: no edema Musculoskeletal: Extremities: no cyanosis and no clubbing Skin: normal turgor; no jaundice Neurologic: Motor/Sensory: no tremor and no asterixis Psychiatric: Orientation: alert and oriented x 3 Results & Data Vital Signs (Past 12 Hours) Vital Signs Temp Pulse Pulse Resp BP Pulse Ox O2 Del Method 03/14/24 11:57 36.3 C L 87 17 142/93 H 96 Room Air 03/14/24 10:33 94 H 03/14/24 08:21 36.6 C 91 H 29 H 150/90 H 94 Room Air 03/14/24 05:39 36.5 C 92 H 22 164/107 H 95 Room Air 03/14/24 03:43 36.5 C 97 H 16 141/97 H 97 Room Air Laboratory Results Laboratory Results - last 24 hr 03/14/24 03/14/24 04:27 Unknown WBC 7.96 RBC 5.88 Hgb 12.3 L Hct 39.8 L MCV 67.7 L MCH 20.9 L MCHC 30.9 L RDW Std Deviation 34.6 L RDW Coeff of Aram 14.6 H Plt Count 255 MPV 10.4 Immature Gran % (Auto) 1.4 Neut % (Auto) 63.6 Lymph % (Auto) 21.6 [place] % (Auto) 10.2 Eos % (Auto) 2.4 Baso % (Auto) 0.8 Neut # (Auto) 5.07 Lymph # (Auto) 1.72 [place] # (Auto) 0.81 H Eos # (Auto) 0.19 Baso # (Auto) 0.06 Immature Gran # (Auto) 0.11 Microcytosis Present Tear Drop Cells 1+ Ovalocytes 1+ Sodium 141 Potassium 5.0 Chloride 107 Carbon Dioxide 28 Anion Gap 6 BUN 53 H D Creatinine 2.74 H D Est Cr Clr Drug Dosing 34.5 eGFR 25.55 BUN/Creatinine Ratio 19.3 Glucose 111 H Calcium 8.8 Stl C. diff Tox B Gene Pending PG Care Time/CCT Total # of Minutes Spent Total Time Spent with Patient: Total time spent is greater than 50% in coordination of care (as documented) at patient's floor/unit and/or counseling patient: Coding Level of Care Code 63355 SUB INP/OBS CARE 3/50MIN Diagnoses Acute kidney injury N17.9 Acute perforated appendicitis K35.32 Sepsis A41.9 Chronic kidney disease, stage III (moderate) N18.3 Secondary hyperparathyroidism N25.81 Prostate cancer C61 Atrial fibrillation, permanent I48.21
[2024-03-14] MEDS: LOPERAMIDE HCL 2 MG CAP PO PRN (16:16)
[2024-03-15 07:37] LABS: Basophils # (auto) 0.05 K/uL (0.00-0.20); Basophils % (auto) 0.8 %; Eosinophils # (auto) 0.25 K/uL (0.00-0.50); Eosinophils % (auto) 3.9 %; Hematocrit (blood only) 39.3 % (42.0-52.0); Immature Granulocytes # (auto) 0.13 K/uL (0.01-0.20); Lymphocytes # (auto) 1.74 K/uL (1.20-3.40); Lymphocytes % (auto) 26.9 %; Mean Corpuscular Hgb Conc 30.5 g/dL (32.0-36.0); Mean Corpuscular Volume 68.8 fL (80.0-100.0); Monocytes % (auto) 9.3 %; Neutrophils % (auto) 57.1 %; RDW Coefficient of Variation 14.8 % (11.5-14.5); RDW Standard Deviation 35.9 fL (36.4-46.3); Red Blood Count 5.71 M/uL (4.70-6.10); White Blood Count 6.47 K/ul (4.8-10.8)
[2024-03-15 07:40] LABS: Mean Platelet Volume 10.9 fL (9.4-12.4); Platelet Count 255 K/uL (130-400)
[2024-03-15 07:54] LABS: Calcium 8.9 mg/dl (8.6-10.3); Potassium 4.7 mmol/L (3.5-5.1)
[2024-03-15 08:01] LABS: BUN Creatinine Ratio 15.1 (10-20); Creatinine Clr Calc Pharmacy 49.1 ml/min
[2024-03-15 08:05] LABS: Microcytosis Present; Ovalocytes 1+; Polychromasia 1+; Tear Drop Cells 1+
--- NOTE | 2024-03-15 11:12 | Surgery Progress Note ---
Date of Service March 15, 2024 Assessment & Plan (1) Acute perforated appendicitis: Plan: responding to IV abx advance to fulls good progress Admission and Anticipated Discharge Date Admission Date: March 11, 2024 Subjective minimal pain taking po well afebrile WBC nL Review of Systems Constitutional: no fever and no chills Respiratory: no cough and no dyspnea Cardiovascular: no chest pain Gastrointestinal: + abdominal pain (minimal); no nausea an d no vomiting Neurologic: no localized weakness Psychiatric: no behavioral changes Results & Data Vital Signs (Past 12 Hours) Vital Signs Temp Pulse Resp BP Pulse Ox O2 Del Method 03/15/24 08:15 36.7 C 84 20 97 Room Air 03/15/24 08:10 142/91 H 03/15/24 03:28 36.4 C L 94 H 18 144/110 H 94 Room Air
--- NOTE | 2024-03-15 12:24 | Hospitalist Progress Note ---
Date of Service March 15, 2024 Assessment & Plan (1) Sepsis: Plan: Septic shock secondary to ruptured appendicitis BP on arrival 60/42 which responded to fluid resuscitation, not requiring pressors. Blood pressures have improved With leukocytosis, elevated procalcitonin, acute kidney injury, and occasional tachypnea with ruptured appendicitis as the source of sepsis. Lactate normal, afebrile CT A/P with moderate Phlegmonous process at expected location of appendix with multiple small air fluid levels and free mesenteric gas c/w locally perforated appendicitis. No drainable fluid collection Surgery consult appreciated-because there is no peritoneal signs or free perforation and no abscess to drain, there is no indication for emergency surgery. Continue IV antibiotics with IV Zosyn Patient has been tolerating a clear liquid diet, except for having diarrhea. 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 UA with trace protein, 1+ blood, 11-20 RBCs, 11-20 hyaline casts Secondary to ATN from septic shock in the setting of taking spironolactone and losartan at home Nonoliguric and is now making plenty of urine, Jarquin catheter in place Creatinine improved. Down to 2.1 today. Not acidotic anymore. Nephrology on board Holding home losartan and spironolactone Renally dose medications Encouraged to drink p.o. fluids (3) Diarrhea: Plan: Patient started having a diarrhea on 03/13 soon after he was started with clear liquid diet C. difficile negative Renal function continues to improve despite diarrhea Encourage p.o. fluid intake Could be related to antibiotics but C. difficile has been ruled out (4) Appendicitis: Plan: Presented with pain in RLQ, diarrhea, nausea, vomiting x 2 weeks Plan noted as above (5) Atrial fibrillation, permanent: Plan: Rate controlled on home metoprolol and diltiazem Xarelto resumed (6) HTN (hypertension): Plan: Blood pressures elevated today Resumed home dose of metoprolol and diltiazem Continue to hold losartan and Aldactone due to acute kidney injury Added hydralazine for blood pressure control. May be able to resume his losartan and Aldactone soon. Plan Chronic medical problems: Dyslipidemia: Atorvastatin on hold while n.p.o.-May be resumed soon Prostate cancer: Active surveillance ongoing for low risk grade, F/U with Uro on Outpatient basis. Resume finasteride and tamsulosin GERD-giving IV PPI Gout-no acute issues, holding home allopurinol Neuropathy-holding home gabapentin Dispo-continued stay on PCU telemetry DVT prophylaxis: Resumed Xarelto Code status: Full code Admission and Anticipated Discharge Date Admission Date: March 11, 2024 Subjective Patient was seen and examined at 9:50 AM. Patient says that his diarrhea has slowed down. He wishes to advance his diet. Review of Systems Review of Systems: All systems reviewed & are unremarkable except as noted in Subjective Physical Exam Physical Exam: General: Awake, conversant Heart: S1, S2/irregular rhythm fast rate, no murmur rubs or gallops Lungs: Clear to auscultation bilaterally. Normal effort Abdomen: Soft/nondistended. No tenderness. Hyperactive bowel sounds. No hep atosplenomegaly Extremities: No clubbing/cyanosis. No edema Behavior: Appropriate, cooperative Results & Data Results & Data Vital Signs (Past 12 Hours) Vital Signs Temp Pulse Resp BP BP Pulse Ox O2 Del Method 03/15/24 11:30 36.3 C L 124 H 155/109 H 96 Room Air 03/15/24 08:15 36.7 C 84 20 97 Room Air 03/15/24 08:10 142/91 H 03/15/24 03:28 36.4 C L 94 H 18 144/110 H 94 Room Air Laboratory Results Abnormal lab results 03/15/24 Range/Units 07:13 Hgb 12.0 L (14.0-18.0) g/dl Hct 39.3 L (42.0-52.0) % MCV 68.8 L (80.0-100.0) fL MCH 21.0 L (25.0-34.0) pg MCHC 30.5 L (32.0-36.0) g/dL RDW Std Deviation 35.9 L (36.4-46.3) fL RDW Coeff of Aram 14.8 H (11.5-14.5) % [place] # (Auto) 0.60 H (0.11-0.59) K/uL Chloride 112 H (98-107) mmol/L BUN 32 H D (6-23) mg/dl Creatinine 2.12 H D (0.6-1.4) mg/dl PG Care Time/CCT Total # of Minutes Spent Total Time Spent with Patient: Total time spent is greater than 50% in coordination of care (as documented) at patient's floor/unit and/or counseling patient: Coding Level of Care Code 24677 SUB INP/OBS CARE 2/35MIN Diagnoses Sepsis A41.9 Acute kidney injury N17.9 Diarrhea R19.7 Acute appendicitis with perforation and localized peritonitis, without abscess, unspecified whether gangrene present K35.32 Appendicitis type: acute appendicitis Acute appendicitis type: with localized peritonitis Appendicitis gangrene presence: unspecified whether gangrene present Appendicitis perforation presence: with perforation Appendicitis abscess presence: without abscess Atrial fibrillation, permanent I48.21 Primary hypertension I10 Hypertension type: primary hypertension (4) Appendicitis Appendicitis type: acute appendicitis Acute appendicitis type: with localized peritonitis Appendicitis gangrene presence: unspecified whether gangrene present Appendicitis perforation presence: with perforation Appendicitis abscess presence: without abscess Qualified Code(s): K35.32 - Acute appendicitis with perforation, localized peritonitis, and gangrene, without abscess (6) HTN (hypertension) Hypertension type: primary hypertension Qualified Code(s): I10 - Essential (primary) hypertension
[2024-03-15] MEDS: hydrALAZINE HCL 25 MG TAB PO STA (12:26)
--- NOTE | 2024-03-15 13:11 | Nephrology Progress Note ---
Date of Service March 15, 2024 Assessment & Plan (1) Acute kidney injury: Plan: Non-oliguric. Creatinine downtrending. Electrolytes normal. 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 Continue IVF to encourage even to slightly positive fluid balance. 0.9% saline infusing at 80 ml/hr. Medications are appropriately dosed for kidney dysfunction. Continue to hold spironolactone and losartan. (2) Acute perforated appendicitis: Plan: Responding well to conservative care. No surgical indication at this time. (3) Sepsis: Plan: Remains on Zosyn. Blood cultures NGTD. (4) Chronic kidney disease, stage III (moderate): Plan: CKD IIIb A1-2. 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 Atrophic right kidney. Follows with Dr. Walker. Baseline creatinine ~2.0 mg/dL. (5) Secondary hyperparathyroidism: Plan: Calcitriol 0.25 mcg daily. (6) Prostate cancer: (7) Atrial fibrillation, permanent: Admission and Anticipated Discharge Date Admission Date: March 11, 2024 Subjective No acute events overnight. Erik reports feeling "cold" today. He states that he had shaking chills when he was out from under his covers. He denies rigors otherwise. He denies abdominal pain. Frequent watery stool persists. No melena or hematochezia. Review of Systems Review of Systems: All systems reviewed & are unremarkable except as noted in HPI & below Physical Exam Constitutional: well developed and + morbidly obese; no acute distress Eyes: + anicteric sclerae; no conjunctival abn ormality ENMT: Mouth: no oral mucosal abnormality and oral mucous membranes not dry Neck: normal visual inspection, trachea midline and + thick neck Respiratory: normal respiratory effort Auscultation: lungs clear to auscultation bilaterally and + diminished lung sounds Cardiovascular: Rate/Rhythm: regular rate Heart Sounds: normal S1 and normal S2 Extremities: no edema Musculoskeletal: Extremities: no cyanosis and no clubbing Skin: normal turgor; no jaundice Neurologic: Motor/Sensory: no tremor and no asterixis Psychiatric: Orientation: alert and oriented x 3 Results & Data Vital Signs (Past 12 Hours) Vital Signs Temp Pulse Resp BP BP Pulse Ox O2 Del Method 03/15/24 11:30 36.3 C L 124 H 155/109 H 96 Room Air 03/15/24 08:15 36.7 C 84 20 97 Room Air 03/15/24 08:10 142/91 H 03/15/24 03:28 36.4 C L 94 H 18 144/110 H 94 Room Air Laboratory Results Laboratory Results - last 24 hr 03/14/24 03/15/24 Unknown 07:13 WBC 6.47 RBC 5.71 Hgb 12.0 L Hct 39.3 L MCV 68.8 L MCH 21.0 L MCHC 30.5 L RDW Std Deviation 35.9 L RDW Coeff of Aram 14.8 H Plt Count 255 MPV 10.9 Immature Gran % (Auto) 2.0 Neut % (Auto) 57.1 Lymph % (Auto) 26.9 [place] % (Auto) 9.3 Eos % (Auto) 3.9 Baso % (Auto) 0.8 Neut # (Auto) 3.70 Lymph # (Auto) 1.74 [place] # (Auto) 0.60 H Eos # (Auto) 0.25 Baso # (Auto) 0.05 Immature Gran # (Auto) 0.13 Polychromasia 1+ Microcytosis Present Tear Drop Cells 1+ Ovalocytes 1+ Sodium 143 Potassium 4.7 Chloride 112 H Carbon Dioxide 24 Anion Gap 7 BUN 32 H D Creatinine 2.12 H D Est Cr Clr Drug Dosing 49.1 eGFR 34.75 BUN/Creatinine Ratio 15.1 Glucose 83 Calcium 8.9 Stl C. diff Tox B Gene Negative Cdiff Gene PG Care Time/CCT Total # of Minutes Spent Total Time Spent with Patient: Total time spent is greater than 50% in coordination of care (as documented) at patient's floor/unit and/or counseling patient: Coding Level of Care Code 10024 SUB INP/OBS CARE 3/50MIN Diagnoses Acute kidney injury N17.9 Acute perforated appendicitis K35.32 Sepsis A41.9 Chronic kidney disease, stage III (moderate) N18.3 Secondary hyperparathyroidism N25.81 Prostate cancer C61 Atrial fibrillation, permanent I48.21
[2024-03-15] MEDS: TAMSULOSIN HCL 0.4 MG CAP PO SCH (20:02)
[2024-03-15] MEDS: ONDANSETRON INJ 2 MG/ML 2 ML VIAL IV PRN (23:20)
[2024-03-16 07:15] LABS: Calcium 8.9 mg/dl (8.6-10.3); Creatinine Clr Calc Pharmacy 51.7 ml/min; Potassium 4.9 mmol/L (3.5-5.1)
[2024-03-16] MEDS: ATORVASTATIN 40 MG TAB PO SCH (09:02)
[2024-03-16] MEDS: FINASTERIDE 5 MG TAB PO SCH (09:02)
--- NOTE | 2024-03-16 09:25 | Hospitalist Progress Note ---
Date of Service March 16, 2024 Assessment & Plan (1) Sepsis: Plan: Septic shock secondary to ruptured appendicitis BP on arrival 60/42 which responded to fluid resuscitation, not requiring pressors. Blood pressures have improved With leukocytosis, elevated procalcitonin, acute kidney injury, and occasional tachypnea with ruptured appendicitis as the source of sepsis. Lactate normal, afebrile CT A/P with moderate Phlegmonous process at expected location of appendix with multiple small air fluid levels and free mesenteric gas c/w locally perforated appendicitis. No drainable fluid collection Surgery consult appreciated-because there is no peritoneal signs or free perforation and no abscess to drain, there is no indication for emergency surgery. Continue IV antibiotics with IV Zosyn. Patient is improving clinically. Patient has been tolerating a full liquid diet, except for having diarrhea. 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 UA with trace protein, 1+ blood, 11-20 RBCs, 11-20 hyaline casts Secondary to ATN from septic shock in the setting of taking spironolactone and losartan at home Creatinine improved. Down to 2 today. This is her baseline. Nephrology on board Holding home losartan and spironolactone Renally dose medications Encouraged to drink p.o. fluids (3) Diarrhea: Plan: Patient started having a diarrhea on 03/13 soon after he was started with clear liquid diet C. difficile negative Renal function continues to improve despite diarrhea Encourage p.o. fluid intake Could be related to antibiotics but C. difficile has been ruled out Related to appendicitis? Monitor (4) Appendicitis: Plan: Presented with pain in RLQ, diarrhea, nausea, vomiting x 2 weeks Plan noted as above (5) Atrial fibrillation, permanent: Plan: Rate controlled on home metoprolol and diltiazem Xarelto resumed (6) HTN (hypertension): Plan: Blood pressures elevated today Resumed home dose of metoprolol and diltiazem Continue to hold losartan and Aldactone due to acute kidney injury. May resume tomorrow Added hydralazine for blood pressure control. May be able to resume his losartan and Aldactone soon Plan Chronic medical problems: Dyslipidemia: Resumed atorvastatin Prostate cancer: Active surveillance ongoing for low risk grade, F/U with Uro on Outpatient basis. Resume finasteride and tamsulosin GERD-giving IV PPI Gout-no acute issues, holding home allopurinol Neuropathy-holding home gabapentin Dispo-continued stay on PCU telemetry DVT prophylaxis: Resumed Xarelto Code status: Full code Admission and Anticipated Discharge Date Admission Date: March 11, 2024 Subjective Patient was seen and examined at 8:40 AM. He says that his diarrhea has slowed down a little bit but he is still going. Review of Systems Review of Systems: All systems reviewed & are unremarkable except as noted in Subjective Physical Exam Physical Exam: General: Awake, conversant Heart: S1, S2/irregular rhythm fast rate, no murmur rubs or gallops Lungs: Clear to auscultation bilaterally. Normal effort Abdomen: Soft/nondistended. No tenderness. Hyperactive bowel sounds. No hepatosplenomegaly Extremities: No clubbing/cyanosis. No edema Behavior: Appropriate, cooperative Results & Data Results & Data Vital Signs (Past 12 Hours) Vital Signs Temp Pulse Resp BP Pulse Ox O2 Del Method 03/16/24 07:53 Room Air 03/16/24 07:00 36.7 C 82 18 142/103 H 95 Room Air 03/16/24 04:00 36.9 C 72 20 153/111 H 94 Room Air 03/15/24 23:20 36.8 C 93 H 18 152/100 H 97 Room Air Laboratory Results Abnormal lab results 03/16/24 Range/Units 06:03 Chloride 115 H (98-107) mmol/L Creatinine 2.00 H (0.6-1.4) mg/dl PG Care Time/CCT Total # of Minutes Spent Total Time Spent with Patient: Total time spent is greater than 50% in coordination of care (as documented) at patient's floor/unit and/or counseling patient: Coding Level of Care Code 72957 SUB INP/OBS CARE 235MIN Diagnoses Sepsis A41.9 Acute kidney injury N17.9 Diarrhea R19.7 Acute appendicitis with perforation and localized peritonitis, without abscess, unspecified whether gangrene present K35.32 Appendicitis type: acute appendicitis Acute appendicitis type: with localized peritonitis Appendicitis gangrene presence: unspecified whether gangrene present Appendicitis perforation presence: with perforation Appendicitis abscess presence: without abscess Atrial fibrillation, permanent I48.21 Primary hypertension I10 Hypertension type: primary hypertension (4) Appendicitis Appendicitis type: acute appendicitis Acute appendicitis type: with localized peritonitis Appendicitis gangrene presence: unspecified whether gangrene present Appendicitis perforation presence: with perforation Appendicitis abscess presence: without abscess Qualified Code(s): K35.32 - Acute appendicitis with perforation, localized peritonitis, and gangrene, without abscess (6) HTN (hypertension) Hypertension type: primary hypertension Qualified Code(s): I10 - Essential (primary) hypertension
--- NOTE | 2024-03-16 10:10 | Nephrology Progress Note ---
Date of Service March 16, 2024 Assessment & Plan (1) Acute kidney injury: Plan: Non-oliguric. Creatinine has returned to baseline. Electrolytes normal. There is no indication for [employer]. Medications are appropriately dosed for kidney dysfunction. Continue to hold spironolactone and losartan for now. (2) Acute perforated appendicitis: Plan: Responding well to conservative care. No surgical indication at this time. (3) Sepsis: Plan: Remains on Zosyn. Blood cultures NGTD. (4) Chronic kidney disease, stage III (moderate): Plan: CKD IIIb A1-2. 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 Atrophic right kidney. Follows with Dr. Walker. Baseline creatinine ~2.0 mg/dL. (5) Secondary hyperparathyroidism: Plan: Calcitriol 0.25 mcg daily. (6) Prostate cancer: (7) Atrial fibrillation, permanent: Admission and Anticipated Discharge Date Admission Date: March 11, 2024 Subjective No acute events overnight. Diarrhea improving. No fevers or chills. Denies abdominal pain. Review of Systems Review of Systems: All systems reviewed & are unremarkable except as noted in HPI & below Physical Exam Constitutional: well developed and + morbidly obese; no acute distress Eyes: + anicteric sclerae; no conjunctival abn ormality ENMT: Mouth: no oral mucosal abnormality and oral mucous membranes not dry Neck: normal visual inspection, trachea midline and + thick neck Respiratory: normal respiratory effort Auscultation: lungs clear to auscultation bilaterally and + diminished lung sounds Cardiovascular: Rate/Rhythm: regular rate Heart Sounds: normal S1 and normal S2 Extremities: no edema Musculoskeletal: Extremities: no cyanosis and no clubbing Skin: normal turgor; no jaundice Neurologic: Motor/Sensory: no tremor and no asterixis Psychiatric: Orientation: alert and oriented x 3 Results & Data Vital Signs (Past 12 Hours) Vital Signs Temp Pulse Resp BP Pulse Ox O2 Del Method 03/16/24 07:53 Room Air 03/16/24 07:00 36.7 C 82 18 142/103 H 95 Room Air 03/16/24 04:00 36.9 C 72 20 153/111 H 94 Room Air 03/15/24 23:20 36.8 C 93 H 18 152/100 H 97 Room Air Laboratory Results Laboratory Results - last 24 hr 03/16/24 06:03 Sodium 144 Potassium 4.9 Chloride 115 H Carbon Dioxide 22 Anion Gap 7 BUN 22 Creatinine 2.00 H Est Cr Clr Drug Dosing 51.7 eGFR 37.27 BUN/Creatinine Ratio 11.0 Glucose 78 Calcium 8.9 PG Care Time/CCT Total # of Minutes Spent Total Time Spent with Patient: Total time spent is greater than 50% in coordination of care (as documented) at patient's floor/unit and/or counseling patient: Coding Level of Care Code 40987 SUB INP/OBS CARE 3/50MIN Diagnoses Acute kidney injury N17.9 Acute perforated appendicitis K35.32 Sepsis A41.9 Chronic kidney disease, stage III (moderate) N18.3 Secondary hyperparathyroidism N25.81 Prostate cancer C61 Atrial fibrillation, permanent I48.21
--- NOTE | 2024-03-16 16:34 | Surgery Progress Note ---
Date of Service March 16, 2024 Assessment & Plan (1) Acute perforated appendicitis: Plan: Doing well/progressing nicely. Will likely advance him to a low residue diet tomorrow. Will need to discuss with primary service regarding outpatient antibiotic plans. [facility] 2 [facility] postdischarge Admission and Anticipated Discharge Date Admission Date: March 11, 2024 Subjective Patient seen. Continues to improve. Denies any true abdominal pain or nausea. Currently tolerating full liquids Physical Exam Constitutional: WD/WN, vitals as above no acute distress and not ill appearing Eyes: PERRL, conjunctivae normal, anicteric sclerae EOM intact bilaterally ENMT: external ear and nose normal, oropharynx normal Ears: no hearing impairment Neck: trachea midline, no thyromegaly Respiratory: normal respiratory effort; no respiratory distress and does not use accessory muscles Cardiovascular: Rate/Rhythm: regular rate and regular rhythm Gastrointestinal (Abdomen): Soft. Mild lower abdominal tenderness. No guarding rebound or rigidity Skin: no rashes, warm and dry Psychiatric: Orientation: alert, oriented x 3 and cooperative Results & Data Vital Signs (Past 12 Hours) Vital Signs Temp Pulse Resp BP Pulse Ox O2 Del Method 03/16/24 15:00 36.3 C L 90 20 116/82 93 Room Air 03/16/24 11:00 36.7 C 83 16 150/102 H 97 Room Air 03/16/24 07:53 Room Air 03/16/24 07:00 36.7 C 82 18 142/103 H 95 Room Air PG Care Time/CCT Total # of Minutes Spent Total Time Spent with Patient: Total time spent is greater than 50% in coordination of care (as documented) at patient's floor/unit and/or counseling patient: Coding Level of Care Code 43465 SUB INP/OBS CARE 05/09MIN Diagnoses Acute perforated appendicitis K35.32
[2024-03-17] MEDS: hydrALAZINE HCL 20 MG/ML VIAL IV ONE (02:18)
[2024-03-17] MEDS: CARBOHYDRATES FOR HYPOGLYCEMIA PO ONE (07:40)
[2024-03-17] MEDS: carvediloL 12.5 MG TAB PO SCH (08:12)
[2024-03-17 09:14] LABS: Basophils # (auto) 0.06 K/uL (0.00-0.20); Basophils % (auto) 0.8 %; Eosinophils # (auto) 0.16 K/uL (0.00-0.50); Eosinophils % (auto) 2.2 %; Hematocrit (blood only) 43.9 % (42.0-52.0); Hemoglobin 13.2 g/dl (14.0-18.0); Immature Granulocytes % (auto) 4.1 %; Lymphocytes # (auto) 1.74 K/uL (1.20-3.40); Mean Corpuscular Hemoglobin 21.1 pg (25.0-34.0); Mean Corpuscular Hgb Conc 30.1 g/dL (32.0-36.0); Mean Corpuscular Volume 70.2 fL (80.0-100.0); Monocytes % (auto) 5.5 %; Neutrophils # (auto) 4.58 K/uL (1.40-6.50); Neutrophils % (auto) 63.4 %; Nucleated RBC # (auto) 0.02 K/uL (0.00-0.12); Nucleated RBC % (auto) 0.3 %; Platelet Count 299 K/uL (130-400); RDW Standard Deviation 36.6 fL (36.4-46.3); Red Blood Count 6.25 M/uL (4.70-6.10); White Blood Count 7.24 K/ul (4.8-10.8)
[2024-03-17 09:46] LABS: BUN Creatinine Ratio 8.5 (10-20); Calcium 9.6 mg/dl (8.6-10.3); Creatinine Clr Calc Pharmacy 48.8 ml/min; Potassium 4.5 mmol/L (3.5-5.1)
--- NOTE | 2024-03-17 10:21 | Nephrology Progress Note ---
Date of Service March 17, 2024 Assessment & Plan (1) Acute kidney injury: Plan: Non-oliguric. Creatinine has returned to baseline. Electrolytes normal. Medications are appropriately dosed for kidney dysfunction. Continue to hold losartan for now. Spironolactone may be restarted as needed. No additional nephrology recommendations at this time. I will follow labs peripherally, please call with questions or concerns. (2) Acute perforated appendicitis: Plan: Responding well to conservative care. No surgical indication at this time. (3) Sepsis: Plan: Remains on Zosyn. Blood cultures negative. (4) Chronic kidney disease, stage III (moderate): Plan: CKD IIIb A1-2. 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 Atrophic right kidney. Follows with Dr. Walker. Baseline creatinine ~2.0 mg/dL. (5) Secondary hyperparathyroidism: Plan: Calcitriol 0.25 mcg daily. (6) Prostate cancer: (7) Atrial fibrillation, permanent: Admission and Anticipated Discharge Date Admission Date: March 11, 2024 Subjective No acute events overnight. Erik reports some decreased appetite. Diarrhea improving but loose bowel movements with urgency persist. He denies abdominal pain. He is experiencing some nausea. He reports feeling cold last night and some cold intolerance. He denies any shaking chills. No fevers. Overall, he feels well. HR slightly elevated. No chest pains or palpitations. Some mild persistent lower extremity edema but otherwise no significant fluid retention or edema. Review of Systems Review of Systems: All systems reviewed & are unremarkable except as noted in HPI & below Physical Exam Constitutional: well developed and + morbidly obese; no acute distress Eyes: + anicteric sclerae; no conjunctival abn ormality ENMT: Mouth: no oral mucosal abnormality and oral mucous membranes not dry Neck: normal visual inspection and trachea midline Respiratory: normal respiratory effort Auscultation: lungs clear to auscultation bilaterally and + diminished lung sounds Cardiovascular: Rate/Rhythm: + tachycardic and + irregularly irregular Heart Sounds: normal S1 and normal S2 Extremities: no edema Musculoskeletal: Extremities: no cyanosis and no clubbing Skin: normal turgor; no jaundice Neurologic: Motor/Sensory: no tremor and no asterixis Psychiatric: Orientation: alert and oriented x 3 Results & Data Vital Signs (Past 12 Hours) Vital Signs Temp Pulse Resp BP Pulse Ox O2 Del Method 03/17/24 07:29 36.6 C 105 H 14 151/104 H 99 Room Air 03/17/24 03:30 36.5 C 83 20 169/118 H 97 Room Air 03/17/24 02:00 163/118 H 03/16/24 23:03 36.8 C 77 18 174/126 H 94 Room Air Laboratory Results Laboratory Results - last 24 hr 03/17/24 03/17/24 03/17/24 07:34 07:57 08:46 WBC 7.24 RBC 6.25 H Hgb 13.2 L Hct 43.9 MCV 70.2 L MCH 21.1 L MCHC 30.1 L RDW Std Deviation 36.6 RDW Coeff of Aram 16.0 H Plt Count 299 MPV 11.0 Immature Gran % (Auto) 4.1 Neut % (Auto) 63.4 Lymph % (Auto) 24.0 [place] % (Auto) 5.5 Eos % (Auto) 2.2 Baso % (Auto) 0.8 Neut # (Auto) 4.58 Lymph # (Auto) 1.74 [place] # (Auto) 0.40 Eos # (Auto) 0.16 Baso # (Auto) 0.06 Immature Gran # (Auto) 0.30 H Absolute Nucleated RBC 0.02 Nucleated RBC % (auto) 0.3 Sodium 141 Potassium 4.5 Chloride 109 H Carbon Dioxide 26 Anion Gap 6 BUN 18 Creatinine 2.12 H Est Cr Clr Drug Dosing 48.8 eGFR 34.75 BUN/Creatinine Ratio 8.5 L Glucose 116 H POC Glucose 64 L* 82 Calcium 9.6 Magnesium 1.4 L PG Care Time/CCT Total # of Minutes Spent Total Time Spent with Patient: Total time spent is greater than 50% in coordination of care (as documented) at patient's floor/unit and/or counseling patient: Coding Level of Care Code 92673 SUB INP/OBS CARE 3/50MIN Diagnoses Acute kidney injury N17.9 Acute perforated appendicitis K35.32 Sepsis A41.9 Chronic kidney disease, stage III (moderate) N18.3 Secondary hyperparathyroidism N25.81 Prostate cancer C61 Atrial fibrillation, permanent I48.21
--- NOTE | 2024-03-17 10:24 | Surgery Progress Note ---
Date of Service March 17, 2024 Assessment & Plan (1) Acute perforated appendicitis: Plan: Patient here w/ perforated appendicitis being managed non-operatively at this time WBC 7. He is afebrile, HRs 100s and some HTN noted; nephrology following He is tolerating full liquid diet without issues, feels hungry for more. + small BM Abdomen soft and non tender Will see how he fairs with diet, if well can consider dispo soon on course of PO abx and f/u with [facility] in 1-2 weeks Admission and Anticipated Discharge Date Admission Date: March 11, 2024 Subjective Patient reports feeling better. He is tolerating full liquids. Reports a small BM this AM, but not much associated gas. Some burping and mild nausea that have been present now and not preventing him from eating. Voiding but feels like he is not completely emptying Physical Exam Physical Exam: awake/alert, no distress sitting in a chair Respiratory: normal respiratory effort Gastrointestinal (Abdomen): Percussion/Palpation: abdomen soft; abdomen nontender Results & Data Vital Signs (Past 12 Hours) Vital Signs Temp Pulse Resp BP Pulse Ox O2 Del Method 03/17/24 07:29 97.9 F 105 H 14 151/104 H 99 Room Air 03/17/24 03:30 97.7 F 83 20 169/118 H 97 Room Air 03/17/24 02:00 163/118 H 03/16/24 23:03 98.2 F 77 18 174/126 H 94 Room Air PG Care Time/CCT Total # of Minutes Spent Total Time Spent with Patient: Total time spent is greater than 50% in coordination of care (as documented) at patient's floor/unit and/or counseling patient: Coding Level of Care Code 34827 SUB INP/OBS CARE 25MIN Diagnoses Acute perforated appendicitis K35.32
--- NOTE | 2024-03-17 12:24 | Hospitalist Progress Note ---
Date of Service March 17, 2024 Assessment & Plan (1) Acute perforated appendicitis: (2) H/O TIA (transient ischemic attack) and stroke: (3) Atrial fibrillation, permanent: (4) HTN (hypertension): (5) Dyslipidemia: (6) Chronic kidney disease, stage III (moderate): (7) Secondary hyperparathyroidism: (8) Neoplasm of prostate: Plan 63-year-old male with past medical history of TIA/CVA, atrial fibrillation on anticoagulation with Xarelto, hypertension, hyperlipidemia, CKD stage III, secondary hyperparathyroidism, obesity, prostate cancer who was referred from urgent care for low blood pressure, weakness and fatigue along with abdominal pain and was found to be septic secondary to perforated appendicitis requiring admission to the ICU #Sepsis, present on admission secondary to perforated appendicitis #Perforated appendicitis CT A/P with moderate Phlegmonous process at expected location of appendix with multiple small air fluid levels and free mesenteric gas c/w locally perforated appendicitis. No drainable fluid collection Patient was hypotensive and in VALERI on admission requiring ICU stay Blood cultures have been negative to date Surgery is following the patient Plan is nonoperative with conservative management per surgery Continue IV Zosyn (day 4) Surgery has advance diet to low residue diet Patient will need follow-up with Dr. Farhat Zuluaga from surgery on discharge #VALERI superimposed on CKD stage III #Hypomagnesemia #Secondary hyperparathyroidism Outpatient capsule inspector Dr. Farhat Walker Baseline creatinine is around 2.2 VALERI likely in the setting of sepsis Nephrology is following the patient Avoid nephrotoxic agents including NSAIDs Losartan on hold per nephrology recommendations Renal function is close to baseline Await further nephrology recommendations Magnesium replacement Continue Calcitrol 0.25 mcg p.o. daily Monitor renal function and electrolytes #History of TIA/CVA #Essential hypertension #Hyperlipidemia #Atrial fibrillation Patient follows up with Raji Albarran PA-C from [facility] cardiology No current echo on file, last echo is from July 07, 2019 Check current echo Patient is on anticoagulation with Xarelto He was seen by neurology as outpatient by Dr. Casarez and recommended continuing Xarelto no need for aspirin Continue statin Change Toprol-XL to carvedilol 25 mg p.o. twice daily for better blood pressure control and for rate control Increase Cardizem CD to 300 mg p.o. daily for better blood pressure control Continue Xarelto Monitor vital signs #Obesity BMI is 44.6 Check A1c Lifestyle counseling regarding diet, exercise and weight loss provided #Prostate cancer Diagnosed in September [address] Jenaro Tamez Continue Flomax 0.4 mg p.o. twice daily and finasteride 5 mg p.o. daily Patient follows up with urology outpatient with 6 monthly PSAs CODE STATUS: Full code DVT prophylaxis: Patient on Xarelto PT has recommended home health on discharge: Patient agreeable to home health Discharge planning Home with home health likely in the next 48 hours based on surgical recommendations and transitioning to oral antibiotics Care plan discussed with patient Admission and Anticipated Discharge Date Admission Date: March 11, 2024 Subjective Patient seen and examined Labs reviewed Telemetry reviewed Patient states he ate chicken and macaroni and cheese for lunch, denies any nausea or vomiting. Feels fullness in his abdomen but believes it was from eating food too quickly. He denies any abdominal pain. He is passing gas He is ambulating to the bathroom with a walker. He denies any chest pain, shortness of breath, dizziness, lightheadedness Denies any fever or chills Social history: Lives by himself. Physical Exam Physical Exam: General: No acute distress Psych: Awake and alert, oriented to place and person HEENT: Anicteric sclera, moist oral mucosa CVS: irregular rate and rhythm Lungs: Bilateral air entry, no wheezing noted Abdomen: Soft, nontender, no rebound, no guarding Ext: trace extremity edema, no calf tenderness Neuro: No focal motor deficits noted Results & Data Results & Data Vital Signs (Past 12 Hours) Vital Signs Temp Pulse Resp BP Pulse Ox O2 Del Method 03/17/24 11:44 36.5 C 102 H 18 141/98 H 95 Room Air 03/17/24 07:29 36.6 C 105 H 14 151/104 H 99 Room Air 03/17/24 03:30 36.5 C 83 20 169/118 H 97 Room Air 03/17/24 02:00 163/118 H Laboratory Results Laboratory Results - last 24 hr 03/17/24 03/17/24 03/17/24 07:34 07:57 08:46 WBC 7.24 RBC 6.25 H Hgb 13.2 L Hct 43.9 MCV 70.2 L MCH 21.1 L MCHC 30.1 L RDW Std Deviation 36.6 RDW Coeff of Aram 16.0 H Plt Count 299 MPV 11.0 Immature Gran % (Auto) 4.1 Neut % (Auto) 63.4 Lymph % (Auto) 24.0 [place] % (Auto) 5.5 Eos % (Auto) 2.2 Baso % (Auto) 0.8 Neut # (Auto) 4.58 Lymph # (Auto) 1.74 [place] # (Auto) 0.40 Eos # (Auto) 0.16 Baso # (Auto) 0.06 Immature Gran # (Auto) 0.30 H Absolute Nucleated RBC 0.02 Nucleated RBC % (auto) 0.3 Sodium 141 Potassium 4.5 Chloride 109 H Carbon Dioxide 26 Anion Gap 6 BUN 18 Creatinine 2.12 H Est Cr Clr Drug Dosing 48.8 eGFR 34.75 BUN/Creatinine Ratio 8.5 L Glucose 116 H POC Glucose 64 L* 82 Calcium 9.6 Magnesium 1.4 L PG Care Time/CCT Total # of Minutes Spent Total Time Spent with Patient: Total time spent is greater than 50% in coordination of care (as documented) at patient's floor/unit and/or counseling patient: Coding Level of Care Code 26735 SUB INP/OBS CARE 3/50MIN Diagnoses Acute perforated appendicitis K35.32 H/O TIA (transient ischemic attack) and stroke Z86.73 Atrial fibrillation, permanent I48.21 Primary hypertension I10 Hypertension type: primary hypertension Dyslipidemia E78.5 Chronic kidney disease, stage III (moderate) N18.3 Secondary hyperparathyroidism N25.81 Neoplasm of prostate D49.59 (4) HTN (hypertension) Hypertension type: primary hypertension Qualified Code(s): I10 - Essential (primary) hypertension
[2024-03-17] MEDS: MAGNESIUM SULFATE / D5W 1 GM/100 ML BAG IV SCH (13:33)
[2024-03-17] MEDS: dilTIAZem HCl 60 MG TAB PO ONE (14:48)
--- NOTE | 2024-03-17 15:18 | XCELERA ---
[id number] [id number]
[2024-03-17] MEDS: carvediloL 25 MG TAB PO SCH (17:35)
[2024-03-17] MEDS: MAGNESIUM OXIDE 400 MG TAB PO SCH (20:08)
[2024-03-18 08:04] LABS: Estimated Average Glucose 137 mg/dl; Hemoglobin A1C 6.4 % (4.5-5.6)
[2024-03-18 08:09] LABS: Hematocrit (blood only) 41.8 % (42.0-52.0); Hemoglobin 12.6 g/dl (14.0-18.0); Mean Corpuscular Hemoglobin 21.1 pg (25.0-34.0); Mean Corpuscular Hgb Conc 30.1 g/dL (32.0-36.0); Mean Corpuscular Volume 69.9 fL (80.0-100.0); Mean Platelet Volume 10.6 fL (9.4-12.4); Platelet Count 257 K/uL (130-400); RDW Coefficient of Variation 16.2 % (11.5-14.5); RDW Standard Deviation 36.5 fL (36.4-46.3); Red Blood Count 5.98 M/uL (4.70-6.10); White Blood Count 8.64 K/ul (4.8-10.8)
[2024-03-18 08:24] LABS: BUN Creatinine Ratio 7.8 (10-20); Calcium 9.4 mg/dl (8.6-10.3); Creatinine Clr Calc Pharmacy 47.5 ml/min; Magnesium 1.7 mg/dl (1.7-2.4); Potassium 4.7 mmol/L (3.5-5.1)
[2024-03-18] MEDS: dilTIAZem HCL 300 MG CAPCR PO SCH (08:24)
[2024-03-18] MEDS: MAGNESIUM OXIDE 400 MG TAB PO SCH (09:20)
[2024-03-18] MEDS: MAGNESIUM SULFATE / D5W 1 GM/100 ML BAG IV SCH (09:21)
--- NOTE | 2024-03-18 09:58 | Surgery Progress Note ---
Date of Service March 18, 2024 Assessment & Plan (1) Acute perforated appendicitis: Plan: Doing well. Okay from our standpoint for discharge. He will need home antibiotics for 2 weeks. Follow-up with Dr. Zuluaga in the office in 1 to 2 weeks Admission and Anticipated Discharge Date Admission Date: March 11, 2024 Subjective Patient seen. Tolerating regular diet. Overall doing well from the abdominal standpoint. Physical Exam Constitutional: WD/WN, vitals as above no acute distress and not ill appearing Eyes: PERRL, conjunctivae normal, anicteric sclerae EOM intact bilaterally ENMT: external ear and nose normal, oropharynx normal Ears: no hearing impairment Neck: trachea midline, no thyromegaly Respiratory: normal respiratory effort; no respiratory distress and does not use accessory muscles Cardiovascular: Rate/Rhythm: regular rate and regular rhythm Gastrointestinal (Abdomen): Soft. Mild lower abdominal tenderness. No guarding rebound or rigidity. Overall much improved from admission Skin: no rashes, warm and dry Psychiatric: Orientation: alert, oriented x 3 and cooperative Results & Data Vital Signs (Past 12 Hours) Vital Signs Temp Pulse Resp BP Pulse Ox O2 Del Method 03/18/24 08:52 36.4 C L 90 18 142/102 H 99 Room Air 03/18/24 04:40 149/110 H 03/18/24 03:22 36.8 C 76 18 150/117 H 96 Room Air 03/17/24 23:50 149/102 H 03/17/24 23:16 36.8 C 77 18 151/116 H 95 Room Air PG Care Time/CCT Total # of Minutes Spent Total Time Spent with Patient: Total time spent is greater than 50% in coordination of care (as documented) at patient's floor/unit and/or counseling patient: Coding Level of Care Code 43455 SUB INP/OBS CARE 05/09MIN Diagnoses Acute perforated appendicitis K35.32
--- NOTE | 2024-03-18 10:06 | Hospitalist Progress Note ---
Date of Service March 18, 2024 Assessment & Plan (1) Acute perforated appendicitis: (2) H/O TIA (transient ischemic attack) and stroke: (3) Atrial fibrillation, permanent: (4) HTN (hypertension): (5) Dyslipidemia: (6) Chronic kidney disease, stage III (moderate): (7) Secondary hyperparathyroidism: (8) Neoplasm of prostate: (9) Pre-diabetes: Plan 63-year-old male with past medical history of TIA/CVA, atrial fibrillation on anticoagulation with Xarelto, hypertension, hyperlipidemia, CKD stage III, secondary hyperparathyroidism, obesity, prostate cancer who was referred from urgent care for low blood pressure, weakness and fatigue along with abdominal pain and was found to be septic secondary to perforated appendicitis requiring admission to the ICU #Sepsis, present on admission secondary to perforated appendicitis #Perforated appendicitis CT A/P with moderate Phlegmonous process at expected location of appendix with multiple small air fluid levels and free mesenteric gas c/w locally perforated appendicitis. No drainable fluid collection Patient was hypotensive and in VALERI on admission requiring ICU stay Blood cultures have been negative to date Surgery is following the patient Plan is nonoperative with conservative management per surgery Surgery has advance diet to low residue diet Patient will need follow-up with Dr. Farhat Zuluaga from surgery on discharge As per surgery, patient will need 2 weeks total of antibiotics: He is currently on IV Zosyn (day 5): Will switch to oral Augmentin 875 mg p.o. twice daily for 9 more days to finish a total of 14 days #VALERI superimposed on CKD stage III #Hypomagnesemia #Secondary hyperparathyroidism Outpatient director special education Dr. Farhat Walker Baseline creatinine is around 2.2 VALERI likely in the setting of sepsis Nephrology is following the patient Avoid nephrotoxic agents including NSAIDs Losartan on hold per nephrology recommendations Renal function is close to baseline I spoke with director special education Dr. Jean Turpin today regarding losartan and spironolactone: From his point of view okay to hold medications for now and for patient to follow-up with Dr. Walker as outpatient Magnesium replacement Continue Calcitrol 0.25 mcg p.o. daily Monitor renal function and electrolytes #History of TIA/CVA #Essential hypertension #Hyperlipidemia #Atrial fibrillation Patient follows up with Raji Albarran PA-C from [facility] cardiology Echo from 03/17/2024 shows left ventricular systolic function is normal, no regional wall motion abnormalities, there is mild concentric LVH, EF is 60 to 65%, mild tricuspid regurgitation. Patient is on anticoagulation with Xarelto He was seen by neurology as outpatient by Dr. Casarez and recommended continuing Xarelto no need for aspirin Continue statin Continue carvedilol 25 mg p.o. twice daily for better blood pressure control and for rate control Continue Cardizem CD to 300 mg p.o. daily for better blood pressure control Continue Xarelto Monitor vital signs #Obesity #Prediabetes BMI is 44.6 A1c 6.4 Lifestyle counseling regarding diet, exercise and weight loss provided Patient requesting dietitian consult for diet advice #Prostate cancer Diagnosed in September [address] Jenaro Tamez Continue Flomax 0.4 mg p.o. twice daily and finasteride 5 mg p.o. daily Patient follows up with urology outpatient with 6 monthly PSAs CODE STATUS: Full code DVT prophylaxis: Patient on Xarelto PT has recommended home health on discharge: Patient agreeable to home health Discharge planning Home with home health tomorrow if medically stable and blood pressure under better control Care plan discussed with patient, nursing staff, and patient's cousin Bria updated on the phone with patient's permission Admission and Anticipated Discharge Date Admission Date: March 11, 2024 Subjective Patient seen and examined Labs reviewed Telemetry reviewed Sitting in a chair, denies any nausea, vomiting, diarrhea, abdominal pain Tolerating oral diet Blood pressure still elevated Spoke with patient's cousin Bria with patient's permission on the phone in the room and updated her Patient is agreeable to home health Physical Exam Physical Exam: General: No acute distress Psych: Awake and alert, oriented to place and person HEENT: Anicteric sclera, moist oral mucosa CVS: irregular rate and rhythm Lungs: Bilateral air entry, no wheezing noted Abdomen: Soft, nontender, no rebound, no guarding Ext: trace extremity edema, no calf tenderness Results & Data Results & Data Vital Signs (Past 12 Hours) Vital Signs Temp Pulse Resp BP Pulse Ox O2 Del Method 03/18/24 08:52 36.4 C L 90 18 142/102 H 99 Room Air 03/18/24 04:40 149/110 H 03/18/24 03:22 36.8 C 76 18 150/117 H 96 Room Air 03/17/24 23:50 149/102 H 03/17/24 23:16 36.8 C 77 18 151/116 H 95 Room Air Laboratory Results Laboratory Results - last 24 hr 03/18/24 03/18/24 07:37 07:47 WBC 8.64 RBC 5.98 Hgb 12.6 L Hct 41.8 L MCV 69.9 L MCH 21.1 L MCHC 30.1 L RDW Std Deviation 36.5 RDW Coeff of Aram 16.2 H Plt Count 257 MPV 10.6 Sodium 140 Potassium 4.7 Chloride 108 H Carbon Dioxide 26 Anion Gap 6 BUN 17 Creatinine 2.18 H Est Cr Clr Drug Dosing 47.5 eGFR 33.61 BUN/Creatinine Ratio 7.8 L Glucose 84 POC Glucose 73 Estimat Average Glucose 137 Hemoglobin A1c 6.4 H Calcium 9.4 Magnesium 1.7 PG Care Time/CCT Total # of Minutes Spent Total Time Spent with Patient: Total time spent is greater than 50% in coordination of care (as documented) at patient's floor/unit and/or counseling patient: Coding Level of Care Code 40282 SUB INP/OBS CARE 2/35MIN Diagnoses Acute perforated appendicitis K35.32 H/O TIA (transient ischemic attack) and stroke Z86.73 Atrial fibrillation, permanent I48.21 Primary hypertension I10 Hypertension type: primary hypertension Dyslipidemia E78.5 Chronic kidney disease, stage III (moderate) N18.3 Secondary hyperparathyroidism N25.81 Neoplasm of prostate D49.59 Pre-diabetes R73.03 (4) HTN (hypertension) Hypertension type: primary hypertension Qualified Code(s): I10 - Essential (primary) hypertension
[2024-03-18] MEDS: AMOXICILLIN/CLAVULANATE 875 MG TAB PO SCH (16:35)
[2024-03-19] MEDS: PANTOprazole 40 MG TAB PO SCH (05:56)
[2024-03-19 08:23] VITALS: RESP 20; TEMP 98.6; O2SAT 97
--- NOTE | 2024-03-19 11:15 | Discharge Summary ---
Discharge Summary Date of Service March 19, 2024 Principal Dx & Hospital Course #1 = Principal Diagnosis (1) Acute perforated appendicitis: (2) H/O TIA (transient ischemic attack) and stroke: (3) Atrial fibrillation, permanent: (4) HTN (hypertension): (5) Dyslipidemia: (6) Chronic kidney disease, stage III (moderate): (7) Secondary hyperparathyroidism: (8) Neoplasm of prostate: (9) Pre-diabetes: Plan 63-year-old male with past medical history of TIA/CVA, atrial fibrillation on anticoagulation with Xarelto, hypertension, hyperlipidemia, CKD stage III, secondary hyperparathyroidism, obesity, prostate cancer who was referred from urgent care for low blood pressure, weakness and fatigue along with abdominal pain and was found to be septic secondary to perforated appendicitis requiring admission to the ICU #Sepsis, present on admission secondary to perforated appendicitis #Perforated appendicitis CT A/P with moderate Phlegmonous process at expected location of appendix with multiple small air fluid levels and free mesenteric gas c/w locally perforated appendicitis. No drainable fluid collection Patient was hypotensive and in VALERI on admission requiring ICU stay Blood cultures have been negative to date Surgery is following the patient Plan is nonoperative with conservative management per surgery Surgery has advance diet to low residue diet Patient will need follow-up with Dr. Farhat Zuluaga from surgery on discharge As per surgery, patient will need 2 weeks total of antibiotics: He was initially treated with IV Zosyn and has been switched to oral Augmentin 875 mg p.o. twice daily for 10 more days to finish a total of 14 days of antibiotic therapy Patient is tolerating oral diet without any nausea vomiting or abdominal pain #VALERI superimposed on CKD stage III #Secondary hyperparathyroidism Outpatient institutional cook Dr. Farhat Walker Baseline creatinine is around 2.2 VALERI likely in the setting of sepsis Nephrology is following the patient Avoid nephrotoxic agents including NSAIDs Losartan on hold per nephrology recommendations Renal function is close to baseline I spoke with institutional cook Dr. Jean Turpin on 03/18/24 regarding losartan and sona nolactone: From his point of view okay to hold medications for now and for patient to follow-up with Dr. Walker as outpatient Continue Calcitrol 0.25 mcg p.o. daily Monitor renal function and electrolytes #History of TIA/CVA #Essential hypertension #Hyperlipidemia #Atrial fibrillation Patient follows up with Raji Albarran PA-C from [facility] cardiology Echo from 03/17/2024 shows left ventricular systolic function is normal, no regional wall motion abnormalities, there is mild concentric LVH, EF is 60 to 65%, mild tricuspid regurgitation. Patient is on anticoagulation with Xarelto He was seen by neurology as outpatient by Dr. Casarez and recommended continuing Xarelto no need for aspirin Continue statin Continue carvedilol 25 mg p.o. twice daily for better blood pressure control and for rate control Continue Cardizem CD to 300 mg p.o. daily for better blood pressure control Continue Xarelto #Obesity #Prediabetes BMI is 44.6 A1c 6.4 Lifestyle counseling regarding diet, exercise and weight loss provided Patient also met with a dietitian who gave him leaflets to read Outpatient follow-up with PCP #Prostate cancer Diagnosed in September [address] Jenaro Tamez Continue Flomax 0.4 mg p.o. twice daily and finasteride 5 mg p.o. daily Patient follows up with urology outpatient with 6 monthly PSAs Patient seen and examined today. He is tolerating oral diet without any nausea vomiting or abdominal pain. He has been cleared by surgery for discharge. I have gone over the discharge care plan, medications and follow-up with the patient in great detail and answered all his questions This discharge took greater than 30 minutes to coordinate Discharge Exam General: No acute distress Psych: Awake and alert, oriented to place and person HEENT: Anicteric sclera, moist oral mucosa CVS: irregular rate and rhythm Lungs: Bilateral air entry, no wheezing noted Abdomen: Soft, nontender, no rebound, no guarding Ext: trace extremity edema, no calf tenderness Discharge Plan Discharge Items Patient Disposition: Home - Home Health Services Reason For Visit: APPENDIX RUPTURE Discharge Diagnosis: #Perforated appendicitis #VALERI superimposed on CKD stage III #Hypomagnesemia #Secondary hyperparathyroidism #History of TIA/CVA #Essential hypertension #Hyperlipidemia #Atrial fibrillation #Obesity #Prediabetes #Prostate cancer Activity: As commented below Activity Comment: Activity as tolerated with assistance Bathing: No limitations Exercise Comment: light activity as you tolerate Non-emergency contact: Primary Care Provider and Surgeon Call non-emergency contact if: you have any medication questions, your symptoms worsen, your pain is not controlled, your pain is worsening and you have a fever Follow-up/Referrals: Farhat Walker MD [Physician] - Farhat Zuluaga MD [Physician] - (Please call to schedule follow up in clinic within 1-2 weeks) Diann Berrios [Primary Care Provider] - Diet: Carb Consistent or DM2, Heart Healthy and Low Fiber Addtl Attending Provider Instructions: DISCHARGE INSTRUCTION TO PATIENT/FAMILY: Follow-up with your primary care provider within 1 week regarding: Posthospital discharge, medication review, medication refills and follow-up on all your medical problems including hypertension, prediabetes, LABS Please take all your discharge medications, discharge information and discharge instructions to all your doctors appointments. Avoid all NSAIDs including ibuprofen, Motrin, Advil, Aleve, naproxen, meloxicam, Toradol, diclofenac You were diagnosed with a perforated appendix. You was seen by surgeon and you are currently on antibiotics for total of 2 weeks. Please complete your full course of oral antibiotics Augmentin and follow-up with your primary care doctor and surgeon Follow-up with surgeon Dr. Farhat Zuluaga in 1 to 2 weeks time for follow-up and to discuss appendectomy ideally before completing a course of antibiotics. Follow-up with your institutional cook Dr. Walker in 1 to 2 weeks time regarding chronic kidney disease stage III and advised on resuming losartan and spironolactone You have prediabetes: Your A1c is 6.4. Avoid high sugar content food including sodas and desserts/sweets. Labs through PCP in 1 week: CBC, CMP, MG Pending Studies at Discharge: No Stand-Alone Forms: My [facility] [email or web address], Smoking Cessation Medications and DC Order Prescriptions: New amoxicillin-pot clavulanate 875-125 mg Tablet 1 tab PO BIDM Qty: 20 0RF Rx Instructions: Take with food carvedilol 25 mg Tablet 25 mg PO BIDM Qty: 60 0RF Rx Instructions: Take twice a day with breakfast and dinner diltiazem HCl [Cardizem CD] 300 mg Capsule,Extended Release 24hr 300 mg PO DAILY Qty: 30 0RF Continued Xarelto 15 mg tablet 15 mg PO DAILY Qty: 30 11RF calcitriol 0.25 mcg capsule 0.25 mcg PO DAILY Qty: 90 3RF tamsulosin 0.4 mg capsule 0.4 mg PO BID Qty: 180 3RF finasteride 5 mg tablet 5 mg PO DAILY Qty: 90 3RF allopurinol 300 mg tablet 300 mg PO DAILY atorvastatin 80 mg tablet 80 mg PO DAILY Qty: 90 gabapentin 300 mg capsule 300 - 600 mg PO DAILY PRN (Reason: Pain) Qty: 90 multivitamin Tablet 1 tab PO DAILY ascorbic acid (vitamin C) [Vitamin C] 500 mg Tablet 1,500 mg PO DAILY omeprazole 20 mg capsule,delayed release(DR/EC) 20 mg PO DAILY Discontinued diltiazem HCl 240 mg capsule,extended release 24hr 240 mg PO DAILY Qty: 90 3RF losartan 100 mg tablet 100 mg PO DAILY metoprolol succinate 100 mg tablet extended release 24 hr 100 mg PO DAILY spironolactone 25 mg tablet 25 mg PO DAILY Discharge Orders: Discharge Order (Routine); Ordered 03/19/24 Ordered By: Jewel Jung/Other Patient Handouts: Prediabetes, 5 Steps for Eating Healthier Admission Data Admit Date/Time: 03/11/24 19:29 Attending Provider: Jewel Lorenzo Admit Provider: Tricia Bach Primary Care Provider: Diann Berrios Other Providers: Farhat Zuluaga; Jean Turpin; Td Be; [facility] Hospital Stay Data Consultations 03/11/24 18:20 Consult General Surgery Stat Consult Nephrology Stat ED Decision to Admit Stat Diagnostic Imagining Performed 03/11/24 17:12 CT Abdomen and Pelvis [CT abd pelvis wo con] Stat Abdomen/Pelvis CT 03/11/24 17:12 EXAM: CT Abdomen and Pelvis Without Intravenous Contrast INDICATION: Right abdominal pain, diarrhea and hypotension. TECHNIQUE: Axial computed tomography images of the abdomen and pelvis without intravenous contrast. Sagittal and coronal reformatted images were created and reviewed. This CT exam was performed using one or more of the following dose reduction techniques: automated exposure control, adjustment of the mA and/or kV according to patient size, and/or use of iterative reconstruction technique. COMPARISON: Limited comparison made to CT chest which includes the upper abdomen 06/04/2023 FINDINGS: Limitations: None. Lung bases: No abnormality noted. Pleural space: No visualized pleural effusion or pneumothorax. Heart: Cardiomegaly. Mediastinum: No abnormality noted. ABDOMEN: Liver: Lack of intravenous contrast limits detection of some masses. No abnormality noted. Gallbladder and bile ducts: No calcified stones or surrounding fluid. Pancreas: No pancreatic mass, calcification, inflammation or ductal dilation noted. Spleen: No significant abnormality noted. Adrenals: Stable 2.8 x 2.6 cm right adrenal adenoma. No further assessment required. The left appears normal. Kidneys and ureters: Atrophic scarred right kidney. There is mild cortical scarring left kidney. Simple left renal cyst/s. No simple cyst follow-up necessary. Right kidney appears normal. No renal stone, hydronephrosis or perinephric fluid. Stomach and bowel: There is no intestinal obstruction. There is mild edema of the proximal ascending colon. No pneumatosis. The terminal ileum is identified and appears normal. PELVIS: Appendix: In the right lower quadrant centered over the expected location of the appendix are multiple pockets of extraluminal fluid and gas and generalized inflammation. The process and total measures approximately 10.4 cm long by 5.4 cm transverse by 4.4 cm AP with inflammation extending to involve the mid a ascending colon. Bladder: Appears normal for the degree of filling. No stones or inflammation. No large mass. Masses may not be detected in the absence of opacification. Reproductive: No abnormalities noted. ABDOMEN and PELVIS: Intraperitoneal space: No free air. No significant fluid collection. Bones/joints: Degenerative changes noted in the scoliotic spine. No acute osseous abnormality noted. Soft tissues: Umbilical hernia containing fat. Vasculature: No abdominal aortic aneurysm. Lymph nodes: No pathologically enlarged lymph nodes. IMPRESSION: 1. There is a moderate phlegmonous process in the right lower quadrant centered at the expected location of the appendix with multiple small air-fluid levels and free mesenteric gas. Findings most consistent with locally perforated appendicitis. There is no organized or drainable collection. 2. Atrophic right kidney and scarred left kidney. Appendiceal findings discussed by phone with Dr. Kevyn Khalil at 5:55 PM 03/11/2024. ACT 112: Negative or not required by law. Electronically signed by Shelly Escobar 03-11-2024 5:56 PM Chest X-Ray 03/11/24 20:27 Exam(s): XR CXR 1 VIEW EXAM: XR Chest, 1 View CLINICAL HISTORY: Pulmonary edema. TECHNIQUE: Frontal view of the chest. COMPARISON: Chest radiograph 04/05/2023 FINDINGS: Lungs: Bilateral airspace opacities may represent pulmonary edema and/or atypical infection. Pleural space: Small bilateral pleural effusions. No pneumothorax. Heart: Cardiomegaly. Mediastinum: Unremarkable. Normal mediastinal contour. Bones/joints: Degenerative changes of the spine are noted. No acute fracture. IMPRESSION: 1. Bilateral airspace opacities may represent pulmonary edema and/or atypical infection. 2. Cardiomegaly. 3. Small bilateral pleural effusions. Electronically signed by: Tigist Rice MD 03/11/24 23:47 PM Laboratory Results - last 48 hr 03/18/24 03/18/24 03/19/24 07:37 07:47 07:55 WBC 8.64 RBC 5.98 Hgb 12.6 L Hct 41.8 L MCV 69.9 L MCH 21.1 L MCHC 30.1 L RDW Std Deviation 36.5 RDW Coeff of Aram 16.2 H Plt Count 257 MPV 10.6 Sodium 140 Potassium 4.7 Chloride 108 H Carbon Dioxide 26 Anion Gap 6 BUN 17 Creatinine 2.18 H Est Cr Clr Drug Dosing 47.5 eGFR 33.61 BUN/Creatinine Ratio 7.8 L Glucose 84 POC Glucose 73 83 Estimat Average Glucose 137 Hemoglobin A1c 6.4 H Calcium 9.4 Magnesium 1.7 Pending Results Patient Have Any Pending Studies at Discharge: No Discharge Instructions Given to Patient (Per Discharging Provider) DISCHARGE INSTRUCTION TO PATIENT/FAMILY: Follow-up with your primary care provider within 1 week regarding: Posthospital discharge, medication review, medication refills and follow-up on all your medical problems including hypertension, prediabetes, LABS Please take all your discharge medications, discharge information and discharge instructions to all your doctors appointments. Avoid all NSAIDs including ibuprofen, Motrin, Advil, Aleve, naproxen, meloxicam, Toradol, diclofenac You were diagnosed with a perforated appendix. You was seen by surgeon and you are currently on antibiotics for total of 2 weeks. Please complete your full course of oral antibiotics Augmentin and follow-up with your primary care doctor and surgeon Follow-up with surgeon Dr. Farhat Zuluaga in 1 to 2 weeks time for follow-up and to discuss appendectomy ideally before completing a course of antibiotics. Follow-up with your institutional cook Dr. Walker in 1 to 2 weeks time regarding chronic kidney disease stage III and advised on resuming losartan and spironolactone You have prediabetes: Your A1c is 6.4. Avoid high sugar content food including sodas and desserts/sweets. Labs through PCP in 1 week: CBC, CMP, MG Total Time Total Time Spent Total Time Spent (In Minutes): 40 minutes Coding Level of Care Code 95468 INP/OBS DISCH >30 MIN Diagnoses Acute perforated appendicitis K35.32 H/O TIA (transient ischemic attack) and stroke Z86.73 Atrial fibrillation, permanent I48.21 Primary hypertension I10 Hypertension type: primary hypertension Dyslipidemia E78.5 Chronic kidney disease, stage III (moderate) N18.3 Secondary hyperparathyroidism N25.81 Neoplasm of prostate D49.59 Pre-diabetes R73.03
[2024-03-19 11:36] VITALS: BP 135/91; PULSE 80
== END 2024-03-19 13:15 | disposition home health service (06) | DRG 871 ==
LOC: ED 16:39 → 1E 19:29 → SUATTDRO 19:29 → 1E 21:45 → 2E 03-14 05:36